=== PATIENT | female | born 1965 | race Caucasian/White ===

== ENCOUNTER 2022-01-17 23:45 | Inpatient (IN) | payer MEDICARE, MEDICAID, SELFPAY ==
[2022-01-18 00:12] VITALS: BP 145/76; PULSE 79; RESP 16; TEMP 36.7; O2SAT 97; BMI 52.4
[2022-01-18 01:31] LABS: Bedside Glucose 196 mg/dL (74-106)
[2022-01-18] MEDS: APIXABAN 5 MG TABLET PO ×3 (02:14→22:45)
--- NOTE | 2022-01-18 02:53 | NURSING ---
2335 pt arrived from [facility] to the unit via cot and ambulance service. pt is alert and oriented x's 3 and is pleasant and cooperative with staff. clinical findings and admission assessment completed. pt declined any hs care when offered, eliquis given at 0215. time spent with pt was one hour and 30 minutes .
--- NOTE | 2022-01-18 04:24 | NURSING ---
REVIEWED AND AGREE WITH TARGET WORKER'S FUNCTIONAL ASSESSMENT AND HANDOFF CHARTING.
[2022-01-18 05:44] LABS: Hematocrit 43.3 % (37-47); Hemoglobin 13.8 g/dL (12.0-15.0); Mean Corp Hgb Conc 31.9 g/dL (32-36); Mean Corpuscular Hgb 24.3 pg (27.0-32.0); Mean Corpuscular Volume 76.1 fL (81-99); Mean Platelet Vol. 10.2 fl (6.2-12.0); POSITIVE MORPHOLOGY YES; Platelet Count 332 K/mm3 (150-450); RBC Distribution Width CV 21.9 % (11.6-14.6); RBC Distribution Width SD 57.8 fl (35.1-43.9); Red Blood Count 5.69 M/mm3 (4.2-5.4); White Blood Count 11.4 K/mm3 (4.4-11.0)
[2022-01-18 05:46] LABS: Scan Indicated on CBC? Y/N YES- FLAGS NOTED
[2022-01-18 06:10] LABS: Differential Comment SCANNED
[2022-01-18 06:28] LABS: ALB/GLOB Ratio 0.8 RATIO (0.9-2.4); AST(SGOT) 24 U/L (15-37); Alanine Aminotransfer ALT/SGPT 28 U/L (13-56); Albumin, Serum 3.3 g/dL (3.2-5.0); Alkaline Phosphatase 97 U/L (45-117); Anion Gap 4 (5-15); BUN 26 mg/dL (7-18); BUN/Creat Ratio 25.2 RATIO (10-20); Calcium,Total 9.6 mg/dL (8.5-10.1); Chloride 102 mmol/L (98-107); Creatinine, Serum 1.03 mg/dL (0.55-1.02); EST Glomerular Filtration Rate 59 mL/min (>60); Est Glom Filt Rate - Afr Amer 72 mL/min (>60); Estimated Creatinine Clearance 56.19 ml/min; Globulin 3.9 g/dL (2.2-4.2); Glucose 184 mg/dL (74-106); Magnesium 1.9 mg/dL (1.6-2.6); Phosphorus 4.6 mg/dL (2.5-4.9); Potassium 3.6 mmol/L (3.5-5.1); Protein, Total 7.2 g/dL (6.4-8.2); Sodium Level 138 mmol/L (136-145)
[2022-01-18 07:01] LABS: Bedside Glucose 211 mg/dL (74-106)
[2022-01-18] MEDS: Aspirin 81 MG TAB.CHEW PO (07:57)
[2022-01-18 10:00] VITALS: BP 125/57; PULSE 78; RESP 18; TEMP 36.4; O2SAT 96
[2022-01-18] MEDS: Amiodarone 200 MG Tablet PO (10:13)
[2022-01-18] MEDS: Senna/Docusate Sodium 1 Tablet 2 TABLET PO ×2 (10:13→22:46)
[2022-01-18] MEDS: Potassium Chloride Oral Tablet 20 MEQ PO (10:13)
[2022-01-18] MEDS: Furosemide 40 MG Tablet PO ×2 (10:13→18:29)
[2022-01-18] MEDS: Spironolactone 25 MG Tablet PO (10:13)
[2022-01-18] MEDS: Carvedilol 6.25 MG Tablet PO ×2 (10:14→22:45)
[2022-01-18] MEDS: Empagliflozin 25 MG Tablet PO (10:14)
[2022-01-18] MEDS: Nystatin Powder 15gm Bottle 1 APPLIC TOPICAL (10:18)
[2022-01-18] MEDS: Menthol/Lanolin/Calamine/Znox 113 GM Tube 1 APPLIC TOPICAL (10:19)
[2022-01-18 11:36] LABS: Bedside Glucose 244 mg/dL (74-106)
--- NOTE | 2022-01-18 12:19 | HP.PCM_ITS ---
HPI - General General Date of Admission: 01/17/22 HPI Narrative KARI DEJESUS, is a 56 YO F with a PMH of HTN, DM II, morbid obesity, PAF, chronic CHF with reduced EF at 35-40% on ECHO in October 2021 (thought to be due to tachycardia induced CM), prolonged QT interval, chronic anticoagulation on Xarelto and a hx of DCCV at [facility] in October of 2021 for AF (uncontrolled with Metoprolol, Diltiazem and Tikosyn and with decompensated acute CHF). She was later transitioned from Tikosyn to Amiodarone due to QT prolongation. Kari presented to an outside ED on 01/10/22 with c/o SARMIENTO and a sense that something was not right. A NC CTB was unremarkable and she was discharged home. The following day she had R arm weakness and slurred speech and presented to the ED at [facility]. A NC CT brain had no acute findings. CTA showed no large vessel occlusion. On PE she had a R facial droop and weakness/numbness in the R arm and the R leg. The NIHSS score was 8. MRI was not readily available and on 01/12/22 she had a repeat CT of the brain which showed increased conspicuity of multiple hypodensities throughout the bilateral cerebral hemispheres, most notable in the left basal ganglia and the frontal lobe. There was no intracranial hemorrhage. A CTP was symmetric. she was outside the window for TPA at presentation. She was seen and evaluated by PT/OT/ST and a recommendation for transfer to an inpt rehab unit was made. She was transferred to the inpt acute rehab unit at [facility] on 01/17/22 for 3 hours of therapy daily to restore function/independence at or near her prior level of function. Prior to the stroke she used a WW and was independent with all ADL's. She lives with her mot her. Prior to transfer she was transitioned from Xarelto to Eliquis due to presumed embolic CVA's while on Xarelto. [facility] Medical History (Updated 01/23/22 @ 15:[address] Marva Kimbrough DO) Atrial fibrillation Chronic systolic CHF (congestive heart failure) Diabetes mellitus, type 2 History of cardioversion Morbid obesity with BMI of 50.0-59.9, adult Home Medications amiodarone 200 mg PO DAILY 01/18/22 [History Last Taken Unknown] apixaban 5 mg PO Q12H 01/18/22 [History Last Taken Unknown] aspirin 81 mg PO DAILY 01/18/22 [History Last Taken Unknown] atorvastatin 80 mg PO QHS 01/18/22 [History Last Taken Unknown] carvedilol 6.25 mg PO BID 01/18/22 [History Last Taken Unknown] empagliflozin 10 mg PO DAILY 01/18/22 [History Last Taken Unknown] furosemide 40 mg PO BID 01/18/22 [History Last Taken Unknown] potassium chloride 20 meq PO DAILY 01/18/22 [History Last Taken Unknown] spironolactone 25 mg PO DAILY 01/18/22 [History Last Taken Unknown] Allergy/AdvReac Type Severity Reaction Status Date / Time loperamide [From Imodium A-D] Allergy Hives Verified 01/18/22 00:34 Family History (Updated 01/20/22 @ 12:[address] Marva Kimbrough DO) Father Diabetes Myocardial infarction Mother Cancer ovarian CA Surgical History (Updated 01/20/22 @ 12:[address] Marva Kimbrough DO) History of section Social History (Updated 01/20/22 @ 13:[address] Marva Kimbrough DO) household members: spouse Smoking Status: Never smoker alcohol intake: never substance use type: does not use ROS Constitutional Constitutional: Reports change in weight, weakness, weight loss and other Deta ils: She tells me that she has lost 100 lbs since October with diuretics and change in her diet. ; Denies anorexia, chills, fatigue, fever(s) or night sweats Eyes Eyes: Denies blurry vision, change in vision, eye pain, itchy eyes or loss of vision ENT HEENT: Denies abnormal hearing, dysphagia, headache(s), hearing loss, nasal congestion or sore throat Cardiovascular Cardiovascular: Reports edema and other Details: lightheadedness when first sitting up and when standing. ; Denies chest pain, dyspnea on exertion, lightheadedness, orthopnea, palpitations, paroxysmal nocturnal dyspnea or sync ope Respiratory/Chest Respiratory/Chest: Reports shortness of breath with exertion and other Details: She snores and sometimes wakes herself up. She also has restless legs. She has never had a sleep study. ; Denies cough, dyspnea, shortness of breath at rest or wheezing Gastrointestinal Gastrointestinal: Denies abdominal pain, constipation, diarrhea, dyspepsia, hematemesis, hematochezia, nausea or vomiting Genitourinary Genitourinary: Denies dysuria, hematuria, nocturia, urinary frequency, urinary hesitancy, urinary incontinence or urinary urgency Musculoskeletal Musculoskeletal: Reports joint pain, joint swelling and other Details: She c/o pain in both knees and she is on disability for this ; Denies back pain or neck pain Integumentary Integumentary: Reports dry skin; Denies jaundice, rash or wounds Neurologic Neurologic: Reports abnormal gait, dizziness and focal weakness; Denies confusion, disequilibrium, headache(s), paresthesias, seizures, sensory deficit or tremor(s) Psychiatric Psychiatric: Reports depression; Denies anxiety, homicidal ideation or suicidal ideation Endocrine Endocrinology: Reports change in body appearance; Denies polydipsia or polyuria Hematologic/Lymphatic Hematologic/Lymphatic: Denies easy bleeding, easy bruising or lymphadenopathy Allergic/Immunologic Allergic/Immunologic: Denies rhinitis, eczemia or asthma Vital Signs Vital Signs Vital Signs: 01/18/22 00:12 01/18/22 10:00 01/18/22 10:30 Temperature 98.0 F 97.6 F L Temperature Source Oral Oral Pulse Rate 79 78 Respiratory Rate 16 18 Respiratory Effort Normal Non-Labored Respiratory Depth Normal Respiratory Pattern Normal Blood Pressure 145/76 H 125/57 H Blood Pressure Mean 99 79 Blood Pressure Source Monitor Monitor Blood Pressure Position Semi-Fowlers Semi-Fowlers Blood Pressure Location Left Arm Left Arm Pulse Ox 97 96 Oxygen Delivery Method Room Air Room Air Room Air Weight Weight: 315 lb Body Mass Index (BMI) 52.4 Indicators for Scoring Admitted with or Primary Diagnosis of CVA/Stroke: Yes Hx of CVA/Stroke: Yes Modified [place] Score MRS Score at time of Evaluation: 5-Severe disability NIHSS NIHSS 1a. Level of Consciousness: Alert; keenly responsive 1b. LOC Questions: Answers BOTH questions correctly. 1c. LOC Commands: Performs both tasks correctly. 2. Best Gaze: Normal 3. Visual: No visual loss 4. Facial Palsy: Minor paralysis (flattened nasolabial fold, asymmetry on smiling) 5a. Left Arm: No drift; arm holds 90 (or 45) degrees for full 10 seconds 5b. Right Arm: No movement 6a. Left Leg: No drift; leg holds 30-degree position for full 5 seconds 6b. Right Leg: Drift; leg falls by the end of 5-seconds, but does not hit bed 7. Limb Ataxia: Absent 8. Sensory: Normal; no sensory loss 9. Best Language: [id number] aphasia; (mild) 10. Dysarthria: [id number] dysarthria; 11. Extinction and Inattention: No abnormality Total: 8 Stroke Questions Stroke Team Activated: No (this is not the acute presentation of stroke/we are rehab for completed CVA) Physical Exam Const alert, oriented x3 and well nourished Constitutional Narrative: Tearful at times and telling me that she is depressed. General Appearance: cooperative and well developed HEENT normocephalic Eyes PERRL and EOMs intact bilaterally Neck supple and no carotid bruits General: trachea midline; Negative for lymphadenopathy Resp normal respiratory effort and clear to auscultation bilaterally Effort and Inspection: Negative for tachypneic or uses accessory muscles Auscultation: diminished lung sounds Cardio regular rate, regular rhythm, S1 normal heart sound, S2 normal heart sound, no murmurs and no gallops Cardio Narrative: Distant heart sounds - more likely than not due to body habitus. GI soft to palpation, non-tender and non-distended GI Narrative: Distant BS's, no guarding with palpation. Extremity no calf tenderness Extremity Narrative: She has ANDRES wraps on and they are falling down. General Extremity: edema; Negative for clubbing or cyanosis Skin General Skin Exam: no breakdown Rashes: No rashes noted Wounds: Negative for wounds noted Neuro Neuro Narrative: see NIHSS No movement at all in the RUE......not even a shoulder shrug. R facial droop and drooling. Dysarthria. Some expressive aphasia......saying the wrong pronouns and words at times........she can self co rrect if I ask her to repeat. Has weakness in the R leg but, she was seated in a chair at the time of my exam and I will need to re-evaluate when she is in bed. Psych cooperative Mood & Affect: depressed; Negative for anxious Thought Content: No delusion(s) and No hallucination(s) Results Lab / Micro Data Result Diagrams: 01/18/22 05:36 01/23/22 05:49 Labs: Laboratory Results - last 24 hr 01/18/22 01:16: POC Glucose 196 H 01/18/22 05:36: WBC 11.4 H, RBC 5.69 H, Hgb 13.8, Hct 43.3, MCV 76.1 L, MCH 24.3 L, MCHC 31.9 L, RDW Std Deviation 57.8 H, RDW Coeff of Gwendolyn 21.9 H, Plt Count 332, MPV 10.2, Differential Comment SCANNED 01/18/22 05:36: Sodium 138, Potassium 3.6, Chloride 102, Carbon Dioxide 32.0, Anion Gap 4 L, BUN 26 H, Creatinine 1.03 H, Estim Creat Clear Calc 56.19, Est GFR (MDRD) Af Amer 72, Est GFR (MDRD) Non-Af 59 L, BUN/Creatinine Ratio 25.2 H, Glucose 184 H, Calcium 9.6, Phosphorus 4.6, Magnesium 1.9, Total Bilirubin 1.70 H, AST 24, ALT 28, Alkaline Phosphatase 97, Total Protein 7.2, Albumin 3.3, Globulin 3.9, Albumin/Globulin Ratio 0.8 L 01/18/22 06:55: POC Glucose 211 H 01/18/22 11:32: POC Glucose 244 H Assessment & Plan Assessment/Plan (1) Physical debility: (2) Embolic cerebral infarction: (3) Atrial fibrillation: QUALIFIERS: Atrial fibrillation type: persistent (not longstanding) Qualified Code(s): I48.19 - Other persistent atrial fibrillation (4) Tachycardia induced cardiomyopathy: (5) Chronic anticoagulation: (6) Dysarthria: (7) Right hemiparesis: (8) Facial droop due to stroke: (9) Sleep disorder breathing: (10) Morbid obesity with BMI of 50.0-59.9, adult: (11) RBC microcytosis: (12) CRF (chronic renal failure): QUALIFIERS: Chronic kidney disease stage: stage 2 (mild) Qualified Code(s): N18.2 - Chronic kidney disease, stage 2 (mild) (13) Elevated bilirubin: (14) Restless leg: (15) Depression: QUALIFIERS: Depression Type: reactive depression Qualified Code(s): F32.9 - Major depressive disorder, single episode, unspecified (16) Diabetes mellitus, type 2: QUALIFIERS: Diabetes mellitus care home insulin use: without care home use Diabetes mellitus complication status: with circulatory complication Diabetes mellitus complication detail: with other circulatory complications Qualified Code(s): E11.59 - Type 2 diabetes mellitus with other circulatory complications (17) Chronic systolic CHF (congestive heart failure): PLAN: PLAN PT for gait stability OT for ADL's ST for evaluation Analgesics as needed Bowel protocol Fall precautions Assess for Anxiety/Depression GI prophylaxis not necessary - she has no hx of GERD or PUD and she is asymptomatic DVT prophylaxis not necessary - she is on full dose Eliquis due to AF Follow up with PCP, cardiology and neurology following DC from IP Rehab AM lab including CMP, CBC, Mag and Phos - personally reviewed Start Effexor XR 75 mg daily for depression, to help suppress appetite and for chronic pain. Overnight trending pulse ox - apparently she has been wearing her sister's CPAP......she has never had a sleep study. Formal sleep study post DC counselling given for weight loss Nutritional consult with the industrial machine operator I suspect she is going to need SNF for additional therapy following DC from acute rehab. Would benefit from psychotherapy. BS's are elevated on Jardiance - may be transient due to recent CVA. Will order SSI coverage and monitor for a few days
--- NOTE | 2022-01-18 13:14 | PCM.RU.PYE ---
Admission Information Primary Diagnosis:: Post stroke debility. Status Changes from Prescreening?: No changes Identified Actual Problem List:: Skin Intergrity, Depression, Alteration in Sleep, Mobility Impaired, Self Care Deficit, Diabetes, Hyperglycemia, Alteration/ Air Exchange, Fluid Change-Dehydration and Alteration-Leisure Activ. Potential Problem List:: DVT, Bleeding, Infection, UTI, Aspiration, Falls, Skin Integrity and Depression Risk of Complications DVT: CORI Hose and - (Eliquis) Bleeding: Monitor Lab Values, Nursing to Teach Precautions for anti-coagulation therapy., Wound, if applicable, to be assessed every shift. and Stroke patients assessed for lethargy or change in status. Infection: Clinical Staff to Monitor for S/S of infection: and S/S of infection include fever, redness, warmth, etc. Urinary Tract Infection: Monitor for frequency, burning, discomfort, or incontinence. and Nursing will obtain urine sample for urinalysis and C&S when ordered. Aspiration: Clinical staff will monitor for coughing, drooling, congestion., Speech will evaluate swallowing and dsyphasia. and Nursing will monitor patient swallowing during meals. Falls: Patient will be evaluated for Fall Precautions and Patient will be placed on Fall Precautions as indicated per protocol. Skin Breakdown: Nursing will assess skin daily using assessment tool. and Nursing will place on Skin Breakdown Precautions as indicated. Pain: Clinical staff will assess patient's pain level per protocol., Medications will be given, if needed, and the pain level reassessed. and Other methods: Massage, distraction, decrease stimulus, etc. used PRN. Plan of Care Patient requires physician specializing in physical medicine and rehab oversight to provide close medical supervision of rehab issues including: Pain Management, Sleep Problems, Bowel and Bladder, Medical and co-morbidity Management, DVT prophylaxis, Rehabilitation Leadership and Coordination of treatment team Patient needs Physical Therapy: For a minimum of 1 hour and At least 5 out of 7 days Patient needs Physical Therapy to improve:: Mobility, Strengthening, Transfers, Stretching, ROM, Endurance, Stairs, Gait and Balance Patient needs Occupational Therapy: For a minimum of 1 hour and At least 5 out of 7 days Patient needs Occupational Therapy to improve ADL's incl.: Eating, Grooming, Bathing, Dressing, Toileting, Toilet transfers, Community Reintegration, Higher functioning activities, Household tasks, Adaptive Equipment, Splinting and Other activities as determined Patient requires speech therapy: For a minimum of 1 hour and At least 5 out of 7 days Patient requires speech therapy for: Swallowing, Cognition, Language Skills and Compensatory Strategies Patient requires 24/7 Rehabilitation Nursing for: Pain Issues, Identifying and preventing risk factors, Monitoring and reporting current medical conditions, Assisting with ambulation, transfer, and all ADL's, Teaching patients about disease process and medications, Family teaching, Providing safe environment, Bowel and Bladder Issues, Skin integrity and Medication Management Patient needs Statistical Typist/ Case Management for: Discharge Planning, Arranging Home Equipment or Services and Family Interventions Patient needs Dietary and Nutrition Services for: Adequate Nutrition, Nutritional Supplements and Nutritional Education Goals Patient will remain: free from falls and or injury at time of discharge. Patient will perform bed mobility at: MOD I level of assist. Patient will complete transfers from bed to chair at: MOD I level of assist. Patient will ambulate: - (15 feet using the rail with min bruno X 2 for gait stability and safety) Patient will propel wheelchair: 100 feet and with MOD I assist Patient will complete upper body dressing at: - (Minimal assistance x1) Patient will complete lower body dressing at: - (Minimal assistance x1) Patient will complete toileting at: - (Minimal assistance x2 for safety) Patient will perform bathing at: MOD I level of assist. Patient will complete grooming at: - (Minimal assistance x1) Patient will complete home management skills at: MOD I level of assist. Patient will achieve: - (1 curb step) Patient will have pain level of: of 3 or less Patient's skin will: remain intact Patient will receive: adequate nutrition. Discharge Planning Pt Prognosis for Sig. Practical Improv. w/in Reasonable Time: Good Estimated Length of stay (days): 28 Anticipated D/C Destination: Longterm Facility Was Preadmission Assessment Accurate?: Yes
[2022-01-18 14:00] LABS: Cholesterol 104 mg/dL (200); High Density Lipoprotein 32 mg/dL; Triglycerides 138 mg/dL; Very Low Density Lipoprotein 28 mg/dL (5-40)
[2022-01-18 14:07] LABS: Hemoglobin A1c 7.6 % (3.8-5.6)
[2022-01-18 14:39] VITALS: BMI 52.4
--- NOTE | 2022-01-18 14:40 | CASEMGMT ---
Social Work SW completed PHQ9 depression assessment with pt due to stroke. Pt with score of 11/17 indicating minimal depression. Pt educated on stroke and depression correlation. ROBERT Crenshaw
[2022-01-18] MEDS: Insulin Lispro 100 UNIT/ML INSULN.PEN SC (16:48)
[2022-01-18 19:00] VITALS: BP 128/65; PULSE 73; RESP 16; TEMP 36.2; O2SAT 94
[2022-01-18 21:54] VITALS: PULSE 77; O2SAT 96
[2022-01-18] MEDS: Arthritis Pain Compound 60 CLICK TUBE TOPICAL (22:45)
[2022-01-18] MEDS: SACUBITRIL/VALSARTAN 24/26 MG TABLET 1 EACH PO (22:46)
[2022-01-18 23:31] LABS: Bedside Glucose 214 mg/dL (74-106)
[2022-01-18 23:47] LABS: Bedside Glucose 182 mg/dL (74-106)
[2022-01-19 01:25] VITALS: BMI 52.4
[2022-01-19 06:36] VITALS: O2SAT 97
[2022-01-19 06:36] LABS: Bedside Glucose 167 mg/dL (74-106)
[2022-01-19] MEDS: Insulin Lispro 100 UNIT/ML INSULN.PEN SC ×3 (07:49→16:46)
[2022-01-19] MEDS: Aspirin 81 MG TAB.CHEW PO (08:11)
[2022-01-19 08:40] VITALS: BP 130/64; PULSE 56; RESP 20; TEMP 36.8; O2SAT 97
[2022-01-19] MEDS: Empagliflozin 25 MG Tablet PO (09:10)
[2022-01-19] MEDS: Venlafaxine XR 75 MG Capsule PO (09:10)
[2022-01-19] MEDS: APIXABAN 5 MG TABLET PO ×2 (09:10→20:59)
[2022-01-19] MEDS: Spironolactone 25 MG Tablet PO (09:11)
[2022-01-19] MEDS: SACUBITRIL/VALSARTAN 24/26 MG TABLET 1 EACH PO ×2 (09:11→20:48)
[2022-01-19] MEDS: Carvedilol 6.25 MG Tablet PO ×2 (09:11→20:48)
[2022-01-19] MEDS: Potassium Chloride Oral Tablet 20 MEQ PO (09:11)
[2022-01-19] MEDS: Amiodarone 200 MG Tablet PO (09:11)
[2022-01-19 11:41] LABS: Bedside Glucose 189 mg/dL (74-106)
[2022-01-19] MEDS: Arthritis Pain Compound 60 CLICK TUBE TOPICAL ×2 (11:57→20:49)
[2022-01-19] MEDS: Menthol/Lanolin/Calamine/Znox 113 GM Tube 1 APPLIC TOPICAL ×2 (11:58→20:49)
[2022-01-19] MEDS: Nystatin Powder 15gm Bottle 1 APPLIC TOPICAL ×2 (11:59→20:50)
[2022-01-19] MEDS: Furosemide 40 MG Tablet PO ×2 (11:59→18:12)
[2022-01-19] MEDS: Senna/Docusate Sodium 1 Tablet 2 TABLET PO (11:59)
[2022-01-19 14:47] VITALS: BMI 52.4
[2022-01-19 16:51] LABS: Bedside Glucose 192 mg/dL (74-106)
[2022-01-19 19:29] VITALS: BP 155/76; PULSE 63; RESP 18; TEMP 36.5; O2SAT 97
[2022-01-19 21:51] LABS: Bedside Glucose 166 mg/dL (74-106)
[2022-01-19 22:04] VITALS: PULSE 63; RESP 18; O2SAT 97
[2022-01-19 22:35] VITALS: BMI 52.4
--- NOTE | 2022-01-20 04:08 | NURSING ---
REVIEWED AND AGREE WITH STAGE SET UP WORKER'S FUNCTIONAL ASSESSMENT AND HANDOFF CHARTING.
[2022-01-20 05:15] VITALS: BP 137/71; BP 141/72; PULSE 56; PULSE 57
--- NOTE | 2022-01-20 05:18 | NURSING ---
When obtaining orthostatics pt was unable to stand.
[2022-01-20 06:30] LABS: Bedside Glucose 157 mg/dL (74-106)
[2022-01-20 06:48] VITALS: O2SAT 95
[2022-01-20] MEDS: Insulin Lispro 100 UNIT/ML INSULN.PEN SC ×2 (07:54→17:01)
[2022-01-20] MEDS: Aspirin 81 MG TAB.CHEW PO (07:55)
[2022-01-20] MEDS: Spironolactone 25 MG Tablet PO (07:55)
[2022-01-20] MEDS: Venlafaxine XR 75 MG Capsule PO (07:56)
[2022-01-20] MEDS: Amiodarone 200 MG Tablet PO (07:56)
[2022-01-20] MEDS: Arthritis Pain Compound 60 CLICK TUBE TOPICAL ×2 (07:56→22:02)
[2022-01-20] MEDS: Carvedilol 6.25 MG Tablet PO ×2 (07:56→22:02)
[2022-01-20] MEDS: Potassium Chloride Oral Tablet 20 MEQ PO (07:57)
[2022-01-20] MEDS: Empagliflozin 25 MG Tablet PO (07:57)
[2022-01-20] MEDS: SACUBITRIL/VALSARTAN 24/26 MG TABLET 1 EACH PO ×2 (07:57→22:02)
[2022-01-20] MEDS: Furosemide 40 MG Tablet PO ×2 (07:57→17:02)
[2022-01-20] MEDS: Senna/Docusate Sodium 1 Tablet 2 TABLET PO (07:58)
[2022-01-20] MEDS: APIXABAN 5 MG TABLET PO ×2 (07:58→22:02)
[2022-01-20] MEDS: Menthol/Lanolin/Calamine/Znox 113 GM Tube 1 APPLIC TOPICAL ×2 (08:03→22:03)
[2022-01-20] MEDS: Nystatin Powder 15gm Bottle 1 APPLIC TOPICAL ×2 (08:05→22:03)
[2022-01-20 08:30] VITALS: BP 117/72; PULSE 62; RESP 16; TEMP 36.7; O2SAT 96
[2022-01-20 11:21] LABS: Bedside Glucose 111 mg/dL (74-106)
--- NOTE | 2022-01-20 15:56 | PN_ITS ---
Subjective Subjective Afebrile VSS Maintaining appropriate oxygen saturation on RA Oral intake is good Discussed with nursing - no problems that need addressed Reviewed the PT/OT/ST notes Medication list reviewed. The blood sugar record was reviewed. There have been no blood sugars greater than 200 as of yet. She is sleeping well. the overnight trending pulse ox was reviewed. the pulse ox drops to 89% or less approximately 3.5% of the time she was monitored. Denies chest pain, shortness of breath at rest, dysuria, cephalgia, nausea/vomiting/abdominal pain, lightheadedness, calf pain. She has no bleeding from the nose, gums, anus or in the urine. Objective Data Objective Data Vital Signs: Vital Signs Temp Pulse Resp BP Pulse Ox 98.1 F 62 16 117/72 96 01/20/22 08:30 01/20/22 08:30 01/20/22 08:30 01/20/22 08:30 01/20/22 08:30 Oxygen Flow Rate (L/min) 0 Oxygen Delivery Method Room Air Weight: 328 lb 14.875 oz Body Mass Index (BMI) 52.4 Intake & Output: Intake and Output for Last 24 Hours 01/18/22 01/19/22 01/20/22 23:59 23:59 23:59 Intake Total 1320 / 1320 Balance 1320 / 1320 Lab / Micro Data Result Diagrams: 01/18/22 05:36 01/23/22 05:49 Labs: Laboratory Results - last 24 hr 01/19/22 16:44: POC Glucose 192 H 01/19/22 21:47: POC Glucose 166 H 01/20/22 06:25: POC Glucose 157 H 01/20/22 11:12: POC Glucose 111 H Physical Exam Const alert, oriented x3 and no apparent distress General Appearance: cooperative Resp normal respiratory effort and clear to auscultation bilaterally Resp Narrative: Diminished air exchange in the bases however this may be due to body habitus. Effort and Inspection: able to speak in complete sentences Cardio regular rate, regular rhythm, no murmurs and no gallops GI normal to inspection, nondistended, normoactive bowel sounds, soft to palpation and non-tender Extremity no calf tenderness Extremity Narrative: She has some pedal edema but it is improving with the ANDRES wraps Skin General Skin Exam: no breakdown Rashes: no rashes Assessment & Plan Assessment/Plan (1) Embolic cerebral infarction: (2) Atrial fibrillation: QUALIFIERS: Atrial fibrillation type: persistent (not longstanding) Qualified Code(s): I48.19 - Other persistent atrial fibrillation (3) Sleep disorder breathing: (4) Diabetes mellitus, type 2: QUALIFIERS: Diabetes mellitus termite control servicer insulin use: without termite control servicer use Diabetes mellitus complication status: with circulatory complication Diabetes mellitus complication detail: with other circulatory complications Qualified Code(s): E11.59 - Type 2 diabetes mellitus with other circulatory complications PLAN: 1. Will need an overnight sleep study at [place]. STOP BANG score is 6 and she has an abnormal overnight trending pulse ox 2. continue the SSI through the weekend and if there are no BS's > 200 will likely DC and continue Jardiance. 3. SSRI's can increase the hypoglycemic efficacy of the Jardiance so will monitor closely while she is being started on Effexor. Charges/Coding Visit Charges Inpatient E&M: 06587 Subs Hosp L2
[2022-01-20 16:16] LABS: Bedside Glucose 186 mg/dL (74-106)
[2022-01-20 16:25] VITALS: BMI 52.4
[2022-01-20 19:27] VITALS: BP 154/77; PULSE 89; RESP 16; TEMP 36.6; O2SAT 95
[2022-01-20 21:17] LABS: Bedside Glucose 195 mg/dL (74-106)
[2022-01-21 01:27] VITALS: BMI 52.4
--- NOTE | 2022-01-21 02:19 | NURSING ---
Reviewed and agree with TRIBAL JUDGE documentation and assessment charting.
[2022-01-21 06:51] LABS: Bedside Glucose 154 mg/dL (74-106)
[2022-01-21 07:05] VITALS: BP 141/69; PULSE 56; RESP 18; TEMP 36; O2SAT 94
[2022-01-21] MEDS: Insulin Lispro 100 UNIT/ML INSULN.PEN SC ×3 (08:18→17:05)
[2022-01-21] MEDS: Spironolactone 25 MG Tablet PO (08:19)
[2022-01-21] MEDS: Arthritis Pain Compound 60 CLICK TUBE TOPICAL ×2 (08:19→20:48)
[2022-01-21] MEDS: Aspirin 81 MG TAB.CHEW PO (08:19)
[2022-01-21] MEDS: Nystatin Powder 15gm Bottle 1 APPLIC TOPICAL ×2 (08:20→20:50)
[2022-01-21] MEDS: Amiodarone 200 MG Tablet PO (08:20)
[2022-01-21] MEDS: Menthol/Lanolin/Calamine/Znox 113 GM Tube 1 APPLIC TOPICAL ×2 (08:20→20:48)
[2022-01-21] MEDS: Carvedilol 6.25 MG Tablet PO ×2 (08:21→20:51)
[2022-01-21] MEDS: Venlafaxine XR 75 MG Capsule PO (08:22)
[2022-01-21] MEDS: Empagliflozin 25 MG Tablet PO (08:23)
[2022-01-21] MEDS: APIXABAN 5 MG TABLET PO ×2 (08:23→20:51)
[2022-01-21] MEDS: SACUBITRIL/VALSARTAN 24/26 MG TABLET 1 EACH PO ×2 (08:23→20:51)
[2022-01-21] MEDS: Potassium Chloride Oral Tablet 20 MEQ PO (08:24)
[2022-01-21] MEDS: Senna/Docusate Sodium 1 Tablet 2 TABLET PO ×2 (08:25→20:50)
[2022-01-21] MEDS: Furosemide 40 MG Tablet PO ×2 (08:25→17:06)
[2022-01-21 09:46] VITALS: PULSE 56; O2SAT 96
[2022-01-21 11:46] LABS: Bedside Glucose 164 mg/dL (74-106)
[2022-01-21 16:27] VITALS: BMI 52.4
[2022-01-21 16:56] LABS: Bedside Glucose 159 mg/dL (74-106)
--- NOTE | 2022-01-21 20:18 | CPS ---
was told by nurse cont pox trend was never taken out of pt room-took out [place] 01/21/22
[2022-01-21 20:30] VITALS: BP 147/86; PULSE 68; PULSE 69; RESP 18; TEMP 36.6; O2SAT 94; BMI 52.4
[2022-01-21 23:01] LABS: Bedside Glucose 167 mg/dL (74-106)
--- NOTE | 2022-01-22 01:52 | NURSING ---
Reviewed and agree with CERTIFIED PESTICIDE APPLICATOR assessment.
[2022-01-22 06:51] LABS: Bedside Glucose 159 mg/dL (74-106)
[2022-01-22 07:43] VITALS: BP 140/62; PULSE 57; RESP 16; TEMP 36.3; O2SAT 97
[2022-01-22] MEDS: Insulin Lispro 100 UNIT/ML INSULN.PEN SC ×2 (08:32→16:56)
[2022-01-22] MEDS: Furosemide 40 MG Tablet PO ×2 (08:35→18:35)
[2022-01-22] MEDS: Arthritis Pain Compound 60 CLICK TUBE TOPICAL ×2 (08:38→21:41)
[2022-01-22] MEDS: APIXABAN 5 MG TABLET PO ×2 (08:39→21:41)
[2022-01-22] MEDS: Spironolactone 25 MG Tablet PO (08:39)
[2022-01-22] MEDS: Carvedilol 6.25 MG Tablet PO ×2 (08:40→21:41)
[2022-01-22] MEDS: Venlafaxine XR 75 MG Capsule PO (08:40)
[2022-01-22] MEDS: Aspirin 81 MG TAB.CHEW PO (08:40)
[2022-01-22] MEDS: Empagliflozin 25 MG Tablet PO (08:40)
[2022-01-22] MEDS: Potassium Chloride Oral Tablet 20 MEQ PO (08:40)
[2022-01-22] MEDS: Amiodarone 200 MG Tablet PO (08:40)
[2022-01-22] MEDS: Senna/Docusate Sodium 1 Tablet 2 TABLET PO (08:40)
[2022-01-22] MEDS: SACUBITRIL/VALSARTAN 24/26 MG TABLET 1 EACH PO ×2 (08:41→21:41)
[2022-01-22] MEDS: Nystatin Powder 15gm Bottle 1 APPLIC TOPICAL ×2 (08:54→21:42)
[2022-01-22] MEDS: Menthol/Lanolin/Calamine/Znox 113 GM Tube 1 APPLIC TOPICAL ×2 (08:54→21:41)
[2022-01-22 12:16] LABS: Bedside Glucose 142 mg/dL (74-106)
[2022-01-22 16:47] VITALS: BMI 52.4
[2022-01-22 17:01] LABS: Bedside Glucose 151 mg/dL (74-106)
[2022-01-22 19:45] VITALS: BP 128/65; PULSE 63; RESP 18; TEMP 36.4; O2SAT 96; BMI 52.4
[2022-01-22 22:01] LABS: Bedside Glucose 158 mg/dL (74-106)
--- NOTE | 2022-01-23 03:35 | NURSING ---
Reviewed and agree with HOUSEKEEPING SUPERVISOR assessment.
[2022-01-23 06:26] LABS: Anion Gap 4 (5-15); BUN 33 mg/dL (7-18); BUN/Creat Ratio 33.7 RATIO (10-20); Calcium,Total 8.9 mg/dL (8.5-10.1); Chloride 105 mmol/L (98-107); Creatinine, Serum 0.98 mg/dL (0.55-1.02); EST Glomerular Filtration Rate 63 mL/min (>60); Est Glom Filt Rate - Afr Amer 76 mL/min (>60); Estimated Creatinine Clearance 59.05 ml/min; Glucose 134 mg/dL (74-106); Magnesium 2.4 mg/dL (1.6-2.6); Potassium 4.1 mmol/L (3.5-5.1); Sodium Level 140 mmol/L (136-145)
[2022-01-23 06:41] LABS: Bedside Glucose 153 mg/dL (74-106)
[2022-01-23 07:03] VITALS: O2SAT 95
[2022-01-23] MEDS: Insulin Lispro 100 UNIT/ML INSULN.PEN SC ×2 (07:29→11:46)
[2022-01-23] MEDS: Aspirin 81 MG TAB.CHEW PO (07:32)
[2022-01-23 07:46] VITALS: BP 151/68; PULSE 58; RESP 16; TEMP 36.3; O2SAT 100
[2022-01-23] MEDS: Furosemide 40 MG Tablet PO ×2 (10:02→18:07)
[2022-01-23] MEDS: Arthritis Pain Compound 60 CLICK TUBE TOPICAL ×4 (10:02→20:33)
[2022-01-23] MEDS: Potassium Chloride Oral Tablet 20 MEQ PO (10:02)
[2022-01-23] MEDS: SACUBITRIL/VALSARTAN 24/26 MG TABLET 1 EACH PO ×2 (10:03→20:30)
[2022-01-23] MEDS: Amiodarone 200 MG Tablet PO (10:03)
[2022-01-23] MEDS: Empagliflozin 25 MG Tablet PO (10:03)
[2022-01-23] MEDS: Spironolactone 25 MG Tablet PO (10:03)
[2022-01-23] MEDS: Venlafaxine XR 75 MG Capsule PO (10:03)
[2022-01-23] MEDS: APIXABAN 5 MG TABLET PO ×2 (10:03→20:30)
[2022-01-23] MEDS: Senna/Docusate Sodium 1 Tablet 2 TABLET PO (10:03)
[2022-01-23] MEDS: Carvedilol 6.25 MG Tablet PO ×2 (10:03→20:30)
[2022-01-23] MEDS: Menthol/Lanolin/Calamine/Znox 113 GM Tube 1 APPLIC TOPICAL ×2 (10:07→20:32)
[2022-01-23] MEDS: Nystatin Powder 15gm Bottle 1 APPLIC TOPICAL ×2 (10:08→20:31)
[2022-01-23 11:16] LABS: Bedside Glucose 153 mg/dL (74-106)
[2022-01-23 12:58] VITALS: BMI 52.4
--- NOTE | 2022-01-23 13:13 | CASEMGMT ---
Addendum entered by Luz Albrecht 01/23/22 16:01: [employer] can accept pt, but is not in-network with [facility], but pt can receive part B therapies and they can accept MDP. Received email correspondence from [facility] with pending#[phone] Addendum entered by Luz Albrecht 01/23/22 14:05: Assisted pt in completing KIERAN shea. Faxed to [facility]. Pt requests referral to [facility]. Referral made. Original Note: Social Work IDT met with patient for Team meeting. Discussed patient's progress in PT/OT/ST and nursing. Pt making progress. Explained [employer] insurance with NRD 01/24 and continued stay is not guaranteed. Discussed IDT recommendation for SNF stay after RU. Pt agreeable. Provided [facility] SNF list with Medicare data, per pt request. Pt to choose SNFs and notify this worker. Explained insurance may not approve SNF stay and will provide pt with KIERAN application to determine eligibility. Otherwise, pt will need to pay privately. Pt expressed understanding. Pt was started on antidepressant for decline in mood since stroke. Provided and explained Stroke Support Group Brochure . Educated SSG meeting 4/5 at 2pm; encouraged to attend. Pt will see how she feels. Agreed to be added to mailing list. SW to continue to follow for support and DC planning. STACY HunterW
--- NOTE | 2022-01-23 14:13 | PN_ITS ---
Progress Note Mylene was seen on team rounds today. No family was present in the room or to participate by phone. Afebrile VSS Maintaining appropriate oxygen saturation on RA while awake......pulse ox drops at night while sleeping. Oral intake is good. She is incontinent of urine. Discussed with nursing - no problems that need addressed Reviewed the PT/OT/ST notes - she is progressing - she a little shoulder shrug on the R now and she took 3 steps on the wall rail today. Medication list reviewed. Blood sugar record was reviewed. All BS's have been less than 200 and she is averaging 1 unit of insulin daily. No hypoglycemia. All lab was personally reviewed. Potassium is 4.1 today and the BUN is 33 with a creatinine of 0.98 which is stable. She tells me that she is sleeping OK. She denies SOB, cough, calf pain, dysuria, CP, palpitations, lightheadedness, Nausea. She tells me that she thinks the arthritic cream is helping with the knee pain. Today she is starting to c/o R shoulder pain. GFR is 63 which is consistent with stage II chronic renal failure. Calcium and magnesium are within normal limits. Physical Exam Const alert, oriented x3 and no apparent distress Constitutional Narrative: Sitting in the recliner at the bedside. Has been cooperative with therapy. ST is using the E STIM with her for facial droop and it is improving. Resp normal respiratory effort and clear to auscultation bilaterally Effort and Inspection: able to speak in complete sentences Cardio regular rate and regular rhythm GI normal to inspection, nondistended, normoactive bowel sounds, soft to palpation and non-tender Extremity no calf tenderness Extremity Narrative: pedal edema has decreased since admission and I think this is related to the compression provided by the ANDRES wraps. 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: (4) Right hemiparesis: (5) Dysarthria: (6) Physical debility: (7) Embolic cerebral infarction: (8) Chronic anticoagulation: (9) RBC microcytosis: (10) Morbid obesity with BMI of 50.0-59.9, adult: (11) Depression: QUALIFIERS: Depression Type: reactive depression Qualified Code(s): F32.9 - Major depressive disorder, single episode, unspecified (12) Sleep disorder breathing: (13) Diabetes mellitus, type 2: QUALIFIERS: Diabetes mellitus truck terminal manager insulin use: without mcfp use Diabetes mellitus complication status: with circulatory complication Diabetes mellitus complication detail: with other circulatory complications Qualified Code(s): E11.59 - Type 2 diabetes mellitus with other circulatory complications (14) Restless leg: PLAN: 1. I am concerned that since she failed Xarelto and had embolic CVA that another Factor Xa drug may not be the best choice. I did a literature search and there is actually not a lot of literature concerning use of Factor Xa inhibitors in patients with super obesity.....BMI exceeds 50. Will order an anti-Factor Xa activity - this will likely not be back for another week and will continue the Eliquis for now. She is currently in SR. 2. DC the SSI and continue the Jardiance and the carbohydrate/calorie contro lled 1800 shelby diet. 3. Continue the Effexor - she is tolerating so far without any adverse side effects. 4. Continue therapy 5. check iron studies because of the microcytosis 6. she will need a formal sleep study post DC from rehab. For now will use Oxygen at night. Visit Charges Inpatient E&M: 72026 Subs Hosp L2
[2022-01-23 16:35] LABS: Bedside Glucose 152 mg/dL (74-106)
[2022-01-23 19:42] VITALS: BP 144/90; PULSE 69; RESP 18; TEMP 36.9; O2SAT 96
[2022-01-23 21:57] VITALS: BMI 52.4
[2022-01-23 22:00] LABS: Bedside Glucose 151 mg/dL (74-106)
[2022-01-24 05:48] LABS: International Normalized Ratio 1.4; Prothrombin Time (Protime)PT. 16.3 SECONDS (11.7-14.9)
[2022-01-24 06:31] LABS: Bedside Glucose 158 mg/dL (74-106)
[2022-01-24] MEDS: Arthritis Pain Compound 60 CLICK TUBE TOPICAL ×7 (06:35→20:53)
[2022-01-24 07:29] VITALS: BP 172/73; PULSE 66; RESP 19; TEMP 36.6; O2SAT 100
[2022-01-24] MEDS: Spironolactone 25 MG Tablet PO (07:53)
[2022-01-24] MEDS: Aspirin 81 MG TAB.CHEW PO (07:53)
[2022-01-24] MEDS: Amiodarone 200 MG Tablet PO (07:55)
[2022-01-24] MEDS: Carvedilol 6.25 MG Tablet PO ×2 (07:56→20:49)
[2022-01-24] MEDS: Empagliflozin 25 MG Tablet PO (07:56)
[2022-01-24] MEDS: SACUBITRIL/VALSARTAN 24/26 MG TABLET 1 EACH PO ×2 (07:56→20:48)
[2022-01-24] MEDS: Venlafaxine XR 75 MG Capsule PO (07:56)
[2022-01-24] MEDS: Potassium Chloride Oral Tablet 20 MEQ PO (07:56)
[2022-01-24] MEDS: APIXABAN 5 MG TABLET PO ×2 (07:56→20:49)
[2022-01-24] MEDS: Menthol/Lanolin/Calamine/Znox 113 GM Tube 1 APPLIC TOPICAL ×2 (07:57→20:56)
[2022-01-24] MEDS: Furosemide 40 MG Tablet PO ×2 (07:57→17:53)
[2022-01-24] MEDS: Nystatin Powder 15gm Bottle 1 APPLIC TOPICAL ×2 (07:57→20:57)
[2022-01-24 09:07] VITALS: O2SAT 100
[2022-01-24 11:06] LABS: Bedside Glucose 155 mg/dL (74-106)
[2022-01-24] MEDS: Acetaminophen 325 MG Tablet 650 MG PO (11:30)
[2022-01-24 16:21] LABS: Bedside Glucose 130 mg/dL (74-106)
[2022-01-24 16:40] VITALS: BMI 52.4
--- NOTE | 2022-01-24 18:05 | PCM.PN.BLA ---
Progress Note Afebrile VSS - BP is labile. the systolic is most often >130 and the diastolic is usually less than 80. HR is well controlled and she is currently regular. Maintaining appropriate oxygen saturation on RA while awake and wearing O2 when sleeping. Oral intake is good The blood sugar record was reviewed and the blood sugars are well controlled. Discussed with nursing - no problems that need addressed Reviewed the PT/OT/ST notes Medication list reviewed. All blood sugars are less than 180 and the SSI was discontinued yesterday. BS's are well controlled with diet and Jardiance. Denies abd pain or cramping, N/V, reflux, SARMIENTO, SOB, CP, calf pain. iron panel and Factor XI activity are pending. She is sleeping well. and giving good effort with therapy. She is making progress. ST is using E stim and the facial droop is much better and so is her articulation. She is more aware of what she is eating. She is tolerate Effexor XR with no adverse side effects. She has more modulation to her voice and is more upbeat. Denies palpitations, lightheadedness, CP, bleeding from the nose, gums rectum. No SOB. Her only complaint today is the Left knee pain.....can not tolerate standing for > 2-3 minutes. Alert and making good eye contact. Lungs - CTA HRRR today abd - soft, NT, ND, normal BS's The left knee has crepitance. There is no erythema, no openings in the skin, no significant swelling and no increased warmth to touch. Impressions 1. OA with severe OA in the knees. Has never had her knees injected. I looked at the XRAY of the R knee done a few years ago and she has severe tricompartmental OA. She has not had the left knee XRAY'd at [facility]. Will order an XRAY today and plan on injecting the Left knee tomorrow with Methylprednisolone and Marcaine 2. awaiting the results of the Factor 10 inhibition activity.......if it is low will need to discuss with cardiology and/or hematology what to do? Continue the Eliquis for now. 3. post stroke debility - continue therapy 4. Depression - I suspect long standing. Increase the dose of the Effexor to a more therapeutic dose of 150 mg tomorrow since she is having no adverse SE's. 5. PAF 6. Chronic anticoagulation for AF Visit Charges Inpatient E&M: 96968 Subs Hosp L2
[2022-01-24 18:42] LABS: Ferritin 32 ng/mL (8-252); Iron 75 ug/dL (50-170); Iron Binding Capacity,Total 365 ug/dL (250-450); PERCENT IRON SATURATION 20.5 % (15.0-55.0)
[2022-01-24 18:55] VITALS: BP 136/80; PULSE 62; RESP 18; TEMP 36.1; O2SAT 100
[2022-01-24 20:30] VITALS: PULSE 62; RESP 16; BMI 52.4
--- NOTE | 2022-01-25 01:55 | NURSING ---
Reviewed and agree with LEASES AND LAND SUPERVISOR documentation and assessment charting.
[2022-01-25 06:41] LABS: Bedside Glucose 159 mg/dL (74-106)
[2022-01-25 06:50] VITALS: O2SAT 95
[2022-01-25] MEDS: Arthritis Pain Compound 60 CLICK TUBE TOPICAL ×7 (06:51→21:31)
[2022-01-25 07:57] VITALS: BP 109/47; PULSE 55; RESP 16; TEMP 36.4; O2SAT 99
[2022-01-25] MEDS: Amiodarone 200 MG Tablet PO (08:40)
[2022-01-25] MEDS: Venlafaxine XR 75 MG Capsule PO (08:40)
[2022-01-25] MEDS: Aspirin 81 MG TAB.CHEW PO (08:40)
[2022-01-25] MEDS: SACUBITRIL/VALSARTAN 24/26 MG TABLET 1 EACH PO ×2 (08:40→21:21)
[2022-01-25] MEDS: Carvedilol 6.25 MG Tablet PO ×2 (08:40→21:21)
[2022-01-25] MEDS: Furosemide 40 MG Tablet PO ×2 (08:40→18:51)
[2022-01-25] MEDS: Empagliflozin 25 MG Tablet PO (08:41)
[2022-01-25] MEDS: APIXABAN 5 MG TABLET PO ×2 (08:41→21:22)
[2022-01-25] MEDS: Menthol/Lanolin/Calamine/Znox 113 GM Tube 1 APPLIC TOPICAL ×2 (08:41→21:22)
[2022-01-25] MEDS: Spironolactone 25 MG Tablet PO (08:41)
[2022-01-25] MEDS: Potassium Chloride Oral Tablet 20 MEQ PO (08:41)
[2022-01-25] MEDS: Nystatin Powder 15gm Bottle 1 APPLIC TOPICAL (08:49)
--- NOTE | 2022-01-25 14:10 | RAD_ITS ---
STUDY: X-RAY - LEFT KNEE REASON FOR EXAM: Female, 56 years old. Pain -- hx of severe OA of the R knee TECHNIQUE: 3 view(s) of the knee. COMPARISON: None. FINDINGS: Normal visualized distal femur. Normal visualized proximal tibia and fibula. Normal proximal tibiofibular articulation. There is severe degenerative arthrosis of the medial femorotibial compartment with severe joint space narrowing. Normal lateral femorotibial compartment. There is mild degenerative arthrosis of the patellofemoral articulation. The soft tissue structures are unremarkable. RAD/Knee 3 Views IMPRESSION: Degenerative arthrosis. Electronically Signed: Jonathan Rouse MD at 15:04 EDT ,
[2022-01-25 15:32] VITALS: BMI 52.4
[2022-01-25 16:16] LABS: Bedside Glucose 168 mg/dL (74-106)
--- NOTE | 2022-01-25 19:16 | NURSING ---
[place] collar removed per order of Dr. Guerin's office and soft collar applied at all times. ok to remove for hygiene purposes. Dressing removed. 29 mirna intact with scabbing. no active drainage noted. cleansed with soap and water and ABD applied for pad and protection with paper tape. shower cap used to get excess adhesive and old, dry blood off of pt's head. pt tolerated procedure well. denies pain or discomfort at thsi time. call light within reach, denies further needs.
[2022-01-25 19:23] VITALS: BP 126/72; PULSE 67; RESP 18; TEMP 36.2; O2SAT 96
[2022-01-25 21:15] VITALS: PULSE 67; RESP 18; O2SAT 96; BMI 52.4
--- NOTE | 2022-01-26 02:51 | NURSING ---
Reviewed and agree with POTATO PICKER documentation and assessment charting.
[2022-01-26] MEDS: Arthritis Pain Compound 60 CLICK TUBE TOPICAL ×7 (06:17→19:48)
[2022-01-26 06:40] LABS: Bedside Glucose 149 mg/dL (74-106)
[2022-01-26 07:08] VITALS: BP 108/64; PULSE 58; RESP 16; TEMP 36.7; O2SAT 96
[2022-01-26 07:26] VITALS: O2SAT 95
[2022-01-26] MEDS: Aspirin 81 MG TAB.CHEW PO (08:51)
[2022-01-26] MEDS: Spironolactone 25 MG Tablet PO (08:51)
[2022-01-26] MEDS: Furosemide 40 MG Tablet PO ×2 (08:52→17:31)
[2022-01-26] MEDS: Venlafaxine XR 75 MG Capsule PO (08:52)
[2022-01-26] MEDS: Amiodarone 200 MG Tablet PO (08:52)
[2022-01-26] MEDS: SACUBITRIL/VALSARTAN 24/26 MG TABLET 1 EACH PO ×2 (08:52→19:46)
[2022-01-26] MEDS: Empagliflozin 25 MG Tablet PO (08:52)
[2022-01-26] MEDS: APIXABAN 5 MG TABLET PO ×2 (08:52→19:46)
[2022-01-26] MEDS: Potassium Chloride Oral Tablet 20 MEQ PO (08:52)
[2022-01-26] MEDS: Carvedilol 6.25 MG Tablet PO ×2 (08:59→19:46)
[2022-01-26] MEDS: Nystatin Powder 15gm Bottle 1 APPLIC TOPICAL ×2 (09:00→19:45)
[2022-01-26] MEDS: Menthol/Lanolin/Calamine/Znox 113 GM Tube 1 APPLIC TOPICAL ×2 (09:00→19:47)
[2022-01-26 16:34] VITALS: BMI 52.4
[2022-01-26 17:01] LABS: Bedside Glucose 160 mg/dL (74-106)
[2022-01-26] MEDS: MethylPREDNISolone Acetate 80 MG/ML Vial IM (17:24)
[2022-01-26] MEDS: Bupivacaine 0.5% PF 10 ML VIAL INFILT (17:27)
--- NOTE | 2022-01-26 17:33 | PCM.PN.BLA ---
Progress Note Afebrile VSS-blood pressure is within goal. Heart rate ranges from 55-67. She denies lightheadedness. Maintaining appropriate oxygen saturation on RA Oral intake is good Discussed with nursing - no problems that need addressed Reviewed the PT/OT/ST notes-she is making good progress Medication list reviewed. Blood sugars are well controlled. Her only complain today is Left knee pain. The XRAY shows severe narrowing of the medial compartment. The lateral compartment if unremarkable. No fractures or dislocations. No open wounds on the knee. No erythema or increased warmth of the L knee. The risks and complications of the steroid injection were Mylene including the risk of accelerating loss of cartilage and she would like to proceed with the injection. It is my hope that with treating her depression she will be more motivated to take care of herself and lose weight. I think having a stroke has been a wake up call. The left knee was cleaned in the usual manner. We used a frontal/midline approach. Hurricaine spray was used to topically anesthetize the skin. The knee was entered with a 20-gauge 1 and 1/2 inch needle. The knee was aspirated with no return. An injection was then performed using 80 mg of Depo-Medrol with Marcaine. There were no complications. Normal postop instructions were given. I re-examined 10 minutes after the injection and she told me the pain in her left knee was better. Will measure the knee circumference tomorrow and see if we are able to order an appropriately sized knee brace. Impression 1. Severe OA of both knees with increased strain on the left knee now due to the R side weakness from the recent CVA. 2. CVA while on Xarelto......she was transitioned to Eliquis at the previous hospital. Factor XI activity is pending. 3. Diabetes mellitus type 4-[id number] on Jardiance and an 1800-calorie carbohydrate consistent diet. 4. Morbid obesity-class III 5. Depression-we will increase the Xarelto to 150 mg every morning. 6. I recommended the [facility] program at [facility] for her post DC. IF she goes to an SNF the diets are generally loaded with carbs.......will continue with teaching while she is in rehab. Procedures Hospitalists Procedures: Other Procedure - See Report (therapeutic L knee injection with 80 mg of methylprednisolone and Marcaine.)
--- NOTE | 2022-01-26 18:08 | CASEMGMT ---
Social Work Updated pt about [facility] able to accept pt but would only be able to receive part B therapies. Recommended choosing facility in-network with insurance. Pt agreed and requested referral to [facility]. NRD 01/31. Spencer CARDONA emailed documents to complete by pt/sister. Provided to pt. Referred to [facility]. They can accept. SW to continue to follow. Luz Albrecht, TRUCKING CONTRACTOR WEATHER FORCASTER
[2022-01-26 19:29] VITALS: BP 148/64; PULSE 68; RESP 16; TEMP 36.4; O2SAT 96
[2022-01-26] MEDS: Senna/Docusate Sodium 1 Tablet 2 TABLET PO (19:45)
[2022-01-27] MEDS: Arthritis Pain Compound 60 CLICK TUBE TOPICAL ×7 (04:58→22:28)
[2022-01-27 06:45] LABS: Bedside Glucose 193 mg/dL (74-106)
[2022-01-27 06:55] VITALS: O2SAT 92
[2022-01-27 07:39] VITALS: BP 106/58; PULSE 63; RESP 16; TEMP 36.6; O2SAT 95
[2022-01-27] MEDS: Empagliflozin 25 MG Tablet PO (09:09)
[2022-01-27] MEDS: Spironolactone 25 MG Tablet PO (09:09)
[2022-01-27] MEDS: APIXABAN 5 MG TABLET PO ×2 (09:09→22:31)
[2022-01-27] MEDS: Aspirin 81 MG TAB.CHEW PO (09:09)
[2022-01-27] MEDS: Furosemide 40 MG Tablet PO ×2 (09:09→17:28)
[2022-01-27] MEDS: Senna/Docusate Sodium 1 Tablet 2 TABLET PO ×2 (09:09→22:31)
[2022-01-27] MEDS: SACUBITRIL/VALSARTAN 24/26 MG TABLET 1 EACH PO ×2 (09:09→22:31)
[2022-01-27] MEDS: Potassium Chloride Oral Tablet 20 MEQ PO (09:09)
[2022-01-27] MEDS: Venlafaxine XR 150 MG Capsule PO (09:10)
[2022-01-27] MEDS: Carvedilol 6.25 MG Tablet PO ×2 (09:10→22:31)
[2022-01-27] MEDS: Amiodarone 200 MG Tablet PO (09:10)
[2022-01-27] MEDS: Nystatin Powder 15gm Bottle 1 APPLIC TOPICAL ×2 (09:17→22:29)
[2022-01-27] MEDS: Menthol/Lanolin/Calamine/Znox 113 GM Tube 1 APPLIC TOPICAL ×2 (09:18→22:29)
--- NOTE | 2022-01-27 11:23 | PN_ITS ---
Progress Note AF BP is lower in the AM but goes up as the day progresses but has been within goal for the past few days Mylene tells me that her Left knee is still painful today but, it is much better than it had been since it was injected yesterday. FBS is higher than it has been today but, it is still less than 200......this may be related to the steroid injection. Mylene denies chest pain, shortness of breath at rest, palpitations, lightheadedness, dysuria, nausea/vomiting, abdominal pain, calf pain. Physical Exam Const alert, oriented x3 and no apparent distress General Appearance: cooperative and comfortable Resp clear to auscultation bilaterally Cardio regular rate, regular rhythm and no gallops GI normal to inspection, nondistended, normoactive bowel sounds and soft to palpation GI Narrative: No guarding with palpation Extremity no calf tenderness Extremity Narrative: Minimal ankle edema, left greater than right Skin General Skin Exam: no breakdown Rashes: no rashes Assessment & Plan Assessment/Plan (1) Chronic anticoagulation: (2) Embolic cerebral infarction: (3) Depression: QUALIFIERS: Depression Type: reactive depression Qualified Code(s): F32.9 - Major depressive disorder, single episode, unspecified (4) Diabetes mellitus, type 2: QUALIFIERS: Diabetes mellitus penitentiary insulin use: without terminal operations supervisor use Diabetes mellitus complication status: with circulatory complication Diabetes mellitus complication detail: with other circulatory complications Qualified Code(s): E11.59 - Type 2 diabetes mellitus with other circulatory complications (5) Osteoarthritis: PLAN: 1. Continue therapy 2. Measure the Left knee and obtain an appropriate brace. 3. May benefit from Synvisc or similar injection going forward. 4. Await the results of the Factor XI activity - if it is low will need to discuss with cardiology......may need to transition to Warfarin. 5. Needs a sleep study post discharge. For now will continue with the supplemental O2 at night. Visit Charges Inpatient E&M: 92016 Subs Hosp L2
[2022-01-27 13:44] LABS: Factor XI Activity 140 % (60-150)
[2022-01-27 15:56] LABS: Bedside Glucose 251 mg/dL (74-106)
[2022-01-27 16:34] VITALS: BMI 52.4
[2022-01-27 21:43] VITALS: BP 147/91; PULSE 84; RESP 18; TEMP 36.8; O2SAT 96
[2022-01-27 22:27] VITALS: BP 151/85; PULSE 68; RESP 16; TEMP 36.6; O2SAT 97
[2022-01-28 04:13] VITALS: BMI 52.4
[2022-01-28] MEDS: Arthritis Pain Compound 60 CLICK TUBE TOPICAL ×7 (06:47→21:01)
[2022-01-28 07:01] LABS: Bedside Glucose 176 mg/dL (74-106)
--- NOTE | 2022-01-28 07:09 | NURSING ---
From 10p to 6a patient wore he oxygen all night
[2022-01-28 07:50] VITALS: BP 159/81; PULSE 57; RESP 18; TEMP 36.6; O2SAT 96
[2022-01-28] MEDS: Venlafaxine XR 150 MG Capsule PO (09:02)
[2022-01-28] MEDS: Amiodarone 200 MG Tablet PO (09:02)
[2022-01-28] MEDS: Spironolactone 25 MG Tablet PO (09:02)
[2022-01-28] MEDS: Aspirin 81 MG TAB.CHEW PO (09:02)
[2022-01-28] MEDS: Carvedilol 6.25 MG Tablet PO ×2 (09:02→21:03)
[2022-01-28] MEDS: Furosemide 40 MG Tablet PO ×2 (09:02→17:17)
[2022-01-28] MEDS: Potassium Chloride Oral Tablet 20 MEQ PO (09:02)
[2022-01-28] MEDS: SACUBITRIL/VALSARTAN 24/26 MG TABLET 1 EACH PO ×2 (09:14→21:03)
[2022-01-28] MEDS: Empagliflozin 25 MG Tablet PO (09:14)
[2022-01-28] MEDS: APIXABAN 5 MG TABLET PO ×2 (09:15→21:03)
[2022-01-28] MEDS: Nystatin Powder 15gm Bottle 1 APPLIC TOPICAL ×2 (09:24→21:04)
[2022-01-28] MEDS: Menthol/Lanolin/Calamine/Znox 113 GM Tube 1 APPLIC TOPICAL ×2 (09:24→21:03)
[2022-01-28 14:19] VITALS: BMI 52.4
[2022-01-28 16:16] LABS: Bedside Glucose 198 mg/dL (74-106)
[2022-01-28] MEDS: metFORMIN HCl 500 MG Tablet PO (17:17)
[2022-01-28 19:26] VITALS: BP 163/80; PULSE 80; RESP 18; TEMP 36.2; O2SAT 96
[2022-01-28 21:21] LABS: Bedside Glucose 163 mg/dL (74-106)
[2022-01-29 01:43] VITALS: BMI 52.4
--- NOTE | 2022-01-29 02:16 | NURSING ---
O2 at 2 LPM via [facility] put on at 2100. Pt has kept O2 on all night so far. Will continue to monitor.
--- NOTE | 2022-01-29 02:28 | NURSING ---
REVIEWED AND AGREE WITH BIOPSYCHOLOGIST'S FUNCTIONAL ASSESSMENT AND HANDOFF CHARTING.
[2022-01-29] MEDS: Nystatin Powder 15gm Bottle 1 APPLIC TOPICAL ×2 (05:23→21:06)
[2022-01-29] MEDS: Menthol/Lanolin/Calamine/Znox 113 GM Tube 1 APPLIC TOPICAL ×2 (05:23→21:06)
[2022-01-29] MEDS: Arthritis Pain Compound 60 CLICK TUBE TOPICAL ×6 (05:24→21:05)
--- NOTE | 2022-01-29 05:53 | NURSING ---
Pt wore O2 all night while sleeping. Pt up at 0545 for AM care. Pt awake and requesting to be done with O2 at this time.
[2022-01-29 07:56] LABS: Bedside Glucose 161 mg/dL (74-106)
[2022-01-29 08:08] VITALS: BP 133/65; PULSE 56; RESP 17; TEMP 36.1; O2SAT 98
[2022-01-29] MEDS: Spironolactone 25 MG Tablet PO (08:18)
[2022-01-29] MEDS: SACUBITRIL/VALSARTAN 24/26 MG TABLET 1 EACH PO ×2 (08:18→21:06)
[2022-01-29] MEDS: Empagliflozin 25 MG Tablet PO (08:18)
[2022-01-29] MEDS: Venlafaxine XR 150 MG Capsule PO (08:18)
[2022-01-29] MEDS: Furosemide 40 MG Tablet PO ×2 (08:18→18:14)
[2022-01-29] MEDS: Potassium Chloride Oral Tablet 20 MEQ PO (08:18)
[2022-01-29] MEDS: Amiodarone 200 MG Tablet PO (08:19)
[2022-01-29] MEDS: Aspirin 81 MG TAB.CHEW PO (08:22)
[2022-01-29] MEDS: APIXABAN 5 MG TABLET PO ×2 (08:23→21:06)
[2022-01-29] MEDS: metFORMIN HCl 500 MG Tablet PO ×2 (08:23→18:14)
[2022-01-29] MEDS: Carvedilol 6.25 MG Tablet PO ×2 (08:23→21:06)
[2022-01-29 11:15] VITALS: BMI 52.4
[2022-01-29 11:15] LABS: Bedside Glucose 165 mg/dL (74-106)
[2022-01-29 16:25] LABS: Bedside Glucose 167 mg/dL (74-106)
[2022-01-29 19:32] VITALS: BP 143/91; PULSE 67; RESP 17; TEMP 36.7; O2SAT 98
[2022-01-29 22:26] LABS: Bedside Glucose 152 mg/dL (74-106)
[2022-01-30 01:20] VITALS: BMI 52.4
[2022-01-30] MEDS: Menthol/Lanolin/Calamine/Znox 113 GM Tube 1 APPLIC TOPICAL ×2 (05:26→21:52)
[2022-01-30] MEDS: Nystatin Powder 15gm Bottle 1 APPLIC TOPICAL ×2 (05:27→21:51)
[2022-01-30 06:29] LABS: Anion Gap 5 (5-15); BUN 33 mg/dL (7-18); BUN/Creat Ratio 34.8 RATIO (10-20); Calcium,Total 8.9 mg/dL (8.5-10.1); Chloride 103 mmol/L (98-107); Creatinine, Serum 0.95 mg/dL (0.55-1.02); EST Glomerular Filtration Rate 65 mL/min (>60); Est Glom Filt Rate - Afr Amer 79 mL/min (>60); Estimated Creatinine Clearance 60.92 ml/min; Glucose 162 mg/dL (74-106); Potassium 3.6 mmol/L (3.5-5.1); Sodium Level 139 mmol/L (136-145)
[2022-01-30 07:11] LABS: Bedside Glucose 167 mg/dL (74-106)
--- NOTE | 2022-01-30 07:22 | NURSING ---
Pt wore O2 via [facility] at 2 LPM all night while sleeping from 2200- 0530.
[2022-01-30 08:27] VITALS: BP 112/62; PULSE 55; RESP 20; TEMP 36; O2SAT 100
[2022-01-30] MEDS: Arthritis Pain Compound 60 CLICK TUBE TOPICAL ×6 (09:08→21:52)
[2022-01-30] MEDS: Potassium Chloride Oral Tablet 20 MEQ PO (09:10)
[2022-01-30] MEDS: Furosemide 40 MG Tablet PO ×2 (09:10→17:14)
[2022-01-30] MEDS: Venlafaxine XR 150 MG Capsule PO (09:10)
[2022-01-30] MEDS: Spironolactone 25 MG Tablet PO (09:11)
[2022-01-30] MEDS: Carvedilol 6.25 MG Tablet PO ×2 (09:11→21:52)
[2022-01-30] MEDS: Empagliflozin 25 MG Tablet PO (09:11)
[2022-01-30] MEDS: Aspirin 81 MG TAB.CHEW PO (09:11)
[2022-01-30] MEDS: metFORMIN HCl 500 MG Tablet PO ×2 (09:11→17:14)
[2022-01-30] MEDS: Amiodarone 200 MG Tablet PO (09:11)
[2022-01-30] MEDS: APIXABAN 5 MG TABLET PO ×2 (09:11→21:51)
[2022-01-30] MEDS: SACUBITRIL/VALSARTAN 24/26 MG TABLET 1 EACH PO ×2 (09:11→21:52)
[2022-01-30 11:21] LABS: Bedside Glucose 162 mg/dL (74-106)
--- NOTE | 2022-01-30 11:26 | PN_ITS ---
Subjective Subjective Mylene was seen on team rounds today. No family was available to participate. Afebrile VSS Maintaining appropriate oxygen saturation on RA Oral intake is good for food and not so good for fluid intake. She is still incontinent of urine. Good bowel function Discussed with nursing - no problems that need addressed Reviewed the PT/OT/ST notes Medication list reviewed. Weight is down about 7 lbs since admission......she need to be weighed in the WC for the best consistency. Weight at admission was reported by the pt as 315 but, when she was weighed the following day by nursing the weight was 328. she is 3 21 today. Blood sugar record was reviewed. Blood sugars are all less than 200 with the addition of Metformin to her drug regimen. All lab was personally reviewed. Sodium is 139 today and the potassium is 3.6. Serum bicarb is normal at 31. The BUN is 33 with a creatinine of 0.95 and a BUN/creatinine ratio of 34.8. She is tolerating the increase in the dose of the Effexor XR. She thinks her mood is improving. She is no longer tearful and she is looking forward and is more encouraged about her ability to recover from this stroke and to get back home. She tells me that the left knee pain is better. The left knee was measured by PT and she got a left knee brace to support the knee and she is happy with the fit and tells me that her knee feels more stable now. She tells me that she is sleeping well. She denies chest pain, shortness of breath, cough, sore throat, lightheadedness, dysuria. She tells me that she has worn her sister's CPAP in the past and admits she felt much better on the mornings after she wore the CPAP. She has never had a formal sleep study. We are curren tly applying oxygen at night. Objective Data Objective Data Vital Signs: Vital Signs Temp Pulse Resp BP Pulse Ox 96.8 F L 55 L 20 H 112/62 100 01/30/22 08:27 01/30/22 08:27 01/30/22 08:27 01/30/22 08:27 01/30/22 08:27 Oxygen Flow Rate (L/min) 2 Oxygen Delivery Method Nasal Cannula Weight: 321 lb 10.471 oz Body Mass Index (BMI) 52.4 Intake & Output: Intake and Output for Last 24 Hours 01/28/22 01/29/22 01/30/22 23:59 23:59 23:59 Intake Total 840 / 840 840 / 840 300 / 300 Balance 840 / 840 840 / 840 300 / 300 Lab / Micro Data Result Diagrams: 01/18/22 05:36 01/30/22 05:39 Labs: Laboratory Results - last 24 hr 01/29/22 16:23: POC Glucose 167 H 01/29/22 21:53: POC Glucose 152 H 01/30/22 05:39: Sodium 139, Potassium 3.6, Chloride 103, Carbon Dioxide 31.0, Anion Gap 5, BUN 33 H, Creatinine 0.95, Estim Creat Clear Calc 60.92, Est GFR (MDRD) Af Amer 79, Est GFR (MDRD) Non-Af 65, BUN/Creatinine Ratio 34.8 H, Glucose 162 H, Calcium 8.9 01/30/22 06:49: POC Glucose 167 H 01/30/22 11:18: POC Glucose 162 H Physical Exam Const alert, oriented x3 and no apparent distress Constitutional Narrative: Sitting in the recliner at the bedside. She has good color in her face today and she is smiling and making good eye contact with the team members. Everyone had a good report for her and she is making good progress. She is also doing exercises in her room when she is not doing therapy. Her sister and family visited last night and she has pictures of family in the room now. General Appearance: cooperative and other very motivated to get better. Eyes PERRL, EOMs intact bilaterally, conjunctivae normal and no scleral icterus Eyes Narrative: less facial droop Resp clear to auscultation bilaterally Cardio regular rate, regular rhythm and no gallops Cardio Narrative: no ectopy GI normal to inspection, nondistended, normoactive bowel sounds, soft to palpation and non-tender GI Narrative: no guarding with palpation. She has lost 7 lbs. Extremity no calf tenderness Extremity Narrative: The edema in the distal legs is nearly gone. CORI hose are in place. Skin General Skin Exam: no breakdown Rashes: no rashes Neuro Neuro Narrative: no movement in the RUE yet. The strength in the RLE is improving and she may be able to try a HW soon. Nursing is getting her to stand and pivot in to the chair at min assist of 2 using a HW now. she ambulated 20 ft on the Wall rail today with WC follow and the PT advancing her R foot........they hope to start using a HW soon. She is able to roll onto her L side at SBA now but, still requiring some help to roll to the left yet. She was able to do 5 stands in 30 seconds with minimal assistance of 1 by pulling up from the left wall rail today. Minimal dysarthria now. Assessment & Plan Assessment/Plan (1) Chronic systolic CHF (congestive heart failure): (2) Tachycardia induced cardiomyopathy: (3) Facial droop due to stroke: (4) Right hemiparesis: (5) Dysarthria: (6) Physical debility: (7) Chronic anticoagulation: (8) Embolic cerebral infarction: (9) Diabetes mellitus, type 2: QUALIFIERS: Diabetes mellitus senior living insulin use: without senior living use Diabetes mellitus complication status: with circulatory complication Diabetes mellitus complication detail: with other circulatory complications Qualified Code(s): E11.59 - Type 2 diabetes mellitus with other circulatory complications (10) Sleep disorder breathing: (11) Depression: QUALIFIERS: Depression Type: reactive depression Qualified Code(s): F32.9 - Major depressive disorder, single episode, unspecified PLAN: 1. DM II is well controlled with the addition of the Glucophage to the Jardiance. 2. Mood us improving with the Effexor. 3. the Factor XI activity is within the therapeutic window at 140%. 4. Progressing well in therapy and she is very motivated to get better. 5. Severe OA in the BL knees. The left knee is much less painful after the injection. Goal is to continue to lose wt so that she can get TKA in the future. 6. Continue therapy. No changes needed to the drug regimen at this time. Charges/Coding Visit Charges Inpatient E&M: 75761 Subs Hosp L2
--- NOTE | 2022-01-30 15:54 | CASEMGMT ---
Social Work IDT met with patient for Team meeting. Discussed patient's progress in PT/OT/ST and nursing. Pt making progress. Explained [employer] insurance NRD 01/31 and continued stay is not guaranteed. The goal is for pt to continue working with this intensive therapy for best outcome of regaining prior level of independence. If pt is unable to return home alone, pt will be transferring to [facility]. SW to continue to follow. Luz Albrecht, NITROGLYCERIN NEUTRALIZER ASSESSMENT TECHNICIAN
[2022-01-30 16:10] LABS: Bedside Glucose 166 mg/dL (74-106)
[2022-01-30 16:21] VITALS: BMI 52.4
[2022-01-30 19:40] VITALS: PULSE 64; RESP 16; O2SAT 98
[2022-01-30 19:48] VITALS: BP 149/92; PULSE 76; RESP 18; TEMP 36.8; O2SAT 97
[2022-01-30] MEDS: Senna/Docusate Sodium 1 Tablet 2 TABLET PO (21:52)
[2022-01-30 22:16] LABS: Bedside Glucose 156 mg/dL (74-106)
[2022-01-31 00:10] VITALS: PULSE 60; RESP 14; O2SAT 97
[2022-01-31 04:02] VITALS: BMI 52.4
[2022-01-31 04:28] VITALS: PULSE 61; RESP 14; O2SAT 97
[2022-01-31] MEDS: Arthritis Pain Compound 60 CLICK TUBE TOPICAL ×7 (05:39→21:51)
[2022-01-31] MEDS: Nystatin Powder 15gm Bottle 1 APPLIC TOPICAL ×2 (05:40→21:49)
[2022-01-31] MEDS: Menthol/Lanolin/Calamine/Znox 113 GM Tube 1 APPLIC TOPICAL ×2 (05:40→21:49)
--- NOTE | 2022-01-31 05:51 | NURSING ---
Patient wore Cpap thru the night, wore from [id number] without issue.
[2022-01-31 07:31] LABS: Bedside Glucose 156 mg/dL (74-106)
[2022-01-31 07:51] VITALS: BP 142/79; PULSE 58; RESP 16; TEMP 35.8; O2SAT 98
[2022-01-31] MEDS: Aspirin 81 MG TAB.CHEW PO (08:16)
[2022-01-31] MEDS: APIXABAN 5 MG TABLET PO ×2 (08:17→21:49)
[2022-01-31] MEDS: Empagliflozin 25 MG Tablet PO (08:17)
[2022-01-31] MEDS: SACUBITRIL/VALSARTAN 24/26 MG TABLET 1 EACH PO ×2 (08:17→21:49)
[2022-01-31] MEDS: Furosemide 40 MG Tablet PO ×2 (08:17→17:26)
[2022-01-31] MEDS: metFORMIN HCl 500 MG Tablet PO ×2 (08:17→17:26)
[2022-01-31] MEDS: Spironolactone 25 MG Tablet PO (08:17)
[2022-01-31] MEDS: Venlafaxine XR 150 MG Capsule PO (08:17)
[2022-01-31] MEDS: Potassium Chloride Oral Tablet 20 MEQ PO (08:17)
[2022-01-31] MEDS: Amiodarone 200 MG Tablet PO (08:17)
[2022-01-31] MEDS: Carvedilol 6.25 MG Tablet PO ×2 (08:35→21:48)
[2022-01-31 11:50] LABS: Bedside Glucose 150 mg/dL (74-106)
--- NOTE | 2022-01-31 13:35 | PCM.PROGNOTE ---
Subjective Subjective Afebrile VSS-blood pressures are consistently above goal except for 7 AM in the morning when it is well controlled. Heart rate is also lower in the morning. Today the heart rate was 58. She is on carvedilol 6.25 mg twice daily and is also on Entresto which contains valsartan. Maintaining appropriate oxygen saturation on RA Oral intake is good Discussed with nursing - no problems that need addressed Reviewed the PT/OT/ST notes Medication list reviewed. The blood sugar record was reviewed and the blood sugar is well controlled. No hypoglycemia. Potassium yesterday was 3.6 and she is on an ARB, potassium 20 mEq daily and Spironolactone. Would prefer the Potassium was 4 or better. She wore the CPAP at 12cm all night last night and she had no complaints.....did not really feel any different this AM. Will continue for a few nights. Plan a formal sleep study at [facility]. Denies palpitations, chest pain, SOB, cough, dysuria, lightheadedness. Alert, oriented x3, no apparent distress, pleasant and smiling. Lungs - CTA, diminished in the bases. Not tachypneic and she has no conversational dyspnea. HRRR trace ankle edema, ANDRES wraps in place SBD - soft NT ND with normal BS's Impression 1. HTN - not at goal. Add Norvasc 2.5 mg daily 2. Potassium is borderline low - would like to see it at least 4 with her hx of CM and AF. Will increase the Potassium to 20 in the AM and 10 in the PM and recheck a potassium in a few days 3. Continue the CPAP at and order a overnight sleep study at [facility]. 4. Continue the Effexor 5. Continue therapy - she is making good progress and works hard. Objective Data Objective Data Vital Signs: Vital Signs Temp Pulse Resp BP Pulse Ox 96.5 F L 58 L 16 142/79 H 98 01/31/22 07:51 01/31/22 07:51 01/31/22 07:51 01/31/22 07:51 01/31/22 07:51 Oxygen Flow Rate (L/min) 2 Oxygen Delivery Method Room Air Weight: 321 lb 10.471 oz Body Mass Index (BMI) 52.4 Intake & Output: Intake and Output for Last 24 Hours 01/29/22 01/30/22 01/31/22 23:59 23:59 23:59 Intake Total 840 / 840 1280 / 1280 Balance 840 / 840 1280 / 1280 Lab / Micro Data Result Diagrams: 01/18/22 05:36 01/30/22 05:39 Labs: Laboratory Results - last 24 hr 01/30/22 16:06: POC Glucose 166 H 01/30/22 22:06: POC Glucose 156 H 01/31/22 07:26: POC Glucose 156 H 01/31/22 11:40: POC Glucose 150 H Charges/Coding Visit Charges Inpatient E&M: 52485 Subs Hosp L2
[2022-01-31] MEDS: amLODIPine 2.5 MG Tablet PO (15:29)
[2022-01-31 16:54] VITALS: BMI 52.4
[2022-01-31 16:55] LABS: Bedside Glucose 168 mg/dL (74-106)
[2022-01-31 19:39] VITALS: BP 137/69; PULSE 77; RESP 16; TEMP 36.3; O2SAT 96
[2022-01-31 21:15] VITALS: PULSE 77; RESP 16; O2SAT 96
[2022-01-31 21:25] VITALS: BMI 52.4
[2022-01-31] MEDS: Senna/Docusate Sodium 1 Tablet 2 TABLET PO (21:48)
[2022-01-31] MEDS: Potassium Chloride Oral Tablet 10 MEQ PO (21:50)
[2022-01-31 22:10] LABS: Bedside Glucose 145 mg/dL (74-106)
[2022-02-01 00:05] VITALS: PULSE 62; RESP 16; O2SAT 97
--- NOTE | 2022-02-01 02:26 | NURSING ---
REVIEWED AND AGREE WITH LIBRARIAN DOCUMENTATION AND ASSESSMENT CHARTING.
[2022-02-01] MEDS: Nystatin Powder 15gm Bottle 1 APPLIC TOPICAL ×2 (05:31→19:52)
[2022-02-01] MEDS: Menthol/Lanolin/Calamine/Znox 113 GM Tube 1 APPLIC TOPICAL ×2 (05:31→20:07)
[2022-02-01] MEDS: Arthritis Pain Compound 60 CLICK TUBE TOPICAL ×7 (05:32→19:55)
[2022-02-01 06:25] LABS: Bedside Glucose 141 mg/dL (74-106)
[2022-02-01 07:11] VITALS: O2SAT 91
[2022-02-01 07:47] VITALS: BP 139/65; PULSE 60; RESP 16; TEMP 36.1; O2SAT 98
[2022-02-01] MEDS: Spironolactone 25 MG Tablet PO (08:20)
[2022-02-01] MEDS: Aspirin 81 MG TAB.CHEW PO (08:20)
[2022-02-01] MEDS: metFORMIN HCl 500 MG Tablet PO ×2 (08:20→17:41)
[2022-02-01] MEDS: Amiodarone 200 MG Tablet PO (08:21)
[2022-02-01] MEDS: Empagliflozin 25 MG Tablet PO (08:22)
[2022-02-01] MEDS: amLODIPine 2.5 MG Tablet PO (08:22)
[2022-02-01] MEDS: Senna/Docusate Sodium 1 Tablet 2 TABLET PO ×2 (08:22→19:54)
[2022-02-01] MEDS: APIXABAN 5 MG TABLET PO ×2 (08:22→19:54)
[2022-02-01] MEDS: SACUBITRIL/VALSARTAN 24/26 MG TABLET 1 EACH PO ×2 (08:22→19:54)
[2022-02-01] MEDS: Carvedilol 6.25 MG Tablet PO ×2 (08:22→19:56)
[2022-02-01] MEDS: Venlafaxine XR 150 MG Capsule PO (08:22)
[2022-02-01] MEDS: Furosemide 40 MG Tablet PO ×2 (08:22→17:41)
[2022-02-01] MEDS: Potassium Chloride Oral Tablet 20 MEQ PO (08:23)
[2022-02-01 12:01] LABS: Bedside Glucose 145 mg/dL (74-106)
[2022-02-01 16:41] LABS: Bedside Glucose 152 mg/dL (74-106)
[2022-02-01 17:00] VITALS: BMI 52.4
[2022-02-01 19:35] VITALS: BP 148/90; PULSE 77; RESP 16; TEMP 36.6; O2SAT 99; BMI 52.4
[2022-02-01] MEDS: Potassium Chloride Oral Tablet 10 MEQ PO (19:54)
[2022-02-01] MEDS: Calcium Carbonate 500 MG Tablet PO (20:57)
[2022-02-01 21:01] LABS: Bedside Glucose 153 mg/dL (74-106)
[2022-02-01 22:05] VITALS: PULSE 63; RESP 13; O2SAT 98
[2022-02-02] MEDS: Menthol/Lanolin/Calamine/Znox 113 GM Tube 1 APPLIC TOPICAL ×2 (07:12→20:16)
[2022-02-02] MEDS: Nystatin Powder 15gm Bottle 1 APPLIC TOPICAL ×2 (07:13→20:16)
[2022-02-02] MEDS: Arthritis Pain Compound 60 CLICK TUBE TOPICAL ×7 (07:13→20:17)
[2022-02-02 07:20] LABS: Bedside Glucose 168 mg/dL (74-106)
--- NOTE | 2022-02-02 07:24 | NURSING ---
REVIEWED AND AGREE WITH ELECTRICAL ENGINEERING TECHNICIAN'S FUNCTIONAL ASSESSMENT AND HANDOFF CHARTING.
[2022-02-02 08:04] VITALS: BP 134/77; PULSE 57; RESP 16; TEMP 36.6; O2SAT 99
[2022-02-02] MEDS: metFORMIN HCl 500 MG Tablet PO ×2 (08:11→18:01)
[2022-02-02] MEDS: Aspirin 81 MG TAB.CHEW PO (08:11)
[2022-02-02] MEDS: Carvedilol 6.25 MG Tablet PO ×2 (08:12→20:16)
[2022-02-02] MEDS: APIXABAN 5 MG TABLET PO ×2 (08:12→20:15)
[2022-02-02] MEDS: Senna/Docusate Sodium 1 Tablet 2 TABLET PO ×2 (08:12→20:15)
[2022-02-02] MEDS: SACUBITRIL/VALSARTAN 24/26 MG TABLET 1 EACH PO ×2 (08:12→20:15)
[2022-02-02] MEDS: Venlafaxine XR 150 MG Capsule PO (08:12)
[2022-02-02] MEDS: Furosemide 40 MG Tablet PO ×2 (08:12→18:01)
[2022-02-02] MEDS: amLODIPine 2.5 MG Tablet PO (08:12)
[2022-02-02] MEDS: Potassium Chloride Oral Tablet 20 MEQ PO (08:12)
[2022-02-02] MEDS: Spironolactone 25 MG Tablet PO (08:12)
[2022-02-02] MEDS: Amiodarone 200 MG Tablet PO (08:12)
[2022-02-02] MEDS: Empagliflozin 25 MG Tablet PO (08:13)
[2022-02-02 11:45] LABS: Bedside Glucose 168 mg/dL (74-106)
--- NOTE | 2022-02-02 12:10 | PCM.PROGNOTE ---
Subjective Subjective Afebrile VSS-blood pressure is adequately controlled Maintaining appropriate oxygen saturation on RA Oral intake is good Will get weighed on Mondays Discussed with nursing - no problems that need addressed Reviewed the PT/OT/ST notes Medication list reviewed. The blood sugar record was reviewed and all blood sugars are well controlled and under 180 now. Will change the accuchecks to BID, before breakfast and before supper she denies shortness of breath, chest pain, dysuria, nausea/vomiting/abdominal pain, lightheadedness, calf pain. She tells me that her legs and ankles swell significantly when she is at home. She has minimal edema now due to the fact that her legs are compressed with the Toni wraps. We discussed the possible complications of chronic edema of the LE's including stasis dermatitis and diabetic ulcers. We also discussed the importance of good foot wear and not walking in bare feet, even in her house. She is sleeping well and she is watching what she is ordering for meals and is committed to losing weight. Left knee pain is tolerable after knee injection and use of the brace. Alert and oriented X3, NAD, talkative and making good eye contact. Lungs are CTA HRRR trace ankles edema and the TONI wraps are in place skin - no rashes and no breakdown. Impressions 1. Post stroke debility - Continue therapy. she is making progress and she is working very hard. She is even doing additional exercise in her room and she has completed therapy for the day. 2. R side hemiparesis 3. facial droop and dysarthria are much improved Not ready for DC yet. Objective Data Objective Data Vital Signs: Vital Signs Temp Pulse Resp BP Pulse Ox 97.8 F 57 L 16 134/77 H 99 02/02/22 08:04 02/02/22 08:04 02/02/22 08:04 02/02/22 08:04 02/02/22 08:04 Oxygen Flow Rate (L/min) 2 Oxygen Delivery Method Room Air Weight: 321 lb 10.471 oz Body Mass Index (BMI) 52.4 Lab / Micro Data Result Diagrams: 01/18/22 05:36 01/30/22 05:39 Labs: Laboratory Results - last 24 hr 02/01/22 16:30: POC Glucose 152 H 02/01/22 20:05: POC Glucose 153 H 02/02/22 06:47: POC Glucose 168 H 02/02/22 11:37: POC Glucose 168 H Charges/Coding Visit Charges Inpatient E&M: 19773 Subs Hosp L2
[2022-02-02 17:00] VITALS: BMI 52.4
[2022-02-02 19:30] VITALS: PULSE 73; RESP 16; O2SAT 98; BMI 52.4
[2022-02-02] MEDS: Potassium Chloride Oral Tablet 10 MEQ PO (20:16)
[2022-02-02 20:59] VITALS: BP 134/81; PULSE 73; RESP 16; TEMP 36.4; O2SAT 98
[2022-02-02 22:12] VITALS: PULSE 64; RESP 17; O2SAT 96
--- NOTE | 2022-02-03 01:04 | NURSING ---
Reviewed and agree with WATER PURIFIER assessment.
[2022-02-03] MEDS: Arthritis Pain Compound 60 CLICK TUBE TOPICAL ×7 (05:38→20:53)
[2022-02-03] MEDS: Menthol/Lanolin/Calamine/Znox 113 GM Tube 1 APPLIC TOPICAL ×2 (05:39→20:48)
[2022-02-03] MEDS: Nystatin Powder 15gm Bottle 1 APPLIC TOPICAL ×2 (05:39→20:54)
[2022-02-03 06:00] VITALS: BP 151/66; PULSE 56; RESP 16; TEMP 35.8; O2SAT 97
[2022-02-03 06:36] LABS: Bedside Glucose 142 mg/dL (74-106)
[2022-02-03 07:00] VITALS: O2SAT 93
[2022-02-03 08:35] VITALS: BP 132/72; PULSE 62
[2022-02-03] MEDS: Amiodarone 200 MG Tablet PO (08:37)
[2022-02-03] MEDS: Venlafaxine XR 150 MG Capsule PO (08:37)
[2022-02-03] MEDS: Spironolactone 25 MG Tablet PO (08:38)
[2022-02-03] MEDS: amLODIPine 2.5 MG Tablet PO (08:38)
[2022-02-03] MEDS: Aspirin 81 MG TAB.CHEW PO (08:38)
[2022-02-03] MEDS: Senna/Docusate Sodium 1 Tablet 2 TABLET PO ×2 (08:38→20:52)
[2022-02-03] MEDS: Furosemide 40 MG Tablet PO ×2 (08:39→17:28)
[2022-02-03] MEDS: metFORMIN HCl 500 MG Tablet PO ×2 (08:39→17:28)
[2022-02-03] MEDS: Potassium Chloride Oral Tablet 20 MEQ PO (08:39)
[2022-02-03] MEDS: SACUBITRIL/VALSARTAN 24/26 MG TABLET 1 EACH PO ×2 (08:39→20:52)
[2022-02-03] MEDS: Carvedilol 6.25 MG Tablet PO ×2 (08:39→20:52)
[2022-02-03] MEDS: Empagliflozin 25 MG Tablet PO (08:40)
[2022-02-03] MEDS: APIXABAN 5 MG TABLET PO ×2 (08:44→20:52)
[2022-02-03 15:43] VITALS: BMI 52.4
[2022-02-03 16:16] LABS: Bedside Glucose 150 mg/dL (74-106)
[2022-02-03 19:18] VITALS: BP 118/70; PULSE 77; RESP 16; TEMP 36.7; O2SAT 97
[2022-02-03] MEDS: Potassium Chloride Oral Tablet 10 MEQ PO (20:52)
[2022-02-03 23:21] VITALS: BMI 52.4
--- NOTE | 2022-02-04 01:50 | NURSING ---
Reviewed and agree with STRUCTURAL ENGINEERING PROJECT MANAGER assessment.
[2022-02-04 06:46] LABS: Bedside Glucose 144 mg/dL (74-106)
[2022-02-04] MEDS: Nystatin Powder 15gm Bottle 1 APPLIC TOPICAL ×2 (06:48→20:08)
[2022-02-04] MEDS: Arthritis Pain Compound 60 CLICK TUBE TOPICAL ×6 (06:48→20:10)
[2022-02-04] MEDS: Menthol/Lanolin/Calamine/Znox 113 GM Tube 1 APPLIC TOPICAL ×2 (06:49→20:17)
[2022-02-04] MEDS: Aspirin 81 MG TAB.CHEW PO (07:30)
[2022-02-04] MEDS: metFORMIN HCl 500 MG Tablet PO ×2 (07:30→16:52)
[2022-02-04 07:50] VITALS: BP 138/66; PULSE 57; RESP 16; TEMP 36; O2SAT 100
[2022-02-04] MEDS: Spironolactone 25 MG Tablet PO (09:55)
[2022-02-04] MEDS: Carvedilol 6.25 MG Tablet PO ×2 (09:56→20:07)
[2022-02-04] MEDS: Amiodarone 200 MG Tablet PO (09:56)
[2022-02-04] MEDS: Venlafaxine XR 150 MG Capsule PO (09:56)
[2022-02-04] MEDS: Empagliflozin 25 MG Tablet PO (09:57)
[2022-02-04] MEDS: SACUBITRIL/VALSARTAN 24/26 MG TABLET 1 EACH PO ×2 (09:57→20:07)
[2022-02-04] MEDS: APIXABAN 5 MG TABLET PO ×2 (09:57→20:08)
[2022-02-04] MEDS: Furosemide 40 MG Tablet PO ×2 (09:58→17:00)
[2022-02-04] MEDS: Potassium Chloride Oral Tablet 20 MEQ PO (09:58)
[2022-02-04] MEDS: Senna/Docusate Sodium 1 Tablet 2 TABLET PO ×2 (09:59→20:07)
[2022-02-04] MEDS: amLODIPine 2.5 MG Tablet PO (09:59)
[2022-02-04 13:00] VITALS: BMI 52.4
[2022-02-04 16:30] LABS: Bedside Glucose 150 mg/dL (74-106)
[2022-02-04] MEDS: Potassium Chloride Oral Tablet 10 MEQ PO (20:07)
--- NOTE | 2022-02-04 21:16 | CPS ---
added water to cpap
[2022-02-04 22:00] VITALS: BP 142/74; PULSE 73; RESP 16; TEMP 36.6; O2SAT 98
[2022-02-05 00:34] VITALS: BMI 52.4
[2022-02-05 02:35] VITALS: PULSE 62; RESP 14; O2SAT 97
[2022-02-05] MEDS: Nystatin Powder 15gm Bottle 1 APPLIC TOPICAL ×2 (05:30→20:21)
[2022-02-05] MEDS: Menthol/Lanolin/Calamine/Znox 113 GM Tube 1 APPLIC TOPICAL ×2 (05:30→20:18)
[2022-02-05] MEDS: Arthritis Pain Compound 60 CLICK TUBE TOPICAL ×6 (05:31→20:17)
[2022-02-05 06:51] LABS: Bedside Glucose 122 mg/dL (74-106)
[2022-02-05] MEDS: metFORMIN HCl 500 MG Tablet PO ×2 (07:47→17:06)
[2022-02-05] MEDS: Aspirin 81 MG TAB.CHEW PO (07:47)
[2022-02-05 07:54] VITALS: BP 107/41; PULSE 61; RESP 16; TEMP 36.2; O2SAT 98
[2022-02-05] MEDS: amLODIPine 2.5 MG Tablet PO (09:34)
[2022-02-05] MEDS: Senna/Docusate Sodium 1 Tablet 2 TABLET PO ×2 (09:34→20:20)
[2022-02-05] MEDS: Furosemide 40 MG Tablet PO ×2 (09:34→17:08)
[2022-02-05] MEDS: Potassium Chloride Oral Tablet 20 MEQ PO (09:34)
[2022-02-05] MEDS: APIXABAN 5 MG TABLET PO ×2 (09:35→20:19)
[2022-02-05] MEDS: Spironolactone 25 MG Tablet PO (09:35)
[2022-02-05] MEDS: Amiodarone 200 MG Tablet PO (09:35)
[2022-02-05] MEDS: SACUBITRIL/VALSARTAN 24/26 MG TABLET 1 EACH PO ×2 (09:35→20:21)
[2022-02-05] MEDS: Carvedilol 6.25 MG Tablet PO ×2 (09:35→20:18)
[2022-02-05] MEDS: Venlafaxine XR 150 MG Capsule PO (09:36)
[2022-02-05] MEDS: Empagliflozin 25 MG Tablet PO (09:37)
[2022-02-05 15:57] VITALS: BMI 52.4
[2022-02-05 16:16] LABS: Bedside Glucose 130 mg/dL (74-106)
[2022-02-05 19:08] VITALS: BP 129/72; PULSE 70; RESP 18; TEMP 36.7; O2SAT 97
[2022-02-05] MEDS: Potassium Chloride Oral Tablet 10 MEQ PO (20:15)
[2022-02-05 20:30] VITALS: BMI 52.4
[2022-02-05 22:00] VITALS: RESP 16
[2022-02-05 23:34] VITALS: PULSE 70; RESP 16; O2SAT 97
[2022-02-06 04:35] VITALS: PULSE 65; RESP 15; O2SAT 97
[2022-02-06] MEDS: Arthritis Pain Compound 60 CLICK TUBE TOPICAL ×7 (05:37→20:38)
[2022-02-06] MEDS: Nystatin Powder 15gm Bottle 1 APPLIC TOPICAL ×2 (05:39→20:40)
[2022-02-06] MEDS: Menthol/Lanolin/Calamine/Znox 113 GM Tube 1 APPLIC TOPICAL ×2 (05:40→20:39)
[2022-02-06 06:46] LABS: Bedside Glucose 133 mg/dL (74-106)
[2022-02-06 07:26] VITALS: BP 140/65; PULSE 61; RESP 16; TEMP 35.9; O2SAT 99
[2022-02-06] MEDS: Aspirin 81 MG TAB.CHEW PO (08:13)
[2022-02-06] MEDS: metFORMIN HCl 500 MG Tablet PO ×2 (08:14→17:40)
[2022-02-06] MEDS: Senna/Docusate Sodium 1 Tablet 2 TABLET PO (10:20)
[2022-02-06] MEDS: Spironolactone 25 MG Tablet PO (10:21)
[2022-02-06] MEDS: Amiodarone 200 MG Tablet PO (10:21)
[2022-02-06] MEDS: Carvedilol 6.25 MG Tablet PO ×2 (10:21→20:39)
[2022-02-06] MEDS: amLODIPine 2.5 MG Tablet PO (10:22)
[2022-02-06] MEDS: Empagliflozin 25 MG Tablet PO (10:22)
[2022-02-06] MEDS: Potassium Chloride Oral Tablet 20 MEQ PO (10:22)
[2022-02-06] MEDS: APIXABAN 5 MG TABLET PO ×2 (10:22→20:39)
[2022-02-06] MEDS: SACUBITRIL/VALSARTAN 24/26 MG TABLET 1 EACH PO ×2 (10:22→20:40)
[2022-02-06] MEDS: Furosemide 40 MG Tablet PO ×2 (10:22→17:40)
[2022-02-06] MEDS: Venlafaxine XR 150 MG Capsule PO (10:22)
--- NOTE | 2022-02-06 13:32 | CASEMGMT ---
Social Work IDT met with patient for Team meeting. Discussed patient's progress in PT/OT/ST and nursing. Pt making progress. Explained [employer] insurance with NRD 02/07 an continued stay is not guaranteed. The goal remains to DC to [facility] if unable to return home. SW received email correspondence from [facility] requesting documents verification and stated siter's mailing address is incomplete. Pt forgot to provide documents to sister during visit. Contacted sister to explain about needing verification of documents and correct mailing address. Sister not visiting for several days but agreed to get documents via email. SW sent to sister. SW to continue to follow. Luz Albrecht, STACY ESCOBEDOW
[2022-02-06 15:35] VITALS: BMI 52.4
--- NOTE | 2022-02-06 16:38 | PN_ITS ---
Subjective Subjective Afebrile VSS Maintaining appropriate oxygen saturation on RA Oral intake is good Her weight is down approximately 12-1/2 pounds since admission and she is paying very close attention to what she eats. Discussed with nursing - no problems that need addressed Reviewed the PT/OT/ST notes Medication list reviewed. The blood sugar record was reviewed and the blood sugars are under good control with no hypoglycemia. She is sleeping well and denies pain. She denies shortness of breath, cough, dysuria, lightheadedness, abdominal pain, nausea/vomiting, palpitations. She is having a period and she tells me she has not had a period for 4 months and this is the longest she has gone without a period. She is on full dose Eliquis for AF recent embolic CVA. HGB was normal on 01/18. She has not seen an PHLEBOTOMY SPECIALIST for a long time. She is microcytic and the ferritin is only 32. This is normal but on the low side. She denies pelvic pain or cramping. She denies CP, SOB, palpitations, lightheadedness, dysuria. She is sleeping well. she is doing very well in therapy and I viewed a video of her ambulating with a hemiwalker and the PT advancing her R foot forward and she ambulated 20 ft without a LOB. There is still no movement in the RUE. Her smile is more symmetrical. Still having some problems with closing the R eye but, ST is going to work with this now. She is in a good mood and is calm and engaging. Objective Data Objective Data Vital Signs: Vital Signs Temp Pulse Resp BP Pulse Ox 96.7 F L 61 16 140/65 H 99 02/06/22 07:26 02/06/22 07:26 02/06/22 07:26 02/06/22 07:26 02/06/22 07:26 Oxygen Flow Rate (L/min) 2 Oxygen Delivery Method Room Air Weight: 316 lb 5.813 oz Body Mass Index (BMI) 52.4 Intake & Output: Intake and Output for Last 24 Hours 02/04/22 02/05/22 02/06/22 23:59 23:59 23:59 Intake Total 840 / 840 1260 / 1260 240 / 240 Output Total 300 / 300 600 / 600 Balance 540 / 540 660 / 660 240 / 240 Lab / Micro Data Result Diagrams: 01/18/22 05:36 01/30/22 05:39 Labs: Laboratory Results - last 24 hr 02/06/22 06:43: POC Glucose 133 H Physical Exam Const alert, oriented x3 and no apparent distress General Appearance: cooperative and comfortable HEENT moist oral mucous membranes HEENT Narrative: The R eye is more open when compared to the left and almost gives her the appearance of having unilateral exophthalmos. There is no discharge from the eyes, no scleral icterus and no conjunctival injection. Eyes PERRL and EOMs intact bilaterally Resp clear to auscultation bilaterally Resp Narrative: Mildly diminished in the bases. No wheezes, crackles or rhonchi. She is able to speak in complete sentences. Not tachypneic at rest or with exertion. Cardio regular rate, regular rhythm and no gallops Extremity no calf tenderness Extremity Narrative: Trace ankle edema. Skin General Skin Exam: no breakdown Wound Narrative: She has some irritation beneath the breasts where it is frequently moist. Psych cooperative, affect normal, denies hallucinations, denies homicidal ideation and denies suicidal ideation Attitude: calm Activity / Motor Behavior: appropriate eye contact Mood & Affect: euthymic mood; Negative for anxious or tearful Thought Content: normal thought content Attention / Concentration: attention grossly intact Insight: insight good Judgement: judgement good Assessment & Plan Assessment/Plan (1) Facial droop due to stroke: (2) Right hemiparesis: (3) Dysarthria: (4) Physical debility: (5) Embolic cerebral infarction: (6) Diabetes mellitus, type 2: QUALIFIERS: Diabetes mellitus jail insulin use: without jail use Diabetes mellitus complication status: with circulatory complication Diabetes mellitus complication detail: with other circulatory complications Qualified Code(s): E11.59 - Type 2 diabetes mellitus with other circulatory complications (7) Sleep disorder breathing: PLAN: 1. check a hemoccult stool. 2. CBC without diff, BMP and Mag in the AM 3. No changes to the drug regimen today. 4. Continue therapy......she is making excellent strides in therapy and continues to improve. 5. Formal sleep study at [place] 6. I recommended she follow up with an PHLEBOTOMY SPECIALIST - with the anticoagulants and her being alirio-menopausal she is at risk for excessive vaginal bleeding. Charges/Coding Visit Charges Inpatient E&M: 46496 Subs Hosp L2
[2022-02-06 19:30] VITALS: BP 134/58; PULSE 70; RESP 16; TEMP 36.4; O2SAT 97
[2022-02-06] MEDS: Potassium Chloride Oral Tablet 10 MEQ PO (20:32)
[2022-02-06 20:40] VITALS: BMI 52.4
[2022-02-06 21:07] VITALS: PULSE 65; RESP 18; O2SAT 94
[2022-02-06 21:20] VITALS: PULSE 70; RESP 16; BMI 52.4
--- NOTE | 2022-02-07 02:42 | NURSING ---
REVIEWED AND AGREE WITH WINDOW DRESSER DOCUMENTATION AND ASSESSMENT CHARTING
[2022-02-07] MEDS: Nystatin Powder 15gm Bottle 1 APPLIC TOPICAL ×2 (06:27→21:51)
[2022-02-07] MEDS: Arthritis Pain Compound 60 CLICK TUBE TOPICAL ×8 (06:28→21:49)
[2022-02-07] MEDS: Menthol/Lanolin/Calamine/Znox 113 GM Tube 1 APPLIC TOPICAL ×2 (06:28→21:51)
[2022-02-07 06:45] LABS: Bedside Glucose 140 mg/dL (74-106)
[2022-02-07 07:35] VITALS: BP 107/43; PULSE 61; RESP 16; TEMP 36.7; O2SAT 96
[2022-02-07] MEDS: Amiodarone 200 MG Tablet PO (08:03)
[2022-02-07] MEDS: Venlafaxine XR 150 MG Capsule PO (08:03)
[2022-02-07] MEDS: Furosemide 40 MG Tablet PO ×2 (08:04→17:11)
[2022-02-07] MEDS: SACUBITRIL/VALSARTAN 24/26 MG TABLET 1 EACH PO ×2 (08:04→21:50)
[2022-02-07] MEDS: Aspirin 81 MG TAB.CHEW PO (08:04)
[2022-02-07] MEDS: Carvedilol 6.25 MG Tablet PO ×2 (08:04→21:50)
[2022-02-07] MEDS: metFORMIN HCl 500 MG Tablet PO ×2 (08:04→17:11)
[2022-02-07] MEDS: Spironolactone 25 MG Tablet PO (08:04)
[2022-02-07] MEDS: Empagliflozin 25 MG Tablet PO (08:05)
[2022-02-07] MEDS: APIXABAN 5 MG TABLET PO ×2 (08:05→21:50)
[2022-02-07] MEDS: amLODIPine 2.5 MG Tablet PO (08:05)
[2022-02-07] MEDS: Senna/Docusate Sodium 1 Tablet 2 TABLET PO ×2 (08:05→21:51)
[2022-02-07] MEDS: Potassium Chloride Oral Tablet 20 MEQ PO (08:05)
[2022-02-07 15:54] VITALS: BMI 52.4
[2022-02-07 18:15] LABS: Bedside Glucose 192 mg/dL (74-106)
[2022-02-07 19:00] VITALS: BP 142/76; PULSE 72; RESP 16; TEMP 36.6; O2SAT 99
[2022-02-07 21:00] VITALS: PULSE 63; RESP 19; O2SAT 96
[2022-02-07] MEDS: Potassium Chloride Oral Tablet 10 MEQ PO (21:46)
[2022-02-08 00:08] VITALS: BMI 52.4
[2022-02-08] MEDS: Menthol/Lanolin/Calamine/Znox 113 GM Tube 1 APPLIC TOPICAL ×2 (04:57→20:27)
[2022-02-08] MEDS: Nystatin Powder 15gm Bottle 1 APPLIC TOPICAL ×2 (04:58→20:29)
[2022-02-08 05:31] LABS: Hemoglobin 13.3 g/dL (12.0-15.0); Mean Corp Hgb Conc 32.4 g/dL (32-36); Mean Corpuscular Hgb 25.5 pg (27.0-32.0); Mean Corpuscular Volume 78.7 fL (81-99); POSITIVE MORPHOLOGY YES; Platelet Count 304 K/mm3 (150-450); RBC Distribution Width CV 22.4 % (11.6-14.6); Red Blood Count 5.21 M/mm3 (4.2-5.4); White Blood Count 8.1 K/mm3 (4.4-11.0)
[2022-02-08 05:34] LABS: Scan Indicated on CBC? Y/N YES- FLAGS NOTED
[2022-02-08 05:51] LABS: Anion Gap 7 (5-15); BUN 30 mg/dL (7-18); BUN/Creat Ratio 29.7 RATIO (10-20); Calcium,Total 8.9 mg/dL (8.5-10.1); Chloride 103 mmol/L (98-107); Creatinine, Serum 1.01 mg/dL (0.55-1.02); EST Glomerular Filtration Rate 61 mL/min (>60); Est Glom Filt Rate - Afr Amer 73 mL/min (>60); Glucose 115 mg/dL (74-106); Magnesium 1.9 mg/dL (1.6-2.6); Potassium 3.6 mmol/L (3.5-5.1); Sodium Level 138 mmol/L (136-145)
[2022-02-08 06:16] LABS: Differential Comment SCANNED
[2022-02-08 06:55] LABS: Bedside Glucose 129 mg/dL (74-106)
[2022-02-08] MEDS: Aspirin 81 MG TAB.CHEW PO (09:02)
[2022-02-08] MEDS: Arthritis Pain Compound 60 CLICK TUBE TOPICAL ×5 (09:03→20:26)
[2022-02-08] MEDS: Spironolactone 25 MG Tablet PO (09:03)
[2022-02-08] MEDS: metFORMIN HCl 500 MG Tablet PO ×2 (09:03→17:59)
[2022-02-08] MEDS: APIXABAN 5 MG TABLET PO ×2 (09:04→20:28)
[2022-02-08] MEDS: Carvedilol 6.25 MG Tablet PO ×2 (09:04→20:28)
[2022-02-08] MEDS: Venlafaxine XR 150 MG Capsule PO (09:04)
[2022-02-08] MEDS: Amiodarone 200 MG Tablet PO (09:04)
[2022-02-08] MEDS: Potassium Chloride Oral Tablet 20 MEQ PO (09:05)
[2022-02-08] MEDS: SACUBITRIL/VALSARTAN 24/26 MG TABLET 1 EACH PO ×2 (09:05→20:28)
[2022-02-08] MEDS: Empagliflozin 25 MG Tablet PO (09:05)
[2022-02-08] MEDS: Furosemide 40 MG Tablet PO ×2 (09:05→17:59)
[2022-02-08] MEDS: amLODIPine 2.5 MG Tablet PO (09:05)
[2022-02-08] MEDS: Senna/Docusate Sodium 1 Tablet 2 TABLET PO ×2 (09:05→20:30)
[2022-02-08 10:00] VITALS: BP 119/63; PULSE 61; RESP 18; TEMP 36.6; O2SAT 98
[2022-02-08 16:14] VITALS: BMI 52.4
[2022-02-08 18:30] LABS: Bedside Glucose 168 mg/dL (74-106)
[2022-02-08] MEDS: Potassium Chloride Oral Tablet 10 MEQ PO (20:24)
[2022-02-08 20:42] VITALS: BP 136/68; PULSE 67; RESP 16; TEMP 36.5; O2SAT 97
[2022-02-08 20:50] VITALS: PULSE 64; RESP 20; O2SAT 97
[2022-02-09 01:49] VITALS: BMI 52.4
--- NOTE | 2022-02-09 04:28 | NURSING ---
Reviewed and agree with HOUSE WIRER assessment.
[2022-02-09] MEDS: Menthol/Lanolin/Calamine/Znox 113 GM Tube 1 APPLIC TOPICAL ×2 (05:54→20:07)
[2022-02-09] MEDS: Nystatin Powder 15gm Bottle 1 APPLIC TOPICAL ×2 (05:54→20:07)
[2022-02-09 07:01] LABS: Bedside Glucose 120 mg/dL (74-106)
[2022-02-09] MEDS: Arthritis Pain Compound 60 CLICK TUBE TOPICAL ×6 (07:40→20:09)
[2022-02-09] MEDS: metFORMIN HCl 500 MG Tablet PO ×2 (07:42→17:05)
[2022-02-09] MEDS: Aspirin 81 MG TAB.CHEW PO (07:42)
[2022-02-09] MEDS: Spironolactone 25 MG Tablet PO (07:43)
[2022-02-09] MEDS: amLODIPine 2.5 MG Tablet PO (07:44)
[2022-02-09] MEDS: Furosemide 40 MG Tablet PO ×2 (07:44→17:05)
[2022-02-09] MEDS: Potassium Chloride Oral Tablet 20 MEQ PO (07:44)
[2022-02-09] MEDS: Senna/Docusate Sodium 1 Tablet 2 TABLET PO ×2 (07:44→20:06)
[2022-02-09] MEDS: SACUBITRIL/VALSARTAN 24/26 MG TABLET 1 EACH PO ×2 (07:47→20:07)
[2022-02-09] MEDS: Amiodarone 200 MG Tablet PO (07:47)
[2022-02-09] MEDS: APIXABAN 5 MG TABLET PO ×2 (07:47→20:07)
[2022-02-09] MEDS: Empagliflozin 25 MG Tablet PO (07:47)
[2022-02-09] MEDS: Venlafaxine XR 150 MG Capsule PO (07:47)
[2022-02-09] MEDS: Carvedilol 6.25 MG Tablet PO ×2 (07:47→20:07)
[2022-02-09 07:51] VITALS: BP 124/68; PULSE 57; RESP 20; TEMP 36.7; O2SAT 96
[2022-02-09 14:14] VITALS: BMI 52.4
[2022-02-09 16:46] LABS: Bedside Glucose 143 mg/dL (74-106)
[2022-02-09 19:17] VITALS: BP 118/61; PULSE 76; RESP 18; TEMP 36.7; O2SAT 97
[2022-02-09] MEDS: Potassium Chloride Oral Tablet 10 MEQ PO (20:08)
[2022-02-09 21:45] VITALS: PULSE 60; RESP 20; O2SAT 95
[2022-02-10 06:46] LABS: Bedside Glucose 129 mg/dL (74-106)
[2022-02-10] MEDS: Arthritis Pain Compound 60 CLICK TUBE TOPICAL ×7 (06:51→20:14)
[2022-02-10] MEDS: Magnesium Hydroxide 30 ML UDC PO (06:51)
[2022-02-10] MEDS: Menthol/Lanolin/Calamine/Znox 113 GM Tube 1 APPLIC TOPICAL ×2 (06:52→20:13)
[2022-02-10] MEDS: Nystatin Powder 15gm Bottle 1 APPLIC TOPICAL ×2 (06:53→20:12)
[2022-02-10 07:27] VITALS: BP 135/48; PULSE 61; RESP 18; TEMP 36.2; O2SAT 97
[2022-02-10] MEDS: Aspirin 81 MG TAB.CHEW PO (07:53)
[2022-02-10] MEDS: metFORMIN HCl 500 MG Tablet PO ×2 (07:53→17:34)
[2022-02-10] MEDS: Spironolactone 25 MG Tablet PO (07:53)
[2022-02-10] MEDS: SACUBITRIL/VALSARTAN 24/26 MG TABLET 1 EACH PO ×2 (07:54→20:13)
[2022-02-10] MEDS: Carvedilol 6.25 MG Tablet PO ×2 (07:54→20:13)
[2022-02-10] MEDS: Amiodarone 200 MG Tablet PO (07:54)
[2022-02-10] MEDS: Venlafaxine XR 150 MG Capsule PO (07:54)
[2022-02-10] MEDS: APIXABAN 5 MG TABLET PO ×2 (07:54→20:13)
[2022-02-10] MEDS: Senna/Docusate Sodium 1 Tablet 2 TABLET PO ×2 (07:55→20:12)
[2022-02-10] MEDS: amLODIPine 2.5 MG Tablet PO (07:55)
[2022-02-10] MEDS: Empagliflozin 25 MG Tablet PO (07:55)
[2022-02-10] MEDS: Furosemide 40 MG Tablet PO ×2 (07:55→17:34)
[2022-02-10] MEDS: Potassium Chloride Oral Tablet 20 MEQ PO (07:55)
--- NOTE | 2022-02-10 15:46 | CASEMGMT ---
Social Work Spoke with Makenna at [facility] to confirm pt still is able to DC there once cut from insurance on RU. Makenna confirmed. Will continue to follow. NRD 02/14. Luz Albrecht, STACY ESCOBEDOW
[2022-02-10 16:11] LABS: Bedside Glucose 129 mg/dL (74-106)
[2022-02-10 16:54] VITALS: BMI 52.4
[2022-02-10 19:29] VITALS: BP 138/84; PULSE 72; RESP 16; TEMP 36.9; O2SAT 100
[2022-02-10] MEDS: Potassium Chloride Oral Tablet 10 MEQ PO (20:15)
[2022-02-10 21:32] VITALS: PULSE 72; RESP 16; O2SAT 98
[2022-02-11] MEDS: Arthritis Pain Compound 60 CLICK TUBE TOPICAL ×4 (06:28→20:25)
[2022-02-11] MEDS: Nystatin Powder 15gm Bottle 1 APPLIC TOPICAL ×2 (06:35→20:24)
[2022-02-11] MEDS: Menthol/Lanolin/Calamine/Znox 113 GM Tube 1 APPLIC TOPICAL ×2 (06:36→20:24)
[2022-02-11 06:40] LABS: Bedside Glucose 117 mg/dL (74-106)
[2022-02-11 07:32] VITALS: BP 123/72; PULSE 64; RESP 18; TEMP 36.2; O2SAT 96
[2022-02-11] MEDS: Spironolactone 25 MG Tablet PO (09:09)
[2022-02-11] MEDS: amLODIPine 2.5 MG Tablet PO (09:11)
[2022-02-11] MEDS: Carvedilol 6.25 MG Tablet PO ×2 (09:12→20:26)
[2022-02-11] MEDS: Amiodarone 200 MG Tablet PO (09:12)
[2022-02-11] MEDS: APIXABAN 5 MG TABLET PO ×2 (09:13→20:26)
[2022-02-11] MEDS: Venlafaxine XR 150 MG Capsule PO (09:13)
[2022-02-11] MEDS: SACUBITRIL/VALSARTAN 24/26 MG TABLET 1 EACH PO ×2 (09:14→20:26)
[2022-02-11] MEDS: Empagliflozin 25 MG Tablet PO (09:15)
[2022-02-11] MEDS: Potassium Chloride Oral Tablet 20 MEQ PO (09:16)
[2022-02-11] MEDS: Senna/Docusate Sodium 1 Tablet 2 TABLET PO ×2 (09:17→20:25)
[2022-02-11] MEDS: Furosemide 40 MG Tablet PO ×2 (09:17→17:13)
[2022-02-11] MEDS: Aspirin 81 MG TAB.CHEW PO (09:21)
[2022-02-11] MEDS: metFORMIN HCl 500 MG Tablet PO ×2 (09:22→17:12)
[2022-02-11 11:20] LABS: Bedside Glucose 138 mg/dL (74-106)
[2022-02-11 14:53] VITALS: BP 127/80; PULSE 71; RESP 14; TEMP 36.6; O2SAT 97
[2022-02-11 15:46] VITALS: BMI 52.4
[2022-02-11 16:55] LABS: Bedside Glucose 117 mg/dL (74-106)
[2022-02-11 19:43] VITALS: BP 128/80; PULSE 76; RESP 17; TEMP 36.6; O2SAT 98
[2022-02-11 20:00] VITALS: BMI 52.4
[2022-02-11] MEDS: Potassium Chloride Oral Tablet 10 MEQ PO (20:27)
[2022-02-11 21:12] VITALS: BMI 52.4
[2022-02-12] MEDS: Arthritis Pain Compound 60 CLICK TUBE TOPICAL ×6 (05:05→20:33)
[2022-02-12] MEDS: Nystatin Powder 15gm Bottle 1 APPLIC TOPICAL ×2 (05:06→20:30)
[2022-02-12] MEDS: Menthol/Lanolin/Calamine/Znox 113 GM Tube 1 APPLIC TOPICAL ×2 (05:06→20:29)
[2022-02-12 06:20] LABS: Bedside Glucose 117 mg/dL (74-106)
[2022-02-12] MEDS: Carvedilol 6.25 MG Tablet PO ×2 (08:29→20:29)
[2022-02-12] MEDS: metFORMIN HCl 500 MG Tablet PO ×2 (08:30→16:50)
[2022-02-12] MEDS: Spironolactone 25 MG Tablet PO (08:30)
[2022-02-12] MEDS: SACUBITRIL/VALSARTAN 24/26 MG TABLET 1 EACH PO ×2 (08:30→20:28)
[2022-02-12] MEDS: APIXABAN 5 MG TABLET PO ×2 (08:30→20:29)
[2022-02-12] MEDS: Venlafaxine XR 150 MG Capsule PO (08:31)
[2022-02-12] MEDS: Furosemide 40 MG Tablet PO ×2 (08:31→17:01)
[2022-02-12] MEDS: Aspirin 81 MG TAB.CHEW PO (08:31)
[2022-02-12] MEDS: Amiodarone 200 MG Tablet PO (08:34)
[2022-02-12] MEDS: Potassium Chloride Oral Tablet 20 MEQ PO (08:34)
[2022-02-12] MEDS: Empagliflozin 25 MG Tablet PO (08:39)
[2022-02-12] MEDS: amLODIPine 2.5 MG Tablet PO (08:40)
[2022-02-12 10:00] VITALS: BP 117/60; PULSE 61; RESP 16; TEMP 36.6; O2SAT 95
[2022-02-12 15:15] VITALS: BMI 52.4
[2022-02-12 17:11] LABS: Bedside Glucose 126 mg/dL (74-106)
[2022-02-12 20:00] VITALS: BP 132/78; PULSE 75; RESP 17; TEMP 36.1; O2SAT 97; BMI 52.4
[2022-02-12] MEDS: Senna/Docusate Sodium 1 Tablet 2 TABLET PO (20:28)
[2022-02-12] MEDS: Potassium Chloride Oral Tablet 10 MEQ PO (20:29)
[2022-02-12 21:46] VITALS: PULSE 66; RESP 18; O2SAT 96
--- NOTE | 2022-02-13 04:22 | NURSING ---
Reviewed and agree with ARCHITECTURAL WOOD MODEL MAKER assessment.
[2022-02-13] MEDS: Arthritis Pain Compound 60 CLICK TUBE TOPICAL ×6 (05:43→20:48)
[2022-02-13] MEDS: Nystatin Powder 15gm Bottle 1 APPLIC TOPICAL ×2 (05:44→20:46)
[2022-02-13] MEDS: Menthol/Lanolin/Calamine/Znox 113 GM Tube 1 APPLIC TOPICAL ×2 (05:44→20:47)
[2022-02-13 06:40] LABS: Bedside Glucose 123 mg/dL (74-106)
[2022-02-13 07:16] VITALS: BP 118/64; PULSE 59; RESP 18; TEMP 36.1; O2SAT 95
[2022-02-13] MEDS: Empagliflozin 25 MG Tablet PO (07:33)
[2022-02-13] MEDS: SACUBITRIL/VALSARTAN 24/26 MG TABLET 1 EACH PO ×2 (07:33→20:47)
[2022-02-13] MEDS: Spironolactone 25 MG Tablet PO (07:33)
[2022-02-13] MEDS: Furosemide 40 MG Tablet PO ×2 (07:33→17:22)
[2022-02-13] MEDS: Aspirin 81 MG TAB.CHEW PO (07:33)
[2022-02-13] MEDS: Potassium Chloride Oral Tablet 20 MEQ PO (07:33)
[2022-02-13] MEDS: Carvedilol 6.25 MG Tablet PO ×2 (07:34→20:48)
[2022-02-13] MEDS: Amiodarone 200 MG Tablet PO (07:34)
[2022-02-13] MEDS: Venlafaxine XR 150 MG Capsule PO (07:34)
[2022-02-13] MEDS: metFORMIN HCl 500 MG Tablet PO ×2 (07:34→17:22)
[2022-02-13] MEDS: amLODIPine 2.5 MG Tablet PO (07:34)
[2022-02-13] MEDS: APIXABAN 5 MG TABLET PO ×2 (07:35→20:48)
[2022-02-13] MEDS: Senna/Docusate Sodium 1 Tablet 2 TABLET PO ×2 (07:36→20:47)
--- NOTE | 2022-02-13 13:48 | CASEMGMT ---
Social Work IDT met with patient for Team meeting. Discussed patient's progress in PT/OT and nursing. ST discharged. Pt making progress. Explained insurance NRD 02/14 and continued stay is not guaranteed. Pt will DC to [facility]. SW to continue to follow. Luz Albrecht, RN CLINICAL GEAR SHAVER SET UP OPERATOR
[2022-02-13 14:09] VITALS: BMI 52.4
--- NOTE | 2022-02-13 15:20 | PCM.PROGNOTE ---
Subjective Subjective Mylene was seen on team rounds today. There was no family present in the room and no one participated by phone. Afebrile VSS-blood pressure is well controlled Maintaining appropriate oxygen saturation on RA Oral intake is good She has lost 13 lbs since admission. Although she tells me there has been no change in her appetite she is now able to control her intake and has been good about the choices she makes and not having family bring in treats. Discussed with nursing - no problems that need addressed Reviewed the PT/OT/ST notes - She continues to make excellent progress and she is very motivated to get better. She does exercises in her room given to her by the therapists in the evening. She did so well in ST that they are dropping her and she will get 30 minutes more a day of PT and OT. She was able to do the TUG test today for the first time using the Joey-walker. Medication list reviewed. The blood sugar record was reviewed. Blood sugars are under excellent control with no hypoglycemia. Mylene has no complaints today. She tells me that the R knee is much better since it was injected and since she is now getting regular exercise. She denies cough, SOB, CP, palpitations, lightheadedness, dysuria, N/V/abd pain. She is sleeping well. She is still tearful at times when she thinks about home. She tells me that her legs feel less fatigued and less tight since she has been wearing the ANDRES Wraps for compression. Objective Data Objective Data Vital Signs: Vital Signs Temp Pulse Resp BP Pulse Ox 97.0 F L 59 L 18 118/64 95 02/13/22 07:16 02/13/22 07:16 02/13/22 07:16 02/13/22 07:16 02/13/22 07:16 Oxygen Flow Rate (L/min) 2 Oxygen Delivery Method Room Air Weight: 314 lb 12.48 oz Body Mass Index (BMI) 52.4 Intake & Output: Intake and Output for Last 24 Hours 02/11/22 02/12/22 02/13/22 23:59 23:59 23:59 Intake Total 960 / 960 960 / 960 700 / 700 Balance 960 / 960 960 / 960 700 / 700 Lab / Micro Data Result Diagrams: 02/08/22 05:25 02/08/22 05:25 Labs: Laboratory Results - last 24 hr 02/12/22 16:50: POC Glucose 126 H 02/13/22 06:12: POC Glucose 123 H Micro: Microbiology 02/10/22 09:15 Stool Stool Occult Blood (AMY) - Final Occult Blood Positive Physical Exam Const alert, oriented x3 and no apparent distress Constitutional Narrative: Sitting in the recliner and smiling. General Appearance: cooperative, comfortable, well kempt and well developed Eyes conjunctivae normal and no scleral icterus Eyes Narrative: Able to close the R eye but not as tightly as the left and the R eye appears larger than the left due to this. Resp normal respiratory effort and clear to auscultation bilaterally Effort and Inspection: able to speak in complete sentences Cardio regular rate, regular rhythm and no murmurs Cardio Narrative: Distant heart sounds GI normal to inspection, nondistended, normoactive bowel sounds, soft to palpation and non-tender Extremity no calf tenderness and no pedal edema Extremity Narrative: She admits to having less nocturia since she has been wearing the compression stockings. Skin General Skin Exam: no breakdown Rashes: no rashes Neuro Neuro Narrative: She is getting more strength in the R quad and was able to extend the R leg today from a seated position. Still no movement in the R arm but, she is learning to compensate for this. Facial droop on the R is minimal now and you can barely notice when she smiles. Using the HW consistently now for ambulation. Psych mental status grossly normal, thought process normal and cooperative Psych Narrative: She is tearful today but, this only happens when she is thinking about going home. She is fearful that she will not be able to return home. She is eating well, sleeping well (much better with the CPAP), very motivated and working hard, making good eye contact and talkative with staff, smiles easily. Appearance: grossly normal and appropriate Activity / Motor Behavior: appropriate eye contact Assessment & Plan Assessment/Plan (1) Embolic cerebral infarction: PLAN: Continue therapy. She is making excellent progress since admission. The LDL is at goal. BP is , 130/80 but, the HGBA1C at admission was 7.6. We discussed the goals with her and recommended she always know her BP, LDL and HGBA1C. Need the HGBA1C to be less than 7. Weight loss is recommended.......not only for heart issues and strokes but for OA and severe knee pain so that she can one day have knee replacements. (2) Atrial fibrillation: QUALIFIERS: Atrial fibrillation type: persistent (not longstanding) Qualified Code(s): I48.19 - Other persistent atrial fibrillation PLAN: HR is controlled and she is at times in SR..........we talked about how the CM/EF can improve if the HR is controlled well. (3) Chronic anticoagulation: PLAN: She is in the therapeutic window for Factor X I activity. she failed Xarelto. Plan on continuing the Eliquis at [facility]. (4) Tachycardia induced cardiomyopathy: (5) Chronic systolic CHF (congestive heart failure): (6) Depression: QUALIFIERS: Depression Type: reactive depression Qualified Code(s): F32.9 - Major depressive disorder, single episode, unspecified PLAN: We discussed increasing the dose of Effexor XR. She thinks that she is doing a lot better and it is really only when she thinks of home that she is tearful so we are going to stick with the 150 mg daily and she agrees to let me know if she thinks she is becoming increasingly depressed. I also encouraged her to consider some psychotherapy to learn how to deal with her disabilities and cope. Also may help with the food addiction. (7) Sleep disorder breathing: PLAN: Much more energy and clarity of thinking now that she is on CPAP. Will need a formal sleep study following DC from rehab. She will need to be on oxygen when she leaves rehab since she will not be prescribed a CPAP unit until she has a sleep stdy. (8) Diabetes mellitus, type 2: QUALIFIERS: Diabetes mellitus nursing home insulin use: without terminal worker use Diabetes mellitus complication status: with circulatory complication Diabetes mellitus complication detail: with other circulatory complications Qualified Code(s): E11.59 - Type 2 diabetes mellitus with other circulatory complications PLAN: Excellent control now. Continue the Jardiance and Glucophage. No hypoglycemia. (9) Heme + stool: PLAN: Has ever had a colonoscopy. She is still having periods although they are irregular. The + result could be due to the recent period she had. Bleeding is not heavy, even with the Eliquis. I advised her to follow up with a SWISS TYPE SCREW MACHINE OPERATOR doc at [facility]. Charges/Coding Visit Charges Inpatient E&M: 65398 Subs Hosp L2
[2022-02-13 16:11] LABS: Bedside Glucose 129 mg/dL (74-106)
[2022-02-13 19:09] VITALS: BP 133/72; PULSE 71; RESP 18; TEMP 36.9; O2SAT 97
[2022-02-13 20:30] VITALS: PULSE 71; RESP 18; BMI 52.4
[2022-02-13] MEDS: Potassium Chloride Oral Tablet 10 MEQ PO (20:48)
--- NOTE | 2022-02-14 01:35 | NURSING ---
Reviewed and agree with SAFETY LEADER documentation and assessment charting.
[2022-02-14] MEDS: Arthritis Pain Compound 60 CLICK TUBE TOPICAL ×6 (05:10→21:24)
[2022-02-14] MEDS: Menthol/Lanolin/Calamine/Znox 113 GM Tube 1 APPLIC TOPICAL ×2 (05:12→21:26)
[2022-02-14] MEDS: Nystatin Powder 15gm Bottle 1 APPLIC TOPICAL ×2 (05:12→21:21)
[2022-02-14 06:56] LABS: Bedside Glucose 115 mg/dL (74-106)
[2022-02-14 07:17] VITALS: BP 125/75; PULSE 57; RESP 16; TEMP 36.2; O2SAT 98
[2022-02-14] MEDS: Carvedilol 6.25 MG Tablet PO ×2 (07:30→21:23)
[2022-02-14] MEDS: Empagliflozin 25 MG Tablet PO (07:30)
[2022-02-14] MEDS: Potassium Chloride Oral Tablet 20 MEQ PO (07:30)
[2022-02-14] MEDS: Aspirin 81 MG TAB.CHEW PO (07:30)
[2022-02-14] MEDS: Senna/Docusate Sodium 1 Tablet 2 TABLET PO ×2 (07:30→21:21)
[2022-02-14] MEDS: amLODIPine 2.5 MG Tablet PO (07:31)
[2022-02-14] MEDS: Furosemide 40 MG Tablet PO ×2 (07:31→16:54)
[2022-02-14] MEDS: Amiodarone 200 MG Tablet PO (07:31)
[2022-02-14] MEDS: metFORMIN HCl 500 MG Tablet PO ×2 (07:31→16:54)
[2022-02-14] MEDS: Spironolactone 25 MG Tablet PO (07:31)
[2022-02-14] MEDS: APIXABAN 5 MG TABLET PO ×2 (07:31→21:23)
[2022-02-14] MEDS: Venlafaxine XR 150 MG Capsule PO (07:31)
[2022-02-14] MEDS: SACUBITRIL/VALSARTAN 24/26 MG TABLET 1 EACH PO ×2 (07:31→21:23)
--- NOTE | 2022-02-14 10:18 | PCM.PROGNOTE ---
Subjective Subjective Afebrile VSS-blood pressure is within goal. Heart rate is consistently normal. Maintaining appropriate oxygen saturation on RA - Wearing the hospital's CPAP at night and sleeping well. Oral intake is good Her weight is down another pound and a half since 02/11/2022. Discussed with nursing - no problems that need addressed Reviewed the PT/OT/ST notes Medication list reviewed. Blood sugar record was reviewed. The blood sugars are under excellent control with no hypoglycemia. No complaints. She is smiling and happy with her progress. Not tearful today. Denies chest pain, shortness of breath, lightheadedness, cephalgia, dysuria, nausea/vomiting/diarrhea/constipation/abdominal pain. Objective Data Objective Data Vital Signs: Vital Signs Temp Pulse Resp BP Pulse Ox 97.1 F L 57 L 16 125/75 H 98 02/14/22 07:17 02/14/22 07:17 02/14/22 07:17 02/14/22 07:17 02/14/22 07:17 Oxygen Flow Rate (L/min) 2 Oxygen Delivery Method Room Air Weight: 312 lb 6.32 oz Body Mass Index (BMI) 52.4 Intake & Output: Intake and Output for Last 24 Hours 02/12/22 02/13/22 02/14/22 23:59 23:59 23:59 Intake Total 960 / 960 700 / 700 240 / 240 Balance 960 / 960 700 / 700 240 / 240 Lab / Micro Data Result Diagrams: 02/15/22 05:41 02/15/22 05:41 Labs: Laboratory Results - last 24 hr 02/13/22 15:56: POC Glucose 129 H 02/14/22 06:21: POC Glucose 115 H Micro: Microbiology 02/10/22 09:15 Stool Stool Occult Blood (AMY) - Final Occult Blood Positive Physical Exam Const alert, oriented x3 and no apparent distress Constitutional Narrative: Making good eye contact, appropriate General Appearance: cooperative and comfortable HEENT moist oral mucous membranes Neck no lymphadenopathy, supple, no JVD and no carotid bruits Resp normal respiratory effort, no use of accessory muscles and clear to auscultation bilaterally Resp Narrative: Not tachypneic and no conversational dyspnea. Cardio regular rate, regular rhythm, S1 normal heart sound, S2 normal heart sound, no murmurs, no rub and no gallops GI normal to inspection, nondistended, normoactive bowel sounds, soft to palpation and non-tender GI Narrative: No guarding with palpation. Extremity no clubbing, cyanosis or edema Extremity Narrative: Legs are feeling less fatigued and are much less swollen since we have been wrapping her legs. We discussed Circaids as an OP for ease of application at home and she is agreeable. Skin Skin Narrative: No rashes, no skin breakdown. Wounds: Negative for wounds noted Neuro oriented x3 Neuro Narrative: mild facial droop now. Still no movement in the RUE but better with the RLE. She is ambulating much better with the HW. Psych affect normal Psych Narrative: Appropriate, making good eye contact. Able to stay on topic and focus. No flight of ideas. Does not appear anxious or depressed. Conversant and relating well to staff. Overall much improved on the Effexor which was started at admission. No adverse SE's. Assessment & Plan Assessment/Plan (1) Embolic cerebral infarction: PLAN: Doing very well in therapy and continues to progress well. She is highly motivated and wants to be able to go home so that she can be with her family daniel the grandchildren. (2) Chronic anticoagulation: PLAN: Factor XI activity is therapeutic and she has not had any bleeding from the gums, nosebleeds, rectal bleeding, hematuria. She does have Hemoccult positive stool but I suspect the sample was contaminated because she was on her menstrual cycle. (3) Tachycardia induced cardiomyopathy: PLAN: Heart rate is well controlled on the current regimen. (4) Atrial fibrillation: QUALIFIERS: Atrial fibrillation type: persistent (not longstanding) Qualified Code(s): I48.19 - Other persistent atrial fibrillation (5) Depression: QUALIFIERS: Depression Type: reactive depression Qualified Code(s): F32.9 - Major depressive disorder, single episode, unspecified PLAN: Plan is to continue Effexor 150 mg p.o. daily at discharge with no consideration for discontinuing or tapering this medication for at least 3 to 6 months post discharge. I suspect that she has been depressed for quite some time and I recommended to her that she consider psychotherapy to learn to cope with her disabilities and depression post DC. (6) Diabetes mellitus, type 2: QUALIFIERS: Diabetes mellitus residential insulin use: without termite exterminator helper use Diabetes mellitus complication status: with circulatory complication Diabetes mellitus complication detail: with other circulatory complications Qualified Code(s): E11.59 - Type 2 diabetes mellitus with other circulatory complications PLAN: Excellent control on Jardiance and Glucophage BID with no hypoglycemia. (7) Sleep disorder breathing: PLAN: She is doing well on the CPAP she is getting her at the hospital. Good energy, no more RLS, not feeling fatigued in the AM. Needs a formal sleep study JODEE after DC and follow up with pulmonary medicine. She will need oxygen at DC prior to getting her own CPAP machine because she is hypoxic at night while sleeping when she does not have oxygen on. Charges/Coding Visit Charges Inpatient E&M: 01426 Subs Hosp L2
[2022-02-14 14:08] VITALS: BMI 52.4
[2022-02-14 16:10] LABS: Bedside Glucose 125 mg/dL (74-106)
[2022-02-14 19:16] VITALS: BP 144/79; PULSE 85; RESP 16; TEMP 36.8; O2SAT 99
[2022-02-14] MEDS: Potassium Chloride Oral Tablet 10 MEQ PO (21:25)
[2022-02-14 21:34] VITALS: BMI 52.4
[2022-02-14 22:00] VITALS: PULSE 74; RESP 16; O2SAT 98
[2022-02-15 00:37] VITALS: PULSE 60; RESP 17; O2SAT 95
[2022-02-15 05:49] LABS: Hematocrit 39.8 % (37-47); Hemoglobin 12.9 g/dL (12.0-15.0)
[2022-02-15 06:31] LABS: Albumin, Serum 3.2 g/dL (3.2-5.0); BUN 26 mg/dL (7-18); Calcium,Total 8.7 mg/dL (8.5-10.1); Chloride 100 mmol/L (98-107); Creatinine, Serum 1.18 mg/dL (0.55-1.02); EST Glomerular Filtration Rate 51 mL/min (>60); Est Glom Filt Rate - Afr Amer 61 mL/min (>60); Estimated Creatinine Clearance 49.04 ml/min; Glucose 102 mg/dL (74-106); Phosphorus 4.6 mg/dL (2.5-4.9); Potassium 3.7 mmol/L (3.5-5.1); Sodium Level 136 mmol/L (136-145)
[2022-02-15 06:45] LABS: Bedside Glucose 101 mg/dL (74-106)
[2022-02-15] MEDS: Arthritis Pain Compound 60 CLICK TUBE TOPICAL ×7 (07:18→21:11)
[2022-02-15] MEDS: Nystatin Powder 15gm Bottle 1 APPLIC TOPICAL ×2 (07:20→21:17)
[2022-02-15] MEDS: Menthol/Lanolin/Calamine/Znox 113 GM Tube 1 APPLIC TOPICAL ×2 (07:20→21:17)
[2022-02-15 07:23] VITALS: BP 129/76; PULSE 60; RESP 18; TEMP 36.6; O2SAT 97
[2022-02-15] MEDS: SACUBITRIL/VALSARTAN 24/26 MG TABLET 1 EACH PO ×2 (09:01→21:13)
[2022-02-15] MEDS: Aspirin 81 MG TAB.CHEW PO (09:02)
[2022-02-15] MEDS: amLODIPine 2.5 MG Tablet PO (09:02)
[2022-02-15] MEDS: Furosemide 40 MG Tablet PO ×2 (09:02→17:21)
[2022-02-15] MEDS: Spironolactone 25 MG Tablet PO (09:02)
[2022-02-15] MEDS: Potassium Chloride Oral Tablet 20 MEQ PO (09:02)
[2022-02-15] MEDS: Amiodarone 200 MG Tablet PO (09:02)
[2022-02-15] MEDS: APIXABAN 5 MG TABLET PO ×2 (09:02→21:12)
[2022-02-15] MEDS: Carvedilol 6.25 MG Tablet PO ×2 (09:02→21:12)
[2022-02-15] MEDS: Empagliflozin 25 MG Tablet PO (09:02)
[2022-02-15] MEDS: Senna/Docusate Sodium 1 Tablet 2 TABLET PO ×2 (09:02→21:13)
[2022-02-15] MEDS: metFORMIN HCl 500 MG Tablet PO ×2 (09:02→17:21)
[2022-02-15] MEDS: Venlafaxine XR 150 MG Capsule PO (09:02)
--- NOTE | 2022-02-15 13:31 | PN_ITS ---
Progress Note Afebrile Blood pressure is not at goal yet. The diastolics are consistently at goal but the systolics are more often than not greater than 130. Heart rate is within normal limits Maintaining appropriate oxygen saturation while awake on room air Compliant with CPAP at night and feels that she is rested in the morning when she gets up Medication list was reviewed All lab was personally reviewed. Hemoglobin is stable. Potassium is 3.7 today. The BUN is 26 and the creatinine is 1.18 which is up from 1.01 on 02/08/2022. Phosphorus is normal. Calcium corrected for hypoalbuminemia is within normal limits. No complaints today and she is doing well with therapy and continues to improve. Not tearful today. Denies calf pain, chest pain, shortness of breath, lightheadedness, palpitations, dysuria. When I see her now she is always smiling and has a positive attitude. She denies feeling anxious. Has had no adverse reactions with Effexor. Physical Exam Const alert, oriented x3 and no apparent distress Eyes PERRL, EOMs intact bilaterally, conjunctivae normal and no scleral icterus Resp normal respiratory effort, normal air movement, no use of accessory muscles and clear to auscultation bilaterally Resp Narrative: Somewhat diminished and I suspect this is due to body habitus rather than COPD. I never here her coughing or choking when eating. Effort and Inspection: able to speak in complete sentences Cardio Cardio Narrative: irreg irreg today but the HR is well controlled GI normal to inspection, nondistended, normoactive bowel sounds, soft to palpation and non-tender Extremity no calf tenderness and no pedal edema Extremity Narrative: ANDRES wraps are in place. Circaids have been ordered to control the venous insufficiency post DC and they are much easier for the family to put on. Skin no wounds Rashes: no rashes Psych cooperative and affect normal Appearance: appropriate and well kempt Attitude: calm Activity / Motor Behavior: appropriate eye contact Speech: normal speech Mood & Affect: euthymic mood Insight: insight good Judgement: judgement good Assessment & Plan Assessment/Plan (1) Embolic cerebral infarction: (2) Depression: QUALIFIERS: Depression Type: reactive depression Qualified Code(s): F32.9 - Major depressive disorder, single episode, unspecified (3) Diabetes mellitus, type 2: QUALIFIERS: Diabetes mellitus assisted insulin use: without local intermodal truck driver use Diabetes mellitus complication status: with circulatory complication Diabetes mellitus complication detail: with other circulatory complications Qualified Code(s): E11.59 - Type 2 diabetes mellitus with other circulatory complications PLAN: 1. Continue PT/OT/ST. 2. Continue the current diabetic regimen as her blood sugars are under excellent control with no hypoglycemia. She is doing very well with her diet and her selection of food items for meals. 3. The creatinine is a little high today and I reminded her to maintain good fluid intake. She is currently on Lasix 40 mg twice daily and may be able to get by on 40 mg once daily at this time. Will recheck a BMP on Sunday and if the creatinine continues to climb will decrease furosemide to once daily. 4. Systolic blood pressure is not yet at goal and is fairly consistently greater than 130. I am going to increase the Amlodipine to 5 mg daily and continue to monitor the BP's and check orthostatics in a few days. 5. We discussed once again today the goals for BP control, DM II control and LDL and the importance of knowing these numbers at all times to prevent strokes going forward. She is very motivated to continue wt loss and she has been making better choices with her meals. She has not had outside food since entering the hospital. Visit Charges Inpatient E&M: 70870 Subs Hosp L2
[2022-02-15 15:00] VITALS: BMI 52.4
[2022-02-15 16:11] LABS: Bedside Glucose 126 mg/dL (74-106)
[2022-02-15 19:06] VITALS: BP 143/77; PULSE 89; RESP 16; TEMP 36.9; O2SAT 100
[2022-02-15 19:09] VITALS: BMI 52.4
[2022-02-15 19:12] VITALS: PULSE 89; RESP 18
[2022-02-15] MEDS: Potassium Chloride Oral Tablet 10 MEQ PO (21:05)
--- NOTE | 2022-02-15 21:40 | NURSING ---
Distilled water added to CPAP. Mask applied and operating for hs.
[2022-02-16] MEDS: Nystatin Powder 15gm Bottle 1 APPLIC TOPICAL ×2 (06:07→22:21)
[2022-02-16] MEDS: Arthritis Pain Compound 60 CLICK TUBE TOPICAL ×7 (06:08→22:20)
[2022-02-16] MEDS: Menthol/Lanolin/Calamine/Znox 113 GM Tube 1 APPLIC TOPICAL ×2 (06:09→22:21)
[2022-02-16 07:00] LABS: Bedside Glucose 102 mg/dL (74-106)
[2022-02-16] MEDS: Furosemide 40 MG Tablet PO ×2 (08:10→16:50)
[2022-02-16] MEDS: SACUBITRIL/VALSARTAN 24/26 MG TABLET 1 EACH PO ×2 (08:10→22:20)
[2022-02-16] MEDS: amLODIPine 2.5 MG Tablet PO ×3 (08:10→14:44)
[2022-02-16] MEDS: Carvedilol 6.25 MG Tablet PO ×2 (08:10→22:21)
[2022-02-16] MEDS: Empagliflozin 25 MG Tablet PO (08:11)
[2022-02-16] MEDS: APIXABAN 5 MG TABLET PO ×2 (08:11→22:20)
[2022-02-16] MEDS: Senna/Docusate Sodium 1 Tablet 2 TABLET PO ×2 (08:11→22:20)
[2022-02-16] MEDS: Venlafaxine XR 150 MG Capsule PO (08:11)
[2022-02-16] MEDS: Aspirin 81 MG TAB.CHEW PO (08:11)
[2022-02-16] MEDS: Potassium Chloride Oral Tablet 20 MEQ PO (08:11)
[2022-02-16] MEDS: Spironolactone 25 MG Tablet PO (08:11)
[2022-02-16] MEDS: Amiodarone 200 MG Tablet PO (08:11)
[2022-02-16] MEDS: metFORMIN HCl 500 MG Tablet PO ×2 (08:12→16:50)
[2022-02-16 08:25] VITALS: BP 148/71; PULSE 64; RESP 16; TEMP 36.4; O2SAT 100
[2022-02-16 09:32] VITALS: PULSE 64; RESP 18; O2SAT 100
[2022-02-16 09:37] VITALS: BMI 52.4
[2022-02-16 14:43] VITALS: BP 124/70; PULSE 76
[2022-02-16 16:45] LABS: Bedside Glucose 115 mg/dL (74-106)
[2022-02-16 21:06] VITALS: BP 124/70; PULSE 76; RESP 14; TEMP 36.2; O2SAT 98
[2022-02-16] MEDS: Potassium Chloride Oral Tablet 10 MEQ PO (22:19)
[2022-02-16 22:38] VITALS: PULSE 68; RESP 21; O2SAT 99
[2022-02-17 03:07] VITALS: BMI 52.4
[2022-02-17 06:00] LABS: Hematocrit 42.3 % (37-47); Hemoglobin 13.9 g/dL (12.0-15.0)
[2022-02-17] MEDS: Arthritis Pain Compound 60 CLICK TUBE TOPICAL ×4 (06:27→14:51)
[2022-02-17] MEDS: Menthol/Lanolin/Calamine/Znox 113 GM Tube 1 APPLIC TOPICAL ×2 (06:29→21:14)
[2022-02-17 06:30] LABS: Bedside Glucose 113 mg/dL (74-106)
[2022-02-17] MEDS: Nystatin Powder 15gm Bottle 1 APPLIC TOPICAL ×2 (06:30→21:16)
[2022-02-17 07:03] LABS: Anion Gap 7 (5-15); BUN 28 mg/dL (7-18); BUN/Creat Ratio 23.5 RATIO (10-20); Calcium,Total 9.1 mg/dL (8.5-10.1); Chloride 103 mmol/L (98-107); Creatinine, Serum 1.19 mg/dL (0.55-1.02); EST Glomerular Filtration Rate 50 mL/min (>60); Est Glom Filt Rate - Afr Amer 61 mL/min (>60); Estimated Creatinine Clearance 48.63 ml/min; Glucose 102 mg/dL (74-106); Magnesium 2.1 mg/dL (1.6-2.6); Potassium 3.5 mmol/L (3.5-5.1); Sodium Level 137 mmol/L (136-145)
[2022-02-17 07:27] VITALS: BP 107/46; PULSE 59; RESP 18; TEMP 35.9; O2SAT 100
[2022-02-17] MEDS: APIXABAN 5 MG TABLET PO ×2 (07:41→21:15)
[2022-02-17] MEDS: Potassium Chloride Oral Tablet 20 MEQ PO (07:41)
[2022-02-17] MEDS: Furosemide 40 MG Tablet PO ×2 (07:41→18:22)
[2022-02-17] MEDS: Venlafaxine XR 150 MG Capsule PO (07:42)
[2022-02-17] MEDS: Empagliflozin 25 MG Tablet PO (07:42)
[2022-02-17] MEDS: SACUBITRIL/VALSARTAN 24/26 MG TABLET 1 EACH PO ×2 (07:42→21:15)
[2022-02-17] MEDS: Aspirin 81 MG TAB.CHEW PO (07:42)
[2022-02-17] MEDS: metFORMIN HCl 500 MG Tablet PO ×2 (07:42→18:22)
[2022-02-17] MEDS: Carvedilol 6.25 MG Tablet PO ×2 (07:42→21:15)
[2022-02-17] MEDS: Amiodarone 200 MG Tablet PO (07:43)
[2022-02-17] MEDS: Spironolactone 25 MG Tablet PO (07:43)
[2022-02-17] MEDS: amLODIPine 5 MG Tablet PO (07:43)
[2022-02-17 16:14] VITALS: BMI 52.4
[2022-02-17 17:16] LABS: Bedside Glucose 128 mg/dL (74-106)
[2022-02-17 20:18] VITALS: BP 114/63; PULSE 69; RESP 16; TEMP 36.4; O2SAT 99
[2022-02-17 21:01] VITALS: PULSE 65; RESP 18; O2SAT 96
[2022-02-17] MEDS: Potassium Chloride Oral Tablet 10 MEQ PO (21:13)
[2022-02-18 02:31] VITALS: BMI 52.4
[2022-02-18 03:05] VITALS: PULSE 69; RESP 17; O2SAT 94
[2022-02-18] MEDS: Nystatin Powder 15gm Bottle 1 APPLIC TOPICAL ×2 (06:34→21:05)
[2022-02-18] MEDS: Menthol/Lanolin/Calamine/Znox 113 GM Tube 1 APPLIC TOPICAL ×2 (06:35→21:04)
[2022-02-18 06:46] LABS: Bedside Glucose 101 mg/dL (74-106)
[2022-02-18] MEDS: Potassium Chloride Oral Tablet 20 MEQ PO (07:51)
[2022-02-18] MEDS: Amiodarone 200 MG Tablet PO (07:51)
[2022-02-18] MEDS: APIXABAN 5 MG TABLET PO ×2 (07:51→21:05)
[2022-02-18] MEDS: Senna/Docusate Sodium 1 Tablet 2 TABLET PO (07:52)
[2022-02-18] MEDS: SACUBITRIL/VALSARTAN 24/26 MG TABLET 1 EACH PO ×2 (07:52→21:05)
[2022-02-18] MEDS: Venlafaxine XR 150 MG Capsule PO (07:52)
[2022-02-18] MEDS: Empagliflozin 25 MG Tablet PO (07:52)
[2022-02-18] MEDS: Spironolactone 25 MG Tablet PO (07:52)
[2022-02-18] MEDS: Furosemide 40 MG Tablet PO ×2 (07:52→16:38)
[2022-02-18] MEDS: metFORMIN HCl 500 MG Tablet PO ×2 (07:52→16:38)
[2022-02-18] MEDS: Aspirin 81 MG TAB.CHEW PO (07:53)
[2022-02-18] MEDS: Carvedilol 6.25 MG Tablet PO ×2 (07:55→21:04)
[2022-02-18] MEDS: Arthritis Pain Compound 60 CLICK TUBE TOPICAL ×6 (07:56→21:09)
[2022-02-18] MEDS: amLODIPine 5 MG Tablet PO (07:56)
[2022-02-18 08:00] VITALS: BP 122/65; PULSE 61; RESP 20; TEMP 36.3; O2SAT 97
[2022-02-18 15:41] VITALS: BMI 52.4
[2022-02-18 16:46] LABS: Bedside Glucose 110 mg/dL (74-106)
[2022-02-18 20:17] VITALS: BP 114/85; PULSE 68; RESP 16; TEMP 36.7; O2SAT 98
[2022-02-18] MEDS: Potassium Chloride Oral Tablet 10 MEQ PO (21:03)
[2022-02-18 22:40] VITALS: PULSE 67; RESP 17; O2SAT 95
[2022-02-19 03:07] VITALS: BMI 52.4
--- NOTE | 2022-02-19 04:11 | NURSING ---
REVIEWED AND AGREE WITH INSTRUMENT MAKER'S FUNCTIONAL ASSESSMENT AND HANDOFF CHARTING.
[2022-02-19 04:41] VITALS: PULSE 68; RESP 18; O2SAT 95
[2022-02-19] MEDS: Arthritis Pain Compound 60 CLICK TUBE TOPICAL ×7 (05:50→20:32)
[2022-02-19] MEDS: Nystatin Powder 15gm Bottle 1 APPLIC TOPICAL ×2 (05:51→20:29)
[2022-02-19] MEDS: Menthol/Lanolin/Calamine/Znox 113 GM Tube 1 APPLIC TOPICAL ×2 (05:52→20:27)
[2022-02-19 05:56] LABS: Bedside Glucose 105 mg/dL (74-106)
[2022-02-19 08:30] VITALS: BP 121/55; PULSE 60; RESP 19; TEMP 36; O2SAT 98
[2022-02-19] MEDS: Venlafaxine XR 150 MG Capsule PO (08:44)
[2022-02-19] MEDS: Furosemide 40 MG Tablet PO ×2 (08:45→17:11)
[2022-02-19] MEDS: Potassium Chloride Oral Tablet 20 MEQ PO (08:45)
[2022-02-19] MEDS: Carvedilol 6.25 MG Tablet PO ×2 (08:45→20:28)
[2022-02-19] MEDS: Empagliflozin 25 MG Tablet PO (08:45)
[2022-02-19] MEDS: Amiodarone 200 MG Tablet PO (08:45)
[2022-02-19] MEDS: Aspirin 81 MG TAB.CHEW PO (08:45)
[2022-02-19] MEDS: amLODIPine 5 MG Tablet PO (08:45)
[2022-02-19] MEDS: APIXABAN 5 MG TABLET PO ×2 (08:49→20:28)
[2022-02-19] MEDS: metFORMIN HCl 500 MG Tablet PO ×2 (08:51→17:11)
[2022-02-19] MEDS: Spironolactone 25 MG Tablet PO (08:51)
[2022-02-19] MEDS: SACUBITRIL/VALSARTAN 24/26 MG TABLET 1 EACH PO ×2 (14:54→20:28)
[2022-02-19 16:16] VITALS: BMI 52.4
[2022-02-19 16:16] LABS: Bedside Glucose 112 mg/dL (74-106)
[2022-02-19] MEDS: Potassium Chloride Oral Tablet 10 MEQ PO (20:26)
[2022-02-19] MEDS: Senna/Docusate Sodium 1 Tablet 2 TABLET PO (20:33)
[2022-02-19 20:40] VITALS: BP 106/70; PULSE 69; RESP 16; TEMP 36.6; O2SAT 98
[2022-02-20 00:57] VITALS: PULSE 64; RESP 18; O2SAT 94
[2022-02-20 01:44] VITALS: BMI 52.4
[2022-02-20] MEDS: Menthol/Lanolin/Calamine/Znox 113 GM Tube 1 APPLIC TOPICAL ×2 (06:00→20:22)
[2022-02-20] MEDS: Nystatin Powder 15gm Bottle 1 APPLIC TOPICAL ×2 (06:01→20:22)
[2022-02-20 06:10] LABS: Bedside Glucose 122 mg/dL (74-106)
[2022-02-20 07:30] VITALS: BP 115/60; PULSE 60; RESP 18; TEMP 36.2; O2SAT 98
[2022-02-20] MEDS: Furosemide 40 MG Tablet PO (08:16)
[2022-02-20] MEDS: Amiodarone 200 MG Tablet PO (08:16)
[2022-02-20] MEDS: metFORMIN HCl 500 MG Tablet PO ×2 (08:16→17:26)
[2022-02-20] MEDS: Aspirin 81 MG TAB.CHEW PO (08:16)
[2022-02-20] MEDS: Potassium Chloride Oral Tablet 20 MEQ PO (08:16)
[2022-02-20] MEDS: Empagliflozin 25 MG Tablet PO (08:16)
[2022-02-20] MEDS: Spironolactone 25 MG Tablet PO (08:17)
[2022-02-20] MEDS: APIXABAN 5 MG TABLET PO ×2 (08:19→20:30)
[2022-02-20] MEDS: Carvedilol 6.25 MG Tablet PO ×2 (08:20→20:20)
[2022-02-20] MEDS: amLODIPine 5 MG Tablet PO (08:20)
[2022-02-20] MEDS: SACUBITRIL/VALSARTAN 24/26 MG TABLET 1 EACH PO ×2 (08:20→20:21)
[2022-02-20] MEDS: Venlafaxine XR 150 MG Capsule PO (08:21)
[2022-02-20] MEDS: Arthritis Pain Compound 60 CLICK TUBE TOPICAL ×5 (08:24→20:21)
--- NOTE | 2022-02-20 10:50 | PCM.PROGNOTE ---
Subjective Subjective Mylene was seen on TEAM rounds today. No family was available to participate. Afebrile VSS-blood pressure is within goal consistently. HR is WNL and well controlled. Maintaining appropriate oxygen saturation on RA Oral intake is good Wt is up 1 and 1/2 pounds since last Sunday. Discussed with nursing - no problems that need addressed Reviewed the PT/OT/ST notes Medication list reviewed. The blood sugar record was reviewed. Blood sugars under excellent control with no hypoglycemia. Mylene denies chest pain, shortness of breath, palpitations, lightheadedness, nausea/vomiting/abdominal pain/abdominal cramping, dysuria. She tells me that she is still sleeping well at night. She is discouraged about her wt going up 2 pounds but, I told her the weights are often not reliable and she told me that the same WC she has been getting weighed in weighed more today. Objective Data Objective Data Vital Signs: Vital Signs Temp Pulse Resp BP Pulse Ox 97.2 F L 60 18 115/60 98 02/20/22 07:30 02/20/22 07:30 02/20/22 07:30 02/20/22 07:30 02/20/22 07:30 Oxygen Flow Rate (L/min) 2 Oxygen Delivery Method Room Air Weight: 313 lb 7.957 oz Body Mass Index (BMI) 52.4 Intake & Output: Intake and Output for Last 24 Hours 02/18/22 02/19/22 02/20/22 23:59 23:59 23:59 Intake Total 960 / 960 600 / 600 Balance 960 / 960 600 / 600 Lab / Micro Data Result Diagrams: 02/17/22 05:50 02/17/22 05:50 Labs: Laboratory Results - last 24 hr 02/19/22 16:11: POC Glucose 112 H 02/20/22 05:55: POC Glucose 122 H Micro: Microbiology 02/10/22 09:15 Stool Stool Occult Blood (AMY) - Final Occult Blood Positive Physical Exam Const alert, oriented x3 and no apparent distress Constitutional Narrative: Smiling a lot and laughing. Appears happy. Continues to work very hard in therapy and she is making excellent progress. therapy is ready to start trying sairs with her. General Appearance: cooperative and comfortable HEENT moist oral mucous membranes Eyes PERRL, EOMs intact bilaterally, conjunctivae normal and no scleral icterus Resp normal respiratory effort, normal air movement and clear to auscultation bilaterally Resp Narrative: Mildly diminished in the bases but no rales and no wheezes. Effort and Inspection: able to speak in complete sentences Cardio regular rate, regular rhythm, no murmurs and no gallops GI normal to inspection, nondistended, normoactive bowel sounds, soft to palpation and non-tender Extremity Extremity Narrative: no pretibial edema and the ANDRES wraps are in place. Skin no wounds General Skin Exam: no breakdown Rashes: no rashes Psych activity/motor behavior normal, denies hallucinations, denies homicidal ideation and denies suicidal ideation Appearance: grossly normal Attitude: calm Activity / Motor Behavior: appropriate eye contact Speech: normal speech Mood & Affect: euthymic mood Thought Process: normal thought process Attention / Concentration: attention grossly intact and concentration grossly intact Assessment & Plan Assessment/Plan (1) Embolic cerebral infarction: PLAN: Continue PT/OT/ST. Mylene is progressing very well and working hard. I initially thought she would need to go to an SNF post rehab but, she has done so well that I think within another 2 weeks she could go home to her sister's home. Her sister works at home and can provide 24/7 supervision. There are 3 platform steps to enter the house and she everything she needs (bedroom/bathroom) is on the first floor. Her sister and her will come in for family to learn how to assist Mylene prior to DC. I am hopeful that this plan will work because I think she would have an exacerbation of depression and a setback if she had to go to a SNF. (2) Atrial fibrillation: QUALIFIERS: Atrial fibrillation type: persistent (not longstanding) Qualified Code(s): I48.19 - Other persistent atrial fibrillation PLAN: rate is controlled well (3) Tachycardia induced cardiomyopathy: PLAN: Continue Entresto. Decrease the Lasix to once a day. She is now compliant with a low salt diet and she has clear lungs with no crackles and essentially no edema in the legs. Recheck BMP in 1 week and keep track of the weight. Change the weight to every 72 hours. (4) Chronic anticoagulation: PLAN: Continue Eliquis. The factor XI activity is within the therapeutic window. 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 (7) Right hemiparesis: (8) Dysarthria: PLAN: Speech is clear and understandable. She projects well and there is modulation to her voice. (9) Depression: QUALIFIERS: Depression Type: reactive depression Qualified Code(s): F32.9 - Major depressive disorder, single episode, unspecified PLAN: Much improved on Effexor XR. She is happy and smiling and sticking to the diet. she is smiling and conversant and outgoing now. Attention and concentration are better. she is happy about her progress and hopeful that she can go home from rehab. She was babysitting her granddaughter Lizabeth on a regular basis prior to the stroke and is very much looking forward to seeing Lizabeth again. They are very close. Will continue the Effexor at DC for AT least 6 months. I encouraged her to get psychotherapy to learn how to control her food addiction and the change in her abilities to be independent due to the stroke. Her family is very supportive. (10) Sleep disorder breathing: PLAN: Needs a formal sleep study post DC and follow up with pulmonary. (11) Diabetes mellitus, type 2: QUALIFIERS: Diabetes mellitus terminal makeup operator insulin use: without alf use Diabetes mellitus complication status: with circulatory complication Diabetes mellitus complication detail: with other circulatory complications Qualified Code(s): E11.59 - Type 2 diabetes mellitus with other circulatory complications PLAN: Excellent control.......Continue Jardiance and Glucophage. Charges/Coding Visit Charges Inpatient E&M: 82052 Subs Hosp L2
[2022-02-20 12:49] VITALS: BMI 52.4
--- NOTE | 2022-02-20 14:24 | CASEMGMT ---
Social Work IDT met with patient for Team meeting. Discussed patient's progress in PT/OT/ST and nursing. Pt progressing well. Explained insurance NRD 02/21 and continued stay is not guaranteed. Pt is progressing well enough that her sister would like to be able to take her home to her house. Offered therapy training for sister and her to ensure they can care for pt. Sister runs an in-home daycare, and can come on Saturdays. drives truck and gets off work about 1 pm daily. Pt to ask them for training. Sister's home has 3 steps to enter but is on one floor and accessible for pt. SW to await outcome of therapy training before canceling referral to [facility]. SW to continue to follow. STACY HunterW
[2022-02-20 17:45] LABS: Bedside Glucose 110 mg/dL (74-106)
[2022-02-20] MEDS: Potassium Chloride Oral Tablet 10 MEQ PO (20:20)
[2022-02-20] MEDS: Senna/Docusate Sodium 1 Tablet 2 TABLET PO (20:23)
[2022-02-20 21:19] VITALS: BMI 52.4
[2022-02-20 22:00] VITALS: BP 123/82; PULSE 74; RESP 16; TEMP 36.6
[2022-02-20 22:11] LABS: Bedside Glucose 122 mg/dL (74-106)
[2022-02-21 00:34] VITALS: PULSE 53; RESP 16; O2SAT 96
--- NOTE | 2022-02-21 03:00 | NURSING ---
Reviewed and agree with REFLOW OPERATOR documentation and assessment charting.
[2022-02-21] MEDS: Nystatin Powder 15gm Bottle 1 APPLIC TOPICAL ×2 (05:29→22:31)
[2022-02-21] MEDS: Menthol/Lanolin/Calamine/Znox 113 GM Tube 1 APPLIC TOPICAL ×2 (05:40→22:31)
[2022-02-21 05:55] LABS: Anion Gap 7 (5-15); BUN 26 mg/dL (7-18); BUN/Creat Ratio 24.5 RATIO (10-20); Calcium,Total 9.1 mg/dL (8.5-10.1); Chloride 100 mmol/L (98-107); Creatinine, Serum 1.06 mg/dL (0.55-1.02); EST Glomerular Filtration Rate 57 mL/min (>60); Est Glom Filt Rate - Afr Amer 69 mL/min (>60); Glucose 95 mg/dL (74-106); Potassium 3.6 mmol/L (3.5-5.1); Sodium Level 136 mmol/L (136-145)
[2022-02-21 06:50] LABS: Bedside Glucose 111 mg/dL (74-106)
[2022-02-21 07:34] VITALS: BP 132/73; PULSE 76; RESP 16; TEMP 36; O2SAT 95
[2022-02-21] MEDS: Aspirin 81 MG TAB.CHEW PO (07:48)
[2022-02-21] MEDS: metFORMIN HCl 500 MG Tablet PO ×2 (07:48→17:12)
[2022-02-21] MEDS: Venlafaxine XR 150 MG Capsule PO (09:14)
[2022-02-21] MEDS: Amiodarone 200 MG Tablet PO (09:14)
[2022-02-21] MEDS: Potassium Chloride Oral Tablet 20 MEQ PO ×2 (09:14→22:29)
[2022-02-21] MEDS: Carvedilol 6.25 MG Tablet PO ×2 (09:14→22:28)
[2022-02-21] MEDS: APIXABAN 5 MG TABLET PO ×2 (09:14→22:28)
[2022-02-21] MEDS: SACUBITRIL/VALSARTAN 24/26 MG TABLET 1 EACH PO ×2 (09:14→22:28)
[2022-02-21] MEDS: Spironolactone 25 MG Tablet PO (09:14)
[2022-02-21] MEDS: amLODIPine 5 MG Tablet PO (09:15)
[2022-02-21] MEDS: Furosemide 40 MG Tablet PO (09:15)
[2022-02-21] MEDS: Empagliflozin 25 MG Tablet PO (09:15)
[2022-02-21] MEDS: Arthritis Pain Compound 60 CLICK TUBE TOPICAL ×6 (09:16→22:30)
[2022-02-21 09:37] VITALS: BMI 52.4
[2022-02-21 17:30] LABS: Bedside Glucose 127 mg/dL (74-106)
--- NOTE | 2022-02-21 18:01 | PN_ITS ---
Subjective Subjective Afebrile VSS-blood pressure is well controlled. Maintaining appropriate oxygen saturation on RA Oral intake is good Discussed with nursing - no problems that need addressed Reviewed the PT/OT/ST notes - she continues to make progress. she has been approved until 02/28/22 by her insurance company and I am hopeful we can get her home with her sister and [id number] at that time. They are coming in for family training this coming weekend. Medication list reviewed. Blood sugars remain in excellent control. All lab was personally reviewed. Potassium is 3.6. BUN is high at 26 with a creatinine of 1.06 and this is stable. She is taking Lasix 40 mg daily for hx of CM with decreased EF due to tachycardia induced CM from uncontrolled AF. Mylene has no complaints today. She is sleeping very well and feels her mood is much better than it was even prior to the stroke. Blood sugars are well controlled on Jardiance and metformin. She denies chest pain, orthopnea, dyspnea on exertion, palpitations, lightheadedness, abdominal pain, dysuria, calf pain. She denies any bleeding from her gums, nose or anus. Objective Data Objective Data Vital Signs: Vital Signs Temp Pulse Resp BP Pulse Ox 96.8 F L 76 16 132/73 H 95 02/21/22 07:34 02/21/22 07:34 02/21/22 07:34 02/21/22 07:34 02/21/22 07:34 Oxygen Flow Rate (L/min) 2 Oxygen Delivery Method Room Air Weight: 313 lb 7.957 oz Body Mass Index (BMI) 52.4 Intake & Output: Intake and Output for Last 24 Hours 02/19/22 02/20/22 02/21/22 23:59 23:59 23:59 Intake Total 600 / 600 1040 / 1040 Balance 600 / 600 1040 / 1040 Lab / Micro Data Result Diagrams: 02/17/22 05:50 02/21/22 05:28 Labs: Laboratory Results - last 24 hr 02/20/22 21:57: POC Glucose 122 H 02/21/22 05:28: Sodium 136, Potassium 3.6, Chloride 100, Carbon Dioxide 29.0, Anion Gap 7, BUN 26 H, Creatinine 1.06 H, Estim Creat Clear Calc 54.60, Est GFR (MDRD) Af Amer 69, Est GFR (MDRD) Non-Af 57 L, BUN/Creatinine Ratio 24.5 H, Gl ucose 95, Calcium 9.1 02/21/22 05:59: POC Glucose 111 H 02/21/22 17:06: POC Glucose 127 H Micro: Microbiology 02/10/22 09:15 Stool Stool Occult Blood (AMY) - Final Occult Blood Positive Physical Exam Const alert, oriented x3 and no apparent distress General Appearance: cooperative Eyes PERRL and EOMs intact bilaterally Neck no carotid bruits Lymph Lymphatic: no lymphedema noted Resp normal respiratory effort and clear to auscultation bilaterally Resp Narrative: able to speak in complete sentences Cardio regular rate, regular rhythm and no gallops GI normal to inspection, nondistended, normoactive bowel sounds, soft to palpation and non-tender Palpation: Negative for guarding Extremity Extremity Narrative: ANDRES wraps are providing enough compression to control the edema in the legs related to venous insufficiency. There is barely a trace of ankle edema now. General Extremity: Negative for clubbing or cyanosis Skin General Skin Exam: no breakdown Rashes: No rashes noted Wounds: Negative for wounds noted Neuro Neuro Narrative: still with a R facial droop but much better than at admission. Ambulating with a HW now. She has a brace on the left knee. She is able to maneuver the WC by herself now.....occasional min assist at corner when turning R around the corner. Psych thought process normal, cooperative, affect normal and denies suicidal ideation Appearance: appropriate Attitude: No agitated Mood & Affect: Negative for depressed or anxious Thought Content: No suicidality Assessment & Plan Assessment/Plan (1) Embolic cerebral infarction: PLAN: Continue PT/OT/ST Continue Eliquis 5 mg p.o. twice daily. Factor X inhibitory activity is therapeutic. Not on a lipid lowering agent when she came to us. LDL was less than 50 and she has not been on a statin. She had multiple BL cerebral embolic infarctions on the CT at [facility]. No LVO on CTA (2) Physical debility: PLAN: Continue therapy. She is making excellent progress. Family coming in on Sunday for family training. (3) Right hemiparesis: PLAN: ambulating with a HW now and is proficient at maneuvering the WC. 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 twice daily (7) Diabetes mellitus, type 2: QUALIFIERS: Diabetes mellitus oysterman insulin use: without [facility] use Diabetes mellitus complication status: with circulatory complication Diabetes mellitus complication detail: with other circulatory complications Qualified Code(s): E11.59 - Type 2 diabetes mellitus with other circulatory complications PLAN: Under excellent control currently. She understands the carb controlled diet and is motivated to lose weight. We will continue Jardiance 25 mg and Glucophage 500 mg twice daily. (8) Sleep disorder breathing: PLAN: currently good on the hospital's CPAP unit. will send home with oxygen and get her scheduled for a formal sleep study and then follow up with pulmonary (9) Depression: QUALIFIERS: Depression Type: reactive depression Qualified Code(s): F32.9 - Major depressive disorder, single episode, unspecified PLAN: Much improved with Effexor XR 150 mg daily. I think this is also helping with the chronic knee and back pain as well as she has not c/o pain for quite some time. Plan on continuing this at [place]. Charges/Coding Visit Charges Inpatient E&M: 58529 Subs Hosp L2
[2022-02-21 22:25] VITALS: BP 110/42; PULSE 62; RESP 18; TEMP 36.1; O2SAT 98
[2022-02-21] MEDS: Senna/Docusate Sodium 1 Tablet 2 TABLET PO (22:29)
[2022-02-22 00:45] VITALS: PULSE 58; RESP 16; O2SAT 98
[2022-02-22] MEDS: Arthritis Pain Compound 60 CLICK TUBE TOPICAL ×7 (05:28→21:09)
[2022-02-22] MEDS: Nystatin Powder 15gm Bottle 1 APPLIC TOPICAL ×2 (05:30→21:11)
[2022-02-22 07:21] LABS: Bedside Glucose 110 mg/dL (74-106)
[2022-02-22 08:03] VITALS: BP 110/51; PULSE 69; RESP 18; TEMP 36; O2SAT 94
[2022-02-22] MEDS: APIXABAN 5 MG TABLET PO ×2 (09:16→21:09)
[2022-02-22] MEDS: Aspirin 81 MG TAB.CHEW PO (09:16)
[2022-02-22] MEDS: SACUBITRIL/VALSARTAN 24/26 MG TABLET 1 EACH PO ×2 (09:16→21:09)
[2022-02-22] MEDS: Spironolactone 25 MG Tablet PO (09:16)
[2022-02-22] MEDS: Carvedilol 6.25 MG Tablet PO ×2 (09:16→21:09)
[2022-02-22] MEDS: Furosemide 40 MG Tablet PO (09:16)
[2022-02-22] MEDS: Amiodarone 200 MG Tablet PO (09:16)
[2022-02-22] MEDS: metFORMIN HCl 500 MG Tablet PO ×2 (09:16→17:04)
[2022-02-22] MEDS: Potassium Chloride Oral Tablet 20 MEQ PO ×2 (09:16→21:08)
[2022-02-22] MEDS: amLODIPine 5 MG Tablet PO (09:16)
[2022-02-22] MEDS: Empagliflozin 25 MG Tablet PO (09:17)
[2022-02-22] MEDS: Senna/Docusate Sodium 1 Tablet 2 TABLET PO (09:17)
[2022-02-22] MEDS: Venlafaxine XR 150 MG Capsule PO (09:17)
--- NOTE | 2022-02-22 10:38 | PN_ITS ---
Subjective Subjective Afebrile VSS-blood pressure is under excellent control. She has been primarily in sinus rhythm and the heart rate is within normal limits. Maintaining appropriate oxygen saturation on RA Oral intake is good Discussed with nursing - no problems that need addressed Reviewed the PT/OT/ST notes Medication list reviewed. Blood sugar record was reviewed and the blood sugars are under excellent control with no hypoglycemia. Mylene denies pain. She really has no complaints today. She specifically denies palpitations, lightheadedness, chest pain, shortness of breath. She was allowed to walk with a hemiwalker at [facility] with the R foot ANDRES wrapped into dorsiflexion. She felt anxious and felt this was much harder without someone advancing her R leg for her. She was able to walk 5 ft. She is consistently able to maneuver the WC without assist today and she tells me that her sister's is set up to accommodate WC access. She also was taken downstairs today and for the first time tried a curb step so that she can get in her sister's house. she has to be able to get up 3 platform steps to enter her sisters house.....the physical therapists tell me that she did pretty good and they think she will be able to accomplish 3 platform steps by [place]. She required assist of 2 today with the step. She is sleeping well and she is smiling and happy. She is excited about being able to live with her sister rather than having to go to an ECF and she can now see that this is indeed possible. She is sitting in the recliner and appears comfortable and in no distress. She is alert and oriented X 3, appropriate and smiling. PERRL, EOMI, no DC from the eyes and no scleral icterus Lungs - CTA, not tachypneic at rest HRRR, no ectopy, no gallop no calf pain and she has no edema today Affect is normal and she has had no adverse reactions to the Effexor. Impressions 1. Multiple embolic infarctions in both cerebral hemispheres while on Xarelto. She states she was compliant with the Xarelto. she was transitioned to Eliquis 5 mg BID and her Factor X I activity is therapeutic. She is progressing well in therapy and I monitor her progress daily while she is doing therapy. The plan is for home with her sister at [place] and [facility] for PT/OT//SN. Continue to work on getting up 3 platform stairs to gain entry into the house. She was discharged from [facility] on 02/10/22 since she was doing so well and has been spending 90 minutes with Pt and 90 minutes with OT a day since then. 2. AF - has been in SR with a normal HR consistently. She will follow up with cardiology. Continue amiodarone and carvedilol. 3. CHF - she is stable on the current medications and the lungs are CTA and she has no edema. Ne need to change the medications at this time. If she stays rate controlled may consider repeating a ECHO in 6 months to see if the EF has improved with control of HR. 4. DM II - excellent control and she is adhering to the diet with no snacking. Will continue the Jardiance and Glucophage. Decrease the accuchecks to daily in the AM 5. Depression - much improved. will continue the Effexor at [place] and she will plan on taking it for at least 6 months post DC. I also encouraged her to consider psychotherapy to learn how to accept her disabilities and move forward.......she was depressed even prior to the stroke and she has never had counselling in the past. 6. HTN - good control. Continue the current Drug regimen and continue to monitor the BP BID. 7. Check B12, folate, CBC and a BMP on Sunday AM. Objective Data Objective Data Vital Signs: Vital Signs Temp Pulse Resp BP Pulse Ox 96.8 F L 69 18 110/51 L 94 02/22/22 08:03 02/22/22 08:03 02/22/22 08:03 02/22/22 08:03 02/22/22 08:03 Oxygen Flow Rate (L/min) 2 Oxygen Delivery Method Room Air Weight: 313 lb 7.957 oz Body Mass Index (BMI) 52.4 Intake & Output: Intake and Output for Last 24 Hours 02/20/22 02/21/22 02/22/22 23:59 23:59 23:59 Intake Total 1999 Balance 1999 Lab / Micro Data Result Diagrams: 02/17/22 05:50 02/21/22 05:28 Labs: Laboratory Results - last 24 hr 02/21/22 17:06: POC Glucose 127 H 02/22/22 06:21: POC Glucose 110 H Micro: Microbiology 02/10/22 09:15 Stool Stool Occult Blood (AMY) - Final Occult Blood Positive Charges/Coding Visit Charges Inpatient E&M: 31054 Subs Hosp L2
[2022-02-22 14:42] VITALS: BMI 52.4
[2022-02-22 16:56] LABS: Bedside Glucose 118 mg/dL (74-106)
[2022-02-22 19:50] VITALS: BP 114/60; PULSE 68; RESP 16; TEMP 36.1; O2SAT 99
[2022-02-22] MEDS: Menthol/Lanolin/Calamine/Znox 113 GM Tube 1 APPLIC TOPICAL (21:11)
[2022-02-23] VITALS: PULSE 58; RESP 16; O2SAT 95
[2022-02-23 00:58] VITALS: BMI 52.4
[2022-02-23] MEDS: Arthritis Pain Compound 60 CLICK TUBE TOPICAL ×7 (05:21→20:12)
[2022-02-23] MEDS: Nystatin Powder 15gm Bottle 1 APPLIC TOPICAL ×2 (05:38→20:12)
[2022-02-23] MEDS: Menthol/Lanolin/Calamine/Znox 113 GM Tube 1 APPLIC TOPICAL ×2 (05:39→20:12)
[2022-02-23 06:55] LABS: Bedside Glucose 106 mg/dL (74-106)
[2022-02-23 07:33] VITALS: BP 134/65; PULSE 58; RESP 18; TEMP 36.6; O2SAT 96
[2022-02-23] MEDS: metFORMIN HCl 500 MG Tablet PO ×2 (07:46→17:52)
[2022-02-23] MEDS: Carvedilol 6.25 MG Tablet PO ×2 (07:47→20:12)
[2022-02-23] MEDS: Aspirin 81 MG TAB.CHEW PO (07:47)
[2022-02-23] MEDS: Spironolactone 25 MG Tablet PO (07:47)
[2022-02-23] MEDS: Venlafaxine XR 150 MG Capsule PO (07:47)
[2022-02-23] MEDS: Amiodarone 200 MG Tablet PO (07:47)
[2022-02-23] MEDS: Empagliflozin 25 MG Tablet PO (07:48)
[2022-02-23] MEDS: APIXABAN 5 MG TABLET PO ×2 (07:48→20:12)
[2022-02-23] MEDS: SACUBITRIL/VALSARTAN 24/26 MG TABLET 1 EACH PO ×2 (07:48→20:12)
[2022-02-23] MEDS: amLODIPine 5 MG Tablet PO (07:49)
[2022-02-23] MEDS: Furosemide 40 MG Tablet PO (07:49)
[2022-02-23] MEDS: Potassium Chloride Oral Tablet 20 MEQ PO ×2 (07:49→20:10)
[2022-02-23 16:51] LABS: Bedside Glucose 106 mg/dL (74-106)
[2022-02-23 17:00] VITALS: BMI 52.4
[2022-02-23 19:30] VITALS: BP 125/65; PULSE 86; RESP 18; TEMP 36.2; O2SAT 96
[2022-02-23 22:37] VITALS: PULSE 54; RESP 16; O2SAT 95
[2022-02-23 22:43] VITALS: BMI 52.4
--- NOTE | 2022-02-24 01:49 | NURSING ---
Reviewed and agree with R D ENGINEER assessment.
[2022-02-24 03:10] VITALS: PULSE 55; RESP 16; O2SAT 95
[2022-02-24 06:30] LABS: Bedside Glucose 89 mg/dL (74-106)
[2022-02-24] MEDS: Nystatin Powder 15gm Bottle 1 APPLIC TOPICAL ×2 (06:35→21:14)
[2022-02-24] MEDS: Menthol/Lanolin/Calamine/Znox 113 GM Tube 1 APPLIC TOPICAL ×2 (06:35→21:14)
[2022-02-24 07:16] VITALS: BP 129/62; PULSE 60; RESP 19; TEMP 36; O2SAT 97
[2022-02-24] MEDS: Arthritis Pain Compound 60 CLICK TUBE TOPICAL ×7 (07:44→21:15)
[2022-02-24] MEDS: metFORMIN HCl 500 MG Tablet PO ×2 (07:45→17:00)
[2022-02-24] MEDS: Aspirin 81 MG TAB.CHEW PO (07:45)
[2022-02-24] MEDS: Spironolactone 25 MG Tablet PO (07:46)
[2022-02-24] MEDS: APIXABAN 5 MG TABLET PO ×2 (07:47→21:14)
[2022-02-24] MEDS: SACUBITRIL/VALSARTAN 24/26 MG TABLET 1 EACH PO ×2 (07:47→21:14)
[2022-02-24] MEDS: Carvedilol 6.25 MG Tablet PO ×2 (07:47→21:14)
[2022-02-24] MEDS: Amiodarone 200 MG Tablet PO (07:47)
[2022-02-24] MEDS: Venlafaxine XR 150 MG Capsule PO (07:47)
[2022-02-24] MEDS: Empagliflozin 25 MG Tablet PO (07:48)
[2022-02-24] MEDS: amLODIPine 5 MG Tablet PO (07:48)
[2022-02-24] MEDS: Potassium Chloride Oral Tablet 20 MEQ PO ×2 (07:48→21:15)
[2022-02-24] MEDS: Furosemide 40 MG Tablet PO (07:48)
[2022-02-24 09:40] VITALS: BMI 52.4
[2022-02-24 20:32] VITALS: BP 130/65; PULSE 71; RESP 18; TEMP 36.4; O2SAT 99
[2022-02-24] MEDS: Senna/Docusate Sodium 1 Tablet 2 TABLET PO (21:13)
[2022-02-24 22:20] VITALS: PULSE 60; RESP 17; O2SAT 97
[2022-02-25] MEDS: Arthritis Pain Compound 60 CLICK TUBE TOPICAL ×7 (06:51→21:29)
[2022-02-25] MEDS: Nystatin Powder 15gm Bottle 1 APPLIC TOPICAL ×2 (06:52→21:32)
[2022-02-25 07:25] LABS: Bedside Glucose 97 mg/dL (74-106)
[2022-02-25 07:30] VITALS: BP 109/54; PULSE 57; RESP 16; TEMP 36.3; O2SAT 98
[2022-02-25] MEDS: metFORMIN HCl 500 MG Tablet PO ×2 (08:07→17:19)
[2022-02-25] MEDS: Aspirin 81 MG TAB.CHEW PO (08:07)
[2022-02-25] MEDS: Spironolactone 25 MG Tablet PO (08:08)
[2022-02-25] MEDS: Amiodarone 200 MG Tablet PO (08:12)
[2022-02-25] MEDS: Carvedilol 6.25 MG Tablet PO ×2 (08:12→21:30)
[2022-02-25] MEDS: APIXABAN 5 MG TABLET PO ×2 (08:13→21:30)
[2022-02-25] MEDS: Venlafaxine XR 150 MG Capsule PO (08:13)
[2022-02-25] MEDS: Empagliflozin 25 MG Tablet PO (08:14)
[2022-02-25] MEDS: SACUBITRIL/VALSARTAN 24/26 MG TABLET 1 EACH PO ×2 (08:14→21:30)
[2022-02-25] MEDS: Potassium Chloride Oral Tablet 20 MEQ PO ×2 (08:15→21:28)
[2022-02-25] MEDS: Furosemide 40 MG Tablet PO (08:16)
[2022-02-25] MEDS: amLODIPine 5 MG Tablet PO (08:16)
[2022-02-25] MEDS: Senna/Docusate Sodium 1 Tablet 2 TABLET PO ×2 (08:16→21:30)
[2022-02-25 15:34] VITALS: BMI 52.4
[2022-02-25 19:38] VITALS: BMI 52.4
[2022-02-25 20:07] VITALS: BP 166/58; PULSE 55; RESP 16; TEMP 36.1; O2SAT 98
[2022-02-25] MEDS: Menthol/Lanolin/Calamine/Znox 113 GM Tube 1 APPLIC TOPICAL (21:32)
[2022-02-25 21:42] VITALS: PULSE 64; RESP 16; O2SAT 98
[2022-02-25 22:00] VITALS: RESP 17; O2SAT 97
[2022-02-26] MEDS: Nystatin Powder 15gm Bottle 1 APPLIC TOPICAL ×2 (05:54→19:33)
[2022-02-26] MEDS: Arthritis Pain Compound 60 CLICK TUBE TOPICAL ×7 (06:06→19:30)
[2022-02-26 07:00] LABS: Bedside Glucose 106 mg/dL (74-106)
[2022-02-26 07:30] VITALS: BP 122/74; PULSE 60; RESP 17; TEMP 36.2; O2SAT 97
[2022-02-26] MEDS: Furosemide 40 MG Tablet PO (08:31)
[2022-02-26] MEDS: amLODIPine 5 MG Tablet PO (08:31)
[2022-02-26] MEDS: metFORMIN HCl 500 MG Tablet PO ×2 (08:32→18:23)
[2022-02-26] MEDS: SACUBITRIL/VALSARTAN 24/26 MG TABLET 1 EACH PO ×2 (08:32→19:35)
[2022-02-26] MEDS: Carvedilol 6.25 MG Tablet PO ×2 (08:32→19:33)
[2022-02-26] MEDS: APIXABAN 5 MG TABLET PO ×2 (08:32→19:34)
[2022-02-26] MEDS: Aspirin 81 MG TAB.CHEW PO (08:32)
[2022-02-26] MEDS: Spironolactone 25 MG Tablet PO (08:37)
[2022-02-26] MEDS: Amiodarone 200 MG Tablet PO (08:37)
[2022-02-26] MEDS: Venlafaxine XR 150 MG Capsule PO (08:38)
[2022-02-26] MEDS: Potassium Chloride Oral Tablet 20 MEQ PO ×2 (08:38→19:32)
[2022-02-26] MEDS: Empagliflozin 25 MG Tablet PO (08:39)
[2022-02-26 13:06] VITALS: BMI 52.4
[2022-02-26 19:11] VITALS: BP 121/85; PULSE 67; RESP 17; TEMP 36.7; O2SAT 97
[2022-02-26] MEDS: Menthol/Lanolin/Calamine/Znox 113 GM Tube 1 APPLIC TOPICAL (19:32)
[2022-02-26 20:22] VITALS: RESP 17; BMI 52.4
[2022-02-26 21:56] VITALS: PULSE 60; RESP 18; O2SAT 97
--- NOTE | 2022-02-27 04:33 | NURSING ---
REVIEWED AND AGREE WITH ENGINEER TECHNICAL STAFF DOCUMENTATION AND ASSESSMENT CHECKING.
[2022-02-27] MEDS: Nystatin Powder 15gm Bottle 1 APPLIC TOPICAL ×2 (05:34→20:26)
[2022-02-27 05:56] LABS: Hematocrit 41.7 % (37-47); Hemoglobin 13.8 g/dL (12.0-15.0); Mean Corp Hgb Conc 33.1 g/dL (32-36); Mean Corpuscular Hgb 27.3 pg (27.0-32.0); Mean Corpuscular Volume 82.4 fL (81-99); Mean Platelet Vol. 9.9 fl (6.2-12.0); POSITIVE MORPHOLOGY YES; Platelet Count 326 K/mm3 (150-450); RBC Distribution Width CV 20.1 % (11.6-14.6); RBC Distribution Width SD 60.1 fl (35.1-43.9); Red Blood Count 5.06 M/mm3 (4.2-5.4); White Blood Count 6.3 K/mm3 (4.4-11.0)
[2022-02-27 06:01] LABS: Bedside Glucose 110 mg/dL (74-106)
[2022-02-27 06:03] LABS: Scan Indicated on CBC? Y/N YES- FLAGS NOTED
[2022-02-27 06:44] LABS: Anion Gap 7 (5-15); BUN 18 mg/dL (7-18); BUN/Creat Ratio 18.1 RATIO (10-20); Calcium,Total 9.3 mg/dL (8.5-10.1); Chloride 105 mmol/L (98-107); Creatinine, Serum 0.99 mg/dL (0.55-1.02); EST Glomerular Filtration Rate 62 mL/min (>60); Est Glom Filt Rate - Afr Amer 75 mL/min (>60); Estimated Creatinine Clearance 58.46 ml/min; Glucose 101 mg/dL (74-106); Potassium 4.3 mmol/L (3.5-5.1); Sodium Level 138 mmol/L (136-145)
[2022-02-27 07:45] VITALS: BP 125/64; PULSE 60; RESP 18; TEMP 36.1; O2SAT 100
[2022-02-27 07:57] LABS: Vitamin B12 282 pg/mL (211-911)
[2022-02-27] MEDS: metFORMIN HCl 500 MG Tablet PO ×2 (08:32→16:55)
[2022-02-27] MEDS: Aspirin 81 MG TAB.CHEW PO (08:32)
[2022-02-27] MEDS: Arthritis Pain Compound 60 CLICK TUBE TOPICAL ×5 (08:33→20:25)
[2022-02-27] MEDS: Spironolactone 25 MG Tablet PO (08:33)
[2022-02-27] MEDS: SACUBITRIL/VALSARTAN 24/26 MG TABLET 1 EACH PO ×2 (08:34→20:24)
[2022-02-27] MEDS: APIXABAN 5 MG TABLET PO ×2 (08:34→20:24)
[2022-02-27] MEDS: Carvedilol 6.25 MG Tablet PO ×2 (08:34→20:24)
[2022-02-27] MEDS: Amiodarone 200 MG Tablet PO (08:34)
[2022-02-27] MEDS: Venlafaxine XR 150 MG Capsule PO (08:34)
[2022-02-27] MEDS: Senna/Docusate Sodium 1 Tablet 2 TABLET PO (08:35)
[2022-02-27] MEDS: Furosemide 40 MG Tablet PO (08:35)
[2022-02-27] MEDS: Potassium Chloride Oral Tablet 20 MEQ PO ×2 (08:35→20:24)
[2022-02-27] MEDS: Empagliflozin 25 MG Tablet PO (08:35)
[2022-02-27] MEDS: amLODIPine 5 MG Tablet PO (08:35)
--- NOTE | 2022-02-27 14:45 | CASEMGMT ---
Social Work IDT met with patient and sister via conference call for Team meeting. Discussed patient's progress in PT/OT and nursing. Pt progressing well. Sister completed therapy training over the weekend, which went well. Sister asked many questions about home going and time remaining with insurance. Explained [employer] insurance with NRD 02/28 and continued stay is not guaranteed. Sister would still like to keep [facility] as alternative plan, but is planning on taking pt home with her. Discussed respite at SNF/[place] and [place] adult day service options. Provided resources for [place], [facility] and private duty PRESCHOOL ASSOCIATE TEACHER. Encouraged to continue pursuing Medicaid as it can cover those options. Sister expressed understanding. SW to continue to follow for DC planning. Luz Albrecht ,ANAESTHETIC TECHNICIAN DIRECTOR OF MEDICAL STAFF SERVICES
[2022-02-27 16:29] VITALS: BMI 52.4
--- NOTE | 2022-02-27 19:13 | PN_ITS ---
Subjective Subjective Mylene was seen on team rounds today. Her Sister Nathalia came in for family training on Sunday and participated by phone today. She had many questions for the outreach and education social worker and they were answered to her satisfaction. She would like Mylene to stay in rehab as long as possible so that they would need to provide less support at home. Her sister is not always there on the weekends and Mylene would be alone. Afebrile VSS-blood pressure is well controlled. Maintaining appropriate oxygen saturation on RA Oral intake is good The blood sugar record was reviewed and the blood sugars are under excellent control with no hypoglycemia. Discussed with nursing - no problems that need addressed Reviewed the PT/OT/ST notes Medication list reviewed. All lab was personally reviewed. CBC is stable. The MCV has been increasing since the Iron and Vitamin C supplementation were started. BMP is unremarkable. Mylene denies pain, dysuria, SOB, N/V/Abd pain. She is sleeping well. She has no complaints today. Objective Data Objective Data Vital Signs: Vital Signs Temp Pulse Resp BP Pulse Ox 97.0 F L 60 18 125/64 H 100 02/27/22 07:45 02/27/22 07:45 02/27/22 07:45 02/27/22 07:45 02/27/22 07:45 Oxygen Flow Rate (L/min) 2 Oxygen Delivery Method Room Air Weight: 315 lb 8 oz Body Mass Index (BMI) 52.4 Intake & Output: Intake and Output for Last 24 Hours 02/25/22 02/26/22 02/27/22 23:59 23:59 23:59 Intake Total 1040 / 1040 720 / 720 Balance 1040 / 1040 720 / 720 Lab / Micro Data Result Diagrams: 02/27/22 05:47 02/27/22 05:47 Labs: Laboratory Results - last 24 hr 02/27/22 05:47: WBC 6.3, RBC 5.06, Hgb 13.8, Hct 41.7, MCV 82.4, MCH 27.3, MCHC 33.1, RDW Std Deviation 60.1 H, RDW Coeff of Gwendolyn 20.1 H, Plt Count 326, MPV 9.9, Differential Comment 02/27/22 05:47: Sodium 138, Potassium 4.3, Chloride 105, Carbon Dioxide 26.0, Anion Gap 7, BUN 18, Creatinine 0.99, Estim Creat Clear Calc 58.46, Est GFR (MDRD) Af Amer 75, Est GFR (MDRD) Non-Af 62, BUN/Creatinine Ratio 18.1, Glucose 101, Calcium 9.3, Folate 8.70 02/27/22 05:47: Vitamin B12 282 02/27/22 05:54: POC Glucose 110 H Micro: Microbiology 02/10/22 09:15 Stool Stool Occult Blood (AMY) - Final Occult Blood Positive Physical Exam Const alert, oriented x3 and no apparent distress Constitutional Narrative: smiling General Appearance: cooperative Eyes PERRL, EOMs intact bilaterally, conjunctivae normal and no scleral icterus Neck supple Resp normal respiratory effort, normal air movement, no use of accessory muscles and clear to auscultation bilaterally Cardio regular rate, regular rhythm, no murmurs and no gallops Cardio Narrative: distant heart sounds....most likely related to body habitus. GI normal to inspection, nondistended, normoactive bowel sounds, soft to palpation and non-tender GI Narrative: having regular BM's Extremity no calf tenderness and no pedal edema Extremity Narrative: ANDRES wraps are in place Skin General Skin Exam: no breakdown Rashes: no rashes Neuro Neuro Narrative: Facial droop is much improved and speech is projecting well with good vocal quality. No slurring. She has some movement in the upper arm when the arm is supported now. She is able to ambulate approximately 20 ft advancing her foot without assist but then fatigues and needs min assist. Psych mental status grossly normal, thought process normal, cooperative and affect normal Appearance: grossly normal Activity / Motor Behavior: appropriate eye contact Speech: normal speech Assessment & Plan Assessment/Plan (1) Physical debility: PLAN: Making excellent progress in therapy. Plan is to discharge home to her sister's home when she is ready and then to have [facility] for continued therapy. (2) Embolic cerebral infarction: PLAN: She is on Eliquis 5 mg p.o. twice daily and the factor X inhibitory activity is therapeutic. We will continue. 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 No difficulty swallowing. (5) Chronic anticoagulation: PLAN: Continue Eliquis 5 mg p.o. twice daily. (6) Sleep disorder breathing: PLAN: Will need home O2 at [place] since she is using the hospital's CPAP now. Will try and schedule a sleep study on a Sunday night when her sister can accompany her and assist her to the BR if necessary. Will follow up with pulmonary following the sleep study. SW is aware. (7) Diabetes mellitus, type 2: QUALIFIERS: Diabetes mellitus usp insulin use: without ferry terminal supervisor use Diabetes mellitus complication status: with circulatory complication Diabetes mellitus complication detail: with other circulatory complications Qualified Code(s): E11.59 - Type 2 diabetes mellitus with other circulatory complications PLAN: excellent control with no hypoglycemia. Continue Glucophage and Jardiance. Charges/Coding Visit Charges Inpatient E&M: 94345 Subs Hosp L2
[2022-02-27 20:00] VITALS: BP 116/60; PULSE 74; RESP 18; TEMP 36.4; O2SAT 98; BMI 52.4
[2022-02-27] MEDS: Menthol/Lanolin/Calamine/Znox 113 GM Tube 1 APPLIC TOPICAL (20:25)
[2022-02-27 21:49] VITALS: PULSE 64; RESP 16; O2SAT 95
--- NOTE | 2022-02-28 03:35 | NURSING ---
Reviewed and agree with SHAREPOINT SOLUTIONS DEVELOPER documentation and assessment charting.
--- NOTE | 2022-02-28 03:37 | NURSING ---
Reviewed and agree with DYNAMOMETER REPAIRER documentation and assessment charting.
[2022-02-28] MEDS: Menthol/Lanolin/Calamine/Znox 113 GM Tube 1 APPLIC TOPICAL ×2 (06:15→21:06)
[2022-02-28] MEDS: Arthritis Pain Compound 60 CLICK TUBE TOPICAL ×6 (06:18→21:12)
[2022-02-28] MEDS: Nystatin Powder 15gm Bottle 1 APPLIC TOPICAL ×2 (06:18→21:07)
[2022-02-28 06:26] LABS: Bedside Glucose 94 mg/dL (74-106)
[2022-02-28 07:38] VITALS: BP 125/65; PULSE 60; RESP 16; TEMP 35.8
[2022-02-28] MEDS: Carvedilol 6.25 MG Tablet PO ×2 (08:35→21:07)
[2022-02-28] MEDS: Venlafaxine XR 150 MG Capsule PO (08:35)
[2022-02-28] MEDS: amLODIPine 5 MG Tablet PO (08:35)
[2022-02-28] MEDS: APIXABAN 5 MG TABLET PO ×2 (08:35→21:07)
[2022-02-28] MEDS: metFORMIN HCl 500 MG Tablet PO ×2 (08:35→17:03)
[2022-02-28] MEDS: Potassium Chloride Oral Tablet 20 MEQ PO ×2 (08:35→21:05)
[2022-02-28] MEDS: SACUBITRIL/VALSARTAN 24/26 MG TABLET 1 EACH PO ×2 (08:35→21:08)
[2022-02-28] MEDS: Empagliflozin 25 MG Tablet PO (08:35)
[2022-02-28] MEDS: Furosemide 40 MG Tablet PO (08:36)
[2022-02-28] MEDS: Aspirin 81 MG TAB.CHEW PO (08:36)
[2022-02-28] MEDS: Amiodarone 200 MG Tablet PO (08:36)
[2022-02-28] MEDS: Spironolactone 25 MG Tablet PO (08:36)
[2022-02-28 15:23] VITALS: BMI 52.4
[2022-02-28 21:07] VITALS: BP 117/69; PULSE 72; RESP 14; TEMP 36.1; O2SAT 98; BMI 52.4
[2022-02-28 22:15] VITALS: PULSE 65; RESP 16; O2SAT 96
--- NOTE | 2022-03-01 05:25 | NURSING ---
Reviewed and agree with PATIENT RELATIONS REPRESENTATIVE assessment.
[2022-03-01] MEDS: Arthritis Pain Compound 60 CLICK TUBE TOPICAL ×6 (05:38→20:45)
[2022-03-01] MEDS: Nystatin Powder 15gm Bottle 1 APPLIC TOPICAL ×2 (06:05→20:40)
[2022-03-01 07:20] LABS: Bedside Glucose 106 mg/dL (74-106)
[2022-03-01] MEDS: metFORMIN HCl 500 MG Tablet PO ×2 (08:25→16:49)
[2022-03-01] MEDS: Aspirin 81 MG TAB.CHEW PO (08:25)
[2022-03-01] MEDS: Spironolactone 25 MG Tablet PO (08:25)
[2022-03-01] MEDS: Amiodarone 200 MG Tablet PO (08:25)
[2022-03-01] MEDS: Venlafaxine XR 150 MG Capsule PO (08:25)
[2022-03-01] MEDS: Furosemide 40 MG Tablet PO (08:26)
[2022-03-01] MEDS: Potassium Chloride Oral Tablet 20 MEQ PO ×2 (08:26→20:38)
[2022-03-01] MEDS: Carvedilol 6.25 MG Tablet PO ×2 (08:26→20:39)
[2022-03-01] MEDS: APIXABAN 5 MG TABLET PO ×2 (08:26→20:39)
[2022-03-01] MEDS: amLODIPine 5 MG Tablet PO (08:26)
[2022-03-01] MEDS: SACUBITRIL/VALSARTAN 24/26 MG TABLET 1 EACH PO ×2 (08:26→20:40)
[2022-03-01] MEDS: Empagliflozin 25 MG Tablet PO (08:28)
--- NOTE | 2022-03-01 09:40 | PCM.PROGNOTE ---
Subjective Subjective Afebrile VSS-blood pressure is well controlled. Heart rate is within normal limits. Maintaining appropriate oxygen saturation on RA Oral intake is good Blood sugars are very well controlled with no hypoglycemia. Discussed with nursing - no problems that need addressed Reviewed the PT/OT/ST notes Medication list reviewed. Insurance has approved more days and the next update is 03/06. Mylene has no complaints. She is sleeping well and eating well. She is calm and engaged when talking with her and she is often smiling. Interacting with staff well. Denies chest pain, shortness of breath, palpitations, lightheadedness. She has no orthopnea no paroxysmal nocturnal dyspnea. She is compliant with the CPAP every night. Objective Data Objective Data Vital Signs: Vital Signs Temp Pulse Resp BP Pulse Ox 97.0 F L 65 16 117/69 96 02/28/22 21:07 02/28/22 22:15 02/28/22 22:15 02/28/22 21:07 02/28/22 22:15 Oxygen Flow Rate (L/min) 2 Oxygen Delivery Method Room Air Weight: 313 lb 15.012 oz Body Mass Index (BMI) 52.4 Intake & Output: Intake and Output for Last 24 Hours 02/27/22 02/28/22 03/01/22 23:59 23:59 23:59 Intake Total 720 / 720 1200 / 1200 Balance 720 / 720 1200 / 1200 Lab / Micro Data Result Diagrams: 02/27/22 05:47 02/27/22 05:47 Labs: Laboratory Results - last 24 hr 03/01/22 06:19: POC Glucose 106 Micro: Microbiology 02/10/22 09:15 Stool Stool Occult Blood (AMY) - Final Occult Blood Positive Physical Exam Const alert, oriented x3 and no apparent distress Resp normal respiratory effort and clear to auscultation bilaterally Resp Narrative: Breath sounds are diminished secondary to body habitus but she is able to speak in full sentences with no tachypnea. Cardio regular rate, regular rhythm, no murmurs and no gallops Extremity no calf tenderness and no pedal edema Extremity Narrative: Edema is adequately controlled by bilateral Toni wraps. The right foot is wrapped into dorsiflexion. Skin General Skin Exam: no breakdown Rashes: no rashes Psych mental status grossly normal, thought process normal, cooperative and affect normal Attitude: calm Activity / Motor Behavior: appropriate eye contact Assessment & Plan Assessment/Plan (1) Facial droop due to stroke: (2) Right hemiparesis: (3) Physical debility: (4) Chronic anticoagulation: (5) Sleep disorder breathing: (6) Diabetes mellitus, type 2: QUALIFIERS: Diabetes mellitus terminal system operator insulin use: without terminal system operator use Diabetes mellitus complication status: with circulatory complication Diabetes mellitus complication detail: with other circulatory complications Qualified Code(s): E11.59 - Type 2 diabetes mellitus with other circulatory complications PLAN: 1. Continue PT/OT. She was discharged from speech therapy on 02/10/2022. 2. Making good progress in therapy. No longer ambulating on the wall rail 3. Diabetes and HTN are well controlled. Continue the current drug regimen. 4. DC to her sister's home when she is able to get into the house and when she does not need 24/7 supervision. The house is WC accessible and there is a ramp now. she will need to be able to ambulate into and out of the bathroom because the WC is wider than the doorway. Charges/Coding Visit Charges Inpatient E&M: 31969 Subs Hosp L1
--- NOTE | 2022-03-01 10:13 | CASEMGMT ---
Social Work Updated pt and [facility] pt's NRD 03/07. The plan is for pt to DC to sister's home, but if sister cannot accept her at time of DC, [facility] will still be the alternative plan. SW to continue to follow. uLz Albrecht, CNC GRINDER FINISHING WIRE SAWYER
[2022-03-01 14:38] VITALS: BMI 52.4
[2022-03-01] MEDS: Menthol/Lanolin/Calamine/Znox 113 GM Tube 1 APPLIC TOPICAL (20:38)
[2022-03-01 20:51] VITALS: BP 118/61; PULSE 72; RESP 16; TEMP 37.1; O2SAT 98
[2022-03-01 21:36] VITALS: PULSE 62; RESP 16; O2SAT 96
[2022-03-02] MEDS: Nystatin Powder 15gm Bottle 1 APPLIC TOPICAL ×2 (04:51→21:30)
[2022-03-02] MEDS: Menthol/Lanolin/Calamine/Znox 113 GM Tube 1 APPLIC TOPICAL ×2 (04:51→21:28)
[2022-03-02 07:21] LABS: Bedside Glucose 90 mg/dL (74-106)
[2022-03-02] MEDS: metFORMIN HCl 500 MG Tablet PO ×2 (07:39→17:04)
[2022-03-02] MEDS: Potassium Chloride Oral Tablet 20 MEQ PO ×2 (07:39→21:26)
[2022-03-02] MEDS: amLODIPine 5 MG Tablet PO (07:39)
[2022-03-02] MEDS: Carvedilol 6.25 MG Tablet PO ×2 (07:39→21:28)
[2022-03-02] MEDS: Venlafaxine XR 150 MG Capsule PO (07:39)
[2022-03-02] MEDS: Amiodarone 200 MG Tablet PO (07:39)
[2022-03-02] MEDS: Aspirin 81 MG TAB.CHEW PO (07:39)
[2022-03-02] MEDS: Furosemide 40 MG Tablet PO (07:39)
[2022-03-02] MEDS: Spironolactone 25 MG Tablet PO (07:40)
[2022-03-02] MEDS: SACUBITRIL/VALSARTAN 24/26 MG TABLET 1 EACH PO ×2 (07:40→21:29)
[2022-03-02] MEDS: APIXABAN 5 MG TABLET PO ×2 (07:40→21:29)
[2022-03-02] MEDS: Arthritis Pain Compound 60 CLICK TUBE TOPICAL ×4 (07:40→14:24)
[2022-03-02] MEDS: Empagliflozin 25 MG Tablet PO (07:40)
[2022-03-02 07:45] VITALS: BP 135/68; PULSE 57; RESP 17; TEMP 36.2; O2SAT 97
[2022-03-02 08:20] VITALS: BMI 52.4
[2022-03-02 08:22] VITALS: PULSE 70
[2022-03-02 20:25] VITALS: BP 122/54; PULSE 68; RESP 16; TEMP 36.1; O2SAT 94
[2022-03-03 01:25] VITALS: BMI 52.4
[2022-03-03 06:00] LABS: Bedside Glucose 91 mg/dL (74-106)
[2022-03-03] MEDS: Menthol/Lanolin/Calamine/Znox 113 GM Tube 1 APPLIC TOPICAL ×2 (07:03→20:50)
[2022-03-03] MEDS: Nystatin Powder 15gm Bottle 1 APPLIC TOPICAL ×2 (07:03→20:50)
[2022-03-03] MEDS: Arthritis Pain Compound 60 CLICK TUBE TOPICAL ×5 (07:49→20:52)
[2022-03-03] MEDS: SACUBITRIL/VALSARTAN 24/26 MG TABLET 1 EACH PO ×2 (07:50→20:50)
[2022-03-03] MEDS: Carvedilol 6.25 MG Tablet PO ×2 (07:50→20:48)
[2022-03-03] MEDS: Amiodarone 200 MG Tablet PO (07:50)
[2022-03-03] MEDS: Potassium Chloride Oral Tablet 20 MEQ PO ×2 (07:50→20:49)
[2022-03-03] MEDS: APIXABAN 5 MG TABLET PO ×2 (07:50→20:50)
[2022-03-03] MEDS: Empagliflozin 25 MG Tablet PO (07:50)
[2022-03-03] MEDS: Aspirin 81 MG TAB.CHEW PO (07:50)
[2022-03-03] MEDS: Furosemide 40 MG Tablet PO (07:51)
[2022-03-03] MEDS: metFORMIN HCl 500 MG Tablet PO ×2 (07:51→17:49)
[2022-03-03] MEDS: Spironolactone 25 MG Tablet PO (07:51)
[2022-03-03] MEDS: Venlafaxine XR 150 MG Capsule PO (07:54)
[2022-03-03] MEDS: amLODIPine 5 MG Tablet PO (07:54)
[2022-03-03 10:00] VITALS: BP 133/65; PULSE 56; RESP 17; TEMP 36.1; O2SAT 98
[2022-03-03 12:53] VITALS: BMI 52.4
--- NOTE | 2022-03-03 13:00 | PN_ITS ---
Subjective Subjective Afebrile VSS-blood pressure is well controlled. Both the systolic and diastolic are at goal or below. Maintaining appropriate oxygen saturation on RA Oral intake is good. Discussed with nursing - no problems that need addressed Reviewed the PT/OT notes Medication list reviewed. Blood sugar record was reviewed and the blood sugars are under excellent control with no hypoglycemia. Mylene denies chest pain, shortness of breath, palpitations, lightheadedness, cephalgia, nausea/vomiting, diarrhea/constipation, calf pain. She has not complained about knee pain since the joint was injected earlier in the admissi on. She is using the compounded arthritic cream with good success. Objective Data Objective Data Vital Signs: Vital Signs Temp Pulse Resp BP Pulse Ox 97.0 F L 56 L 17 133/65 H 98 03/03/22 10:00 03/03/22 10:00 03/03/22 10:00 03/03/22 10:00 03/03/22 10:00 Oxygen Flow Rate (L/min) 2 Oxygen Delivery Method Room Air Weight: 313 lb 15.012 oz Body Mass Index (BMI) 52.4 Intake & Output: Intake and Output for Last 24 Hours 03/01/22 03/02/22 03/03/22 23:59 23:59 23:59 Intake Total 720 / 720 Balance 720 / 720 Lab / Micro Data Result Diagrams: 02/27/22 05:47 02/27/22 05:47 Labs: Laboratory Results - last 24 hr 03/03/22 05:55: POC Glucose 91 Micro: Microbiology 02/10/22 09:15 Stool Stool Occult Blood (AMY) - Final Occult Blood Positive Physical Exam Const alert and oriented x3 General Appearance: cooperative HEENT HEENT Narrative: Mucous membranes are moist. No thrush. Eyes PERRL, EOMs intact bilaterally, conjunctivae normal and no scleral icterus Chest Chest: symmetrical chest wall rise Resp normal respiratory effort and clear to auscultation bilaterally Effort and Inspection: able to speak in complete sentences Cardio regular rate, regular rhythm, S1 normal heart sound, S2 normal heart sound and no gallops Cardio Narrative: No ectopy GI normal to inspection, nondistended, normoactive bowel sounds, soft to palpation and non-tender Extremity no calf tenderness and no pedal edema Assessment & Plan Assessment/Plan (1) Physical debility: (2) Embolic cerebral infarction: (3) Atrial fibrillation: QUALIFIERS: Atrial fibrillation type: persistent (not longstanding) Qualified Code(s): I48.19 - Other persistent atrial fibrillation (4) Chronic anticoagulation: (5) Depression: QUALIFIERS: Depression Type: reactive depression Qualified Code(s): F32.9 - Major depressive disorder, single episode, unspecified (6) Diabetes mellitus, type 2: QUALIFIERS: Diabetes mellitus correction insulin use: without correction use Diabetes mellitus complication status: with circulatory complication Diabetes mellitus complication detail: with other circulatory complications Qualified Code(s): E11.59 - Type 2 diabetes mellitus with other circulatory complications (7) HTN (hypertension): PLAN: 1. Continue physical therapy and Occupational Therapy so that she may be discharged home with her sister rather than to a retirement facility or an ECF. She is making good steady progress and is very motivated to get better. She is always cooperative. 2. Continue the current drug regimen. 3. weight went up from last week. she tells me she is not eating any outside food and she is on a 1800 calorie diet. If the weight goes up again on Sunday will decrease the calories to 1600 or 1700 calories per day. Charges/Coding Visit Charges Inpatient E&M: 17592 Subs Hosp L1
[2022-03-03] MEDS: Acetaminophen 325 MG Tablet 650 MG PO (18:48)
[2022-03-03 19:58] VITALS: BP 148/86; PULSE 70; RESP 17; TEMP 36.1; O2SAT 96
[2022-03-04 03:51] VITALS: BMI 52.4
[2022-03-04] MEDS: Menthol/Lanolin/Calamine/Znox 113 GM Tube 1 APPLIC TOPICAL ×2 (06:11→20:38)
[2022-03-04] MEDS: Nystatin Powder 15gm Bottle 1 APPLIC TOPICAL ×2 (06:11→20:37)
[2022-03-04 06:16] LABS: Bedside Glucose 95 mg/dL (74-106)
[2022-03-04] MEDS: metFORMIN HCl 500 MG Tablet PO ×2 (07:29→16:23)
[2022-03-04] MEDS: Venlafaxine XR 150 MG Capsule PO (07:29)
[2022-03-04] MEDS: Carvedilol 6.25 MG Tablet PO ×2 (07:30→20:37)
[2022-03-04] MEDS: Furosemide 40 MG Tablet PO (07:30)
[2022-03-04] MEDS: APIXABAN 5 MG TABLET PO ×2 (07:30→20:36)
[2022-03-04] MEDS: amLODIPine 5 MG Tablet PO (07:30)
[2022-03-04] MEDS: SACUBITRIL/VALSARTAN 24/26 MG TABLET 1 EACH PO ×2 (07:30→20:36)
[2022-03-04] MEDS: Aspirin 81 MG TAB.CHEW PO (07:30)
[2022-03-04] MEDS: Empagliflozin 25 MG Tablet PO (07:30)
[2022-03-04] MEDS: Potassium Chloride Oral Tablet 20 MEQ PO ×2 (07:30→20:36)
[2022-03-04] MEDS: Amiodarone 200 MG Tablet PO (07:30)
[2022-03-04] MEDS: Spironolactone 25 MG Tablet PO (07:30)
[2022-03-04] MEDS: Arthritis Pain Compound 60 CLICK TUBE TOPICAL ×6 (07:32→20:41)
[2022-03-04 08:06] VITALS: BP 137/68; PULSE 56; RESP 18; TEMP 35.8; O2SAT 95
[2022-03-04 14:58] VITALS: BMI 52.4
[2022-03-04 20:30] VITALS: PULSE 65; RESP 17; O2SAT 95; BMI 52.4
[2022-03-04] MEDS: Senna/Docusate Sodium 1 Tablet 2 TABLET PO (20:37)
[2022-03-04 21:43] VITALS: BP 130/70; PULSE 65; RESP 17; TEMP 36.1; O2SAT 95
--- NOTE | 2022-03-05 03:39 | NURSING ---
Reviewed and agree with APICULTURE TEACHER assessment.
[2022-03-05] MEDS: Nystatin Powder 15gm Bottle 1 APPLIC TOPICAL ×2 (06:13→19:52)
[2022-03-05] MEDS: Arthritis Pain Compound 60 CLICK TUBE TOPICAL ×6 (06:14→19:53)
[2022-03-05 06:45] LABS: Bedside Glucose 109 mg/dL (74-106)
[2022-03-05] MEDS: Venlafaxine XR 150 MG Capsule PO (07:44)
[2022-03-05] MEDS: Amiodarone 200 MG Tablet PO (07:44)
[2022-03-05] MEDS: amLODIPine 5 MG Tablet PO (07:44)
[2022-03-05] MEDS: Furosemide 40 MG Tablet PO (07:44)
[2022-03-05] MEDS: metFORMIN HCl 500 MG Tablet PO (07:44)
[2022-03-05] MEDS: Carvedilol 6.25 MG Tablet PO ×2 (07:44→19:51)
[2022-03-05] MEDS: Potassium Chloride Oral Tablet 20 MEQ PO ×2 (07:44→19:51)
[2022-03-05] MEDS: Aspirin 81 MG TAB.CHEW PO (07:44)
[2022-03-05] MEDS: SACUBITRIL/VALSARTAN 24/26 MG TABLET 1 EACH PO ×2 (07:44→19:51)
[2022-03-05] MEDS: Spironolactone 25 MG Tablet PO (07:46)
[2022-03-05] MEDS: Empagliflozin 25 MG Tablet PO (07:48)
[2022-03-05] MEDS: APIXABAN 5 MG TABLET PO ×2 (07:48→19:51)
[2022-03-05 09:00] VITALS: BMI 52.4
[2022-03-05 10:00] VITALS: BP 127/58; PULSE 61; RESP 18; TEMP 36.3; O2SAT 97
[2022-03-05 19:30] VITALS: BP 128/72; PULSE 79; RESP 18; TEMP 36.7; O2SAT 97; BMI 52.4
[2022-03-05] MEDS: Senna/Docusate Sodium 1 Tablet 2 TABLET PO (19:51)
[2022-03-05] MEDS: Menthol/Lanolin/Calamine/Znox 113 GM Tube 1 APPLIC TOPICAL (19:54)
--- NOTE | 2022-03-06 03:13 | NURSING ---
Reviewed and agree with INSIDE SALES PERSON assessment.
[2022-03-06] MEDS: Nystatin Powder 15gm Bottle 1 APPLIC TOPICAL ×2 (05:13→22:07)
[2022-03-06] MEDS: Arthritis Pain Compound 60 CLICK TUBE TOPICAL ×6 (05:14→22:03)
[2022-03-06 07:00] LABS: Bedside Glucose 108 mg/dL (74-106)
[2022-03-06 07:44] VITALS: BP 133/74; PULSE 57; RESP 17; TEMP 36.5; O2SAT 97
[2022-03-06] MEDS: metFORMIN HCl 500 MG Tablet PO ×2 (07:52→17:55)
[2022-03-06] MEDS: Amiodarone 200 MG Tablet PO (07:52)
[2022-03-06] MEDS: Aspirin 81 MG TAB.CHEW PO (07:52)
[2022-03-06] MEDS: Empagliflozin 25 MG Tablet PO (07:52)
[2022-03-06] MEDS: amLODIPine 5 MG Tablet PO (07:53)
[2022-03-06] MEDS: Potassium Chloride Oral Tablet 20 MEQ PO ×2 (07:53→22:00)
[2022-03-06] MEDS: Carvedilol 6.25 MG Tablet PO ×2 (07:53→22:00)
[2022-03-06] MEDS: SACUBITRIL/VALSARTAN 24/26 MG TABLET 1 EACH PO ×2 (07:53→22:00)
[2022-03-06] MEDS: Furosemide 40 MG Tablet PO (07:53)
[2022-03-06] MEDS: APIXABAN 5 MG TABLET PO ×2 (07:55→22:00)
[2022-03-06] MEDS: Senna/Docusate Sodium 1 Tablet 2 TABLET PO (07:55)
[2022-03-06] MEDS: Spironolactone 25 MG Tablet PO (07:55)
[2022-03-06] MEDS: Venlafaxine XR 150 MG Capsule PO (07:56)
[2022-03-06 13:07] VITALS: BMI 52.4
--- NOTE | 2022-03-06 15:03 | CASEMGMT ---
Social Work IDT met with patient for Team meeting. Discussed patient's progress in PT/OT and nursing. Pt continues making progress. Therapist does not need to assist pt with advancing foot for 20 ft. Pt is now confident she can DC home safely to sister's home. Canceled referral to [facility]. Pt will need w/c, hemiwalker and O2 at DC. SW to order DME and HHC at DC. IDT inquired about setting DC date to align with sister's work schedule and sleep study needed. Pt declined. Pt wants to continue making as much progress as insurance allows. PT recommending a custom KAFO at DC. SW faxed referral to [facility]. Pt will be fitting after DC. Pt expressed understanding. SW to continue to follow. Luz Albrecht ,CONE BAKER MACHINE EMERGENCY MEDICAL SERVICE MANAGER
--- NOTE | 2022-03-06 17:38 | PN_ITS ---
Subjective Subjective Mylene was seen on team rounds today. Her sister was unable to participate by phone. Afebrile VSS -systolic and diastolic blood pressure are within goal. Maintaining appropriate oxygen saturation on RA Oral intake is good Blood sugars are well controlled with no hypoglycemia. Her weight today is 317.2 pounds which has increased 3 pounds from 02/23/2022. She continues to maintain that she is not eating any outside food. Having regular bowel movements. Discussed with nursing - no problems that need addressed Reviewed the PT/OT notes Medication list reviewed. Denies chest pain, shortness of breath, palpitations, lightheadedness, cephalgia, nausea/vomiting, constipation/diarrhea, hematochezia, hemoptysis. Continues to sleep well and has a good appetite. She makes good eye contact and is very interactive with staff. Objective Data Objective Data Vital Signs: Vital Signs Temp Pulse Resp BP Pulse Ox 97.7 F L 57 L 17 133/74 H 97 03/06/22 07:44 03/06/22 07:44 03/06/22 07:44 03/06/22 07:44 03/06/22 07:44 Oxygen Flow Rate (L/min) 2 Oxygen Delivery Method Room Air Weight: 317 lb 3.923 oz Body Mass Index (BMI) 52.4 Intake & Output: Intake and Output for Last 24 Hours 03/04/22 03/05/22 03/06/22 23:59 23:59 23:59 Intake Total 480 / 480 Balance 480 / 480 Lab / Micro Data Result Diagrams: 02/27/22 05:47 02/27/22 05:47 Labs: Laboratory Results - last 24 hr 03/06/22 06:45: POC Glucose 108 H Micro: Microbiology 02/10/22 09:15 Stool Stool Occult Blood (AMY) - Final Occult Blood Positive Physical Exam Const alert, oriented x3 and no apparent distress General Appearance: cooperative Resp normal respiratory effort, normal air movement and clear to auscultation bilaterally Auscultation: diminished lung sounds Cardio regular rate, regular rhythm, no murmurs and no gallops Cardio Narrative: No ectopy GI normal to inspection, nondistended, normoactive bowel sounds, soft to palpation and non-tender Extremity General Extremity: Negative for clubbing, cyanosis or edema Skin General Skin Exam: no breakdown Rashes: no rashes Neuro Neuro Narrative: Able to advance her right foot without assistance for approximately 20 feet. Beyond 20 feet she needs minimal assistance because she fatigues. She can manage the wheelchair with no assistance. She is able to get on and off an elevated toilet seat. She is much more stable with stand pivot now and can even pivot towards the right side with no loss of balance. She has some motion in the right upper extremity, especially with triceps extension, when the occupational therapist supports the R elbow. Psych thought process normal, cooperative and affect normal Appearance: appropriate Assessment & Plan Assessment/Plan (1) Physical debility: PLAN: Continues to improve and can now ambulate 20 ft, moving the R foot forward herself, independently. She requires only min assist with stand and pivot to both the strong side and the weak side. She is able to get up from the NuStep without assistance at contact-guard assist. On lower surfaces she requires only minimal assistance. I feel that we are getting close to being ab le to DC her home. She will need a WC, vik-walker and home O2. (2) Embolic cerebral infarction: PLAN: She is therapeutic on Eliquis 5 mg BID and this is what she will be discharged home on. she had the most recent embolic stroke while she was on Xarelto. (3) Chronic anticoagulation: PLAN: She has been in SR every time that I have examined her since admission. She has no pitting edema in the ankles with ANDRES wraps for compression. It will be interesting to see how the EF changes with maintenance of SR. (4) Atrial fibrillation: QUALIFIERS: Atrial fibrillation type: persistent (not longstanding) Qualified Code(s): I48.19 - Other persistent atrial fibrillation PLAN: Continue amiodarone. Would check a TSH in about 6 months since amiodarone can affect thyroid function. (5) Depression: QUALIFIERS: Depression Type: reactive depression Qualified Code(s): F32.9 - Major depressive disorder, single episode, unspecified (6) Sleep disorder breathing: PLAN: Will need and OP sleep study. Doing well in rehab on the hospital's CPAP. Will send home with home O2 to be worn at night only until she can see pulmonary and obtain a CPAP unit for use at home. (7) Diabetes mellitus, type 2: QUALIFIERS: Diabetes mellitus senior care insulin use: without senior care use Diabetes mellitus complication status: with circulatory complication Diabetes mellitus complication detail: with other circulatory complications Qualified Code(s): E11.59 - Type 2 diabetes mellitus with other circulatory c omplications PLAN: Diabetes is well controlled on 500 mg of Glucophage twice daily and Jardiance. Her weight has started to increase and she is eating 1800 shelby a day. She denies eating any outside food. I once again reviewed the dietitian's note from earlier in the admission and she recommended 1600 to 1800 shelby a day. We will decrease her diet to 1700 shelby a day and continue to monitor her weight weekly. (8) Right hemiparesis: PLAN: Getting stronger. Will need continued PT and OT as an OP. HHC at least initially. Charges/Coding Visit Charges Inpatient E&M: 35821 Subs Hosp L2
[2022-03-06 22:00] VITALS: BP 137/75; PULSE 65; RESP 14; TEMP 36.8; O2SAT 99; BMI 52.4
[2022-03-06] MEDS: Menthol/Lanolin/Calamine/Znox 113 GM Tube 1 APPLIC TOPICAL (22:01)
--- NOTE | 2022-03-07 03:15 | NURSING ---
REVIEWED AND AGREE WITH ASSISTANT CORPORATE CONTROLLER DOCUMENTATION AND CHARTING.
[2022-03-07] MEDS: Nystatin Powder 15gm Bottle 1 APPLIC TOPICAL ×2 (05:45→20:33)
[2022-03-07] MEDS: Arthritis Pain Compound 60 CLICK TUBE TOPICAL ×4 (05:46→13:56)
[2022-03-07 06:51] LABS: Bedside Glucose 107 mg/dL (74-106)
[2022-03-07 07:37] VITALS: BP 113/62; PULSE 56; RESP 16; TEMP 36.1; O2SAT 97
[2022-03-07] MEDS: Empagliflozin 25 MG Tablet PO (08:14)
[2022-03-07] MEDS: Venlafaxine XR 150 MG Capsule PO (08:14)
[2022-03-07] MEDS: Carvedilol 6.25 MG Tablet PO ×2 (08:14→20:31)
[2022-03-07] MEDS: Aspirin 81 MG TAB.CHEW PO (08:14)
[2022-03-07] MEDS: metFORMIN HCl 500 MG Tablet PO ×2 (08:14→16:40)
[2022-03-07] MEDS: Potassium Chloride Oral Tablet 20 MEQ PO ×2 (08:14→20:29)
[2022-03-07] MEDS: SACUBITRIL/VALSARTAN 24/26 MG TABLET 1 EACH PO ×2 (08:14→20:32)
[2022-03-07] MEDS: Amiodarone 200 MG Tablet PO (08:14)
[2022-03-07] MEDS: Furosemide 40 MG Tablet PO (08:15)
[2022-03-07] MEDS: APIXABAN 5 MG TABLET PO ×2 (08:15→20:32)
[2022-03-07] MEDS: amLODIPine 5 MG Tablet PO (08:15)
[2022-03-07] MEDS: Spironolactone 25 MG Tablet PO (08:15)
[2022-03-07 14:57] VITALS: BMI 52.4
--- NOTE | 2022-03-07 15:29 | CASEMGMT ---
Social Work Received call from pt's sister. Spoke with her extensively on discharge plans. Throughout conversation, sister expressed concern with having pt come to her home and the feasibility of caring for her. Sister runs an-in home daycare [employer], then travels to her daughter's house to babysit her grandchildren on , and is typically at her children's sporting events or outings on the weekends. She expressed concern with completing the step into the shower, transportation to appts, and the overall time and assistance the pt needs. She stated she received a confirmation email from [facility] that pt's Medicaid is approved starting 01/20/22. Sister asked multiple questions on resources/respite stays for when she is not home to care for pt. SW provided ongoing supportive listening, validation of feelings, and reality of lifestyle changing for both sister and pt. Explained resources available and questions to inquire to CM for [place]AN coverage such as [place] each with transport and showers, respite stay eligibility/restrictions for SNFs, KIERAN bedhold days if pt DCd to SNF and pt would have LOAs at sisters home, application for Waiver services for [employer], [employer]RA[employer] HELPER, transportation, DME, etc. Encouraged sister to get answers, discuss with and family, and thoroughly think if she is confident in taking pt to her home. Explained insurance NRD 03/14 and offered to take the next week to get these answers and provide confident decision on DC plan to SW next week. Offered to have honest discussion with pt and sister. Sister stated she had these conversations with pt, but pt only hears what she wants to hear that is sister is taking her home. Expressed understanding. Sister expressed appreciation for time and support from this worker. SW to f/u before NRD. Will continue to follow. Luz Albrecht, STACY ESCOBEDOW
[2022-03-07 18:56] VITALS: BP 120/56; PULSE 67; RESP 17; TEMP 36.4; O2SAT 97
[2022-03-07] MEDS: Menthol/Lanolin/Calamine/Znox 113 GM Tube 1 APPLIC TOPICAL (20:30)
--- NOTE | 2022-03-07 22:15 | NURSING ---
2015 pt sitting recliner and was noted to have frown on her face, when asked what was wrong, pt pointed to her shorts and they were noted to be crooked. pt then burst out crying. staff gave pt a hug and asked what was wrong and pt reported that she was tired. staff proceeded to get pt ready for bed, with pt crying off and on. pt refused to take most of her medications stating that she did not want them. pt positioned in bed for comfort and staff questioned pt if she had a bad day and pt stated yes that she had . pt declined to talk about it , staff encouraged that when she that she was able that staff would listen to her. pt continued to have intermittent tears and acknowledged this staff member. rn made aware of pt tearfulness
[2022-03-08 00:52] VITALS: BMI 52.4
--- NOTE | 2022-03-08 02:14 | NURSING ---
Reviewed and agree with DIRECTOR OF STUDENT SERVICES documentation and assessment charting.
[2022-03-08 07:06] LABS: Bedside Glucose 112 mg/dL (74-106)
[2022-03-08 08:09] VITALS: BP 121/75; PULSE 60; RESP 17; TEMP 36.7; O2SAT 99
[2022-03-08] MEDS: Venlafaxine XR 150 MG Capsule PO (08:16)
[2022-03-08] MEDS: Amiodarone 200 MG Tablet PO (08:16)
[2022-03-08] MEDS: Carvedilol 6.25 MG Tablet PO ×2 (08:17→20:52)
[2022-03-08] MEDS: Aspirin 81 MG TAB.CHEW PO (08:17)
[2022-03-08] MEDS: metFORMIN HCl 500 MG Tablet PO ×2 (08:17→17:08)
[2022-03-08] MEDS: Furosemide 40 MG Tablet PO (08:17)
[2022-03-08] MEDS: SACUBITRIL/VALSARTAN 24/26 MG TABLET 1 EACH PO ×2 (08:17→20:53)
[2022-03-08] MEDS: Potassium Chloride Oral Tablet 20 MEQ PO ×2 (08:17→20:51)
[2022-03-08] MEDS: Empagliflozin 25 MG Tablet PO (08:17)
[2022-03-08] MEDS: amLODIPine 5 MG Tablet PO (08:17)
[2022-03-08] MEDS: Spironolactone 25 MG Tablet PO (08:18)
[2022-03-08] MEDS: APIXABAN 5 MG TABLET PO ×2 (08:18→20:53)
[2022-03-08] MEDS: Arthritis Pain Compound 60 CLICK TUBE TOPICAL ×2 (08:19)
[2022-03-08 15:21] VITALS: BMI 52.4
[2022-03-08 19:48] VITALS: BP 132/85; PULSE 68; RESP 16; TEMP 36.5; O2SAT 96
[2022-03-08] MEDS: Menthol/Lanolin/Calamine/Znox 113 GM Tube 1 APPLIC TOPICAL (20:52)
[2022-03-08] MEDS: Nystatin Powder 15gm Bottle 1 APPLIC TOPICAL (20:54)
[2022-03-08 21:31] VITALS: BMI 52.4
[2022-03-08 22:00] VITALS: PULSE 66; RESP 16; O2SAT 96
[2022-03-09 06:30] LABS: Bedside Glucose 92 mg/dL (74-106)
[2022-03-09] MEDS: Menthol/Lanolin/Calamine/Znox 113 GM Tube 1 APPLIC TOPICAL ×2 (06:59→21:26)
[2022-03-09] MEDS: Nystatin Powder 15gm Bottle 1 APPLIC TOPICAL ×2 (06:59→21:26)
[2022-03-09 07:38] VITALS: BP 134/61; PULSE 60; RESP 18; TEMP 36.1; O2SAT 98
[2022-03-09] MEDS: Furosemide 40 MG Tablet PO (07:46)
[2022-03-09] MEDS: Spironolactone 25 MG Tablet PO (07:46)
[2022-03-09] MEDS: Potassium Chloride Oral Tablet 20 MEQ PO ×2 (07:46→21:28)
[2022-03-09] MEDS: Empagliflozin 25 MG Tablet PO (07:46)
[2022-03-09] MEDS: amLODIPine 5 MG Tablet PO (07:46)
[2022-03-09] MEDS: Amiodarone 200 MG Tablet PO (07:47)
[2022-03-09] MEDS: Venlafaxine XR 150 MG Capsule PO (07:47)
[2022-03-09] MEDS: APIXABAN 5 MG TABLET PO ×2 (07:47→21:26)
[2022-03-09] MEDS: SACUBITRIL/VALSARTAN 24/26 MG TABLET 1 EACH PO ×2 (07:47→21:26)
[2022-03-09] MEDS: Carvedilol 6.25 MG Tablet PO ×2 (07:47→21:26)
[2022-03-09] MEDS: metFORMIN HCl 500 MG Tablet PO ×2 (07:47→16:53)
[2022-03-09] MEDS: Aspirin 81 MG TAB.CHEW PO (07:47)
[2022-03-09] MEDS: Arthritis Pain Compound 60 CLICK TUBE TOPICAL ×6 (07:54→21:28)
--- NOTE | 2022-03-09 11:57 | PN_ITS ---
Subjective Subjective Afebrile VSS Maintaining appropriate oxygen saturation on RA Oral intake is good Blood sugars are under excellent control with no hypoglycemia. Bowel movements are regular. Discussed with nursing - no problems that need addressed Reviewed the PT/OT notes Medication list reviewed. Mylene has no complaints today. She states she is sleeping well and has no pain. She denies chest pain, shortness of breath, calf pain, nausea/vomiting/abdominal pain, lightheadedness, dysuria. Objective Data Objective Data Vital Signs: Vital Signs Temp Pulse Resp BP Pulse Ox 97.0 F L 60 18 134/61 H 98 03/09/22 07:38 03/09/22 07:38 03/09/22 07:38 03/09/22 07:38 03/09/22 07:38 Oxygen Flow Rate (L/min) 2 Oxygen Delivery Method Room Air Weight: 317 lb 14.505 oz Body Mass Index (BMI) 52.4 Intake & Output: Intake and Output for Last 24 Hours 03/07/22 03/08/22 03/09/22 23:59 23:59 23:59 Intake Total 340 / 340 Output Total 300 / 300 Balance 40 / 40 Lab / Micro Data Result Diagrams: 02/27/22 05:47 02/27/22 05:47 Labs: Laboratory Results - last 24 hr 03/09/22 06:24: POC Glucose 92 Micro: Microbiology 02/10/22 09:15 Stool Stool Occult Blood (AMY) - Final Occult Blood Positive Physical Exam Const alert, oriented x3 and no apparent distress Constitutional Narrative: smiling HEENT moist oral mucous membranes Eyes PERRL, EOMs intact bilaterally, conjunctivae normal and no scleral icterus Resp normal respiratory effort and clear to auscultation bilaterally Effort and Inspection: able to speak in complete sentences Cardio regular rate, regular rhythm, S1 normal heart sound, S2 normal heart sound and no gallops Cardio Narrative: No ectopy GI normal to inspection, nondistended, normoactive bowel sounds, soft to palpation and non-tender Extremity no calf tenderness and no pedal edema Extremity Narrative: ANDRES wraps are in place. [employer] has called her a few times but, she has not answered and she tells me that it goes to [facility]. Nursing is going to give her the # so she can call them. There should not be a problem because she has Medicaid now. Skin General Skin Exam: no breakdown Rashes: no rashes Neuro Neuro Narrative: I reviewed the therapy notes and she continues to get stronger. Psych mental status grossly normal, thought process normal, cooperative and affect normal Activity / Motor Behavior: appropriate eye contact Assessment & Plan Assessment/Plan (1) Physical debility: (2) Embolic cerebral infarction: (3) Atrial fibrillation: QUALIFIERS: Atrial fibrillation type: persistent (not longstanding) Qualified Code(s): I48.19 - Other persistent atrial fibrillation (4) Chronic anticoagulation: (5) Right hemiparesis: (6) HTN (hypertension): (7) Diabetes mellitus, type 2: QUALIFIERS: Diabetes mellitus snf insulin use: without snf use Diabetes mellitus complication status: with circulatory complication Diabetes mellitus complication detail: with other circulatory complications Qualified Code(s): E11.59 - 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 Next update with insurance is 03/14/22. 2. Continue therapy 3. BP and DM are under excellent control on the current medications. 4. Depression is much better and she is very outgoing now and smiles alot. She is interacting well with the staff and other patients and she is very motivated to get better and go home. We talked about what she would do if her sister was not able to take her at her home and she tells me that she would go to a SNF. She feels confident her sister will be able to take her in. Her son can spend Sunday's with her when her sister is not available. Her son will be out of town on vacation until 03/19 but, if she has to go before then her sister will take her. I will confirm this with her sister. 5. Recheck a lipid panel, a CMP and a mag in the AM. Charges/Coding Visit Charges Inpatient E&M: 10082 Subs Hosp L2
[2022-03-09 16:43] VITALS: BMI 52.4
[2022-03-09 20:00] VITALS: BP 141/84; PULSE 68; RESP 18; TEMP 36.6; O2SAT 94
[2022-03-10 06:21] LABS: ALB/GLOB Ratio 0.9 RATIO (0.9-2.4); AST(SGOT) 15 U/L (15-37); Alanine Aminotransfer ALT/SGPT 29 U/L (13-56); Alkaline Phosphatase 76 U/L (45-117); Anion Gap 7 (5-15); BUN 22 mg/dL (7-18); BUN/Creat Ratio 22.1 RATIO (10-20); Chloride 103 mmol/L (98-107); Cholesterol 150 mg/dL (200); EST Glomerular Filtration Rate 62 mL/min (>60); Est Glom Filt Rate - Afr Amer 75 mL/min (>60); Estimated Creatinine Clearance 57.87 ml/min; Globulin 3.2 g/dL (2.2-4.2); Glucose 86 mg/dL (74-106); High Density Lipoprotein 37 mg/dL; Magnesium 2.1 mg/dL (1.6-2.6); Protein, Total 6.2 g/dL (6.4-8.2); Sodium Level 138 mmol/L (136-145); Triglycerides 116 mg/dL; Very Low Density Lipoprotein 23 mg/dL (5-40)
[2022-03-10] MEDS: Menthol/Lanolin/Calamine/Znox 113 GM Tube 1 APPLIC TOPICAL ×2 (06:38→21:31)
[2022-03-10] MEDS: Arthritis Pain Compound 60 CLICK TUBE TOPICAL ×6 (06:38→21:28)
[2022-03-10] MEDS: Nystatin Powder 15gm Bottle 1 APPLIC TOPICAL ×2 (06:38→21:31)
[2022-03-10 06:46] LABS: Bedside Glucose 89 mg/dL (74-106)
[2022-03-10 07:34] VITALS: BP 138/67; PULSE 58; RESP 16; TEMP 36.3; O2SAT 94
[2022-03-10] MEDS: Aspirin 81 MG TAB.CHEW PO (07:36)
[2022-03-10] MEDS: SACUBITRIL/VALSARTAN 24/26 MG TABLET 1 EACH PO ×2 (07:36→21:29)
[2022-03-10] MEDS: APIXABAN 5 MG TABLET PO ×2 (07:36→21:29)
[2022-03-10] MEDS: Furosemide 40 MG Tablet PO (07:36)
[2022-03-10] MEDS: Amiodarone 200 MG Tablet PO (07:36)
[2022-03-10] MEDS: Potassium Chloride Oral Tablet 20 MEQ PO ×2 (07:36→21:27)
[2022-03-10] MEDS: amLODIPine 5 MG Tablet PO (07:36)
[2022-03-10] MEDS: Spironolactone 25 MG Tablet PO (07:37)
[2022-03-10] MEDS: Carvedilol 6.25 MG Tablet PO ×2 (07:37→21:29)
[2022-03-10] MEDS: metFORMIN HCl 500 MG Tablet PO ×2 (07:37→17:21)
[2022-03-10] MEDS: Empagliflozin 25 MG Tablet PO (07:37)
[2022-03-10] MEDS: Venlafaxine XR 150 MG Capsule PO (07:37)
[2022-03-10 08:51] VITALS: BMI 52.4
--- NOTE | 2022-03-10 12:52 | PCM.PROGNOTE ---
Subjective Subjective Afebrile VSS - BP's have been a little over 130 for the past 4 BP's.......if this continues will need to adjust the medication to Keep < 130/80. Heart rate is ranging from 56-68. She denies lightheadedness. Maintaining appropriate oxygen saturation on RA Oral intake is OK........I encouraged her to increase her fluid intake. Discussed with nursing - no problems that need addressed Reviewed the PT/OT/ST notes Medication list reviewed. Blood sugars are well controlled with no hypoglycemia and no hypoglycemic symptoms. All lab from this morning was personally reviewed. The BUN is 22 and the creatinine is 1.0 with a BUN/creatinine ratio of 22.1. Calcium is 9.0 and the magnesium is 2.1. LFTs are normal. Triglycerides are 116, cholesterol is 150, LDL is 90 and the HDL is decreased at 37. The LDL on 01/18/22 was 44. She was on Atorvastatin when she came to us but, is not now on Atorvastatin? She denies any hx of adverse reaction to Atorvastatin. Mylene has no complaints today. No SOB, CP, palpitations, SARMIENTO, lightheadedness. Denies dysuria, epigastric pain, nausea, abd pain. Objective Data Objective Data Vital Signs: Vital Signs Temp Pulse Resp BP Pulse Ox 97.3 F L 58 L 16 138/67 H 94 03/10/22 07:34 03/10/22 07:34 03/10/22 07:34 03/10/22 07:34 03/10/22 07:34 Oxygen Flow Rate (L/min) 2 Oxygen Delivery Method Room Air Weight: 316 lb 9.341 oz Body Mass Index (BMI) 52.4 Intake & Output: Intake and Output for Last 24 Hours 03/08/22 03/09/22 03/10/22 23:59 23:59 23:59 Intake Total 820 / 820 480 / 480 Output Total 300 / 300 Balance 520 / 520 480 / 480 Lab / Micro Data Result Diagrams: 02/27/22 05:47 03/10/22 05:41 Labs: Laboratory Results - last 24 hr 03/10/22 05:41: Sodium 138, Potassium 4.0, Chloride 103, Carbon Dioxide 28.0, Anion Gap 7, BUN 22 H, Creatinine 1.00, Estim Creat Clear Calc 57.87, Est GFR (MDRD) Af Amer 75, Est GFR (MDRD) Non-Af 62, BUN/Creatinine Ratio 22.1 H, Glucose 86, Calcium 9.0, Magnesium 2.1, Total Bilirubin 0.50, AST 15, ALT 29, Alkaline Phosphatase 76, Total Protein 6.2 L, Albumin 3.0 L, Globulin 3.2, Albumin/Globulin Ratio 0.9, Triglycerides 116, Cholesterol 150, LDL Cholesterol 90, VLDL Cholesterol 23, HDL Cholesterol 37 L 03/10/22 06:37: POC Glucose 89 Micro: Microbiology 02/10/22 09:15 Stool Stool Occult Blood (AMY) - Final Occult Blood Positive Physical Exam Const alert, oriented x3 and no apparent distress General Appearance: cooperative HEENT normocephalic and head/scalp atraumatic Mouth: dry mucous membranes Eyes PERRL, EOMs intact bilaterally, conjunctivae normal and no scleral icterus Resp normal respiratory effort and clear to auscultation bilaterally Effort and Inspection: able to speak in complete sentences Cardio regular rate, regular rhythm and no gallops GI normal to inspection, nondistended, normoactive bowel sounds, soft to palpation and non-tender Extremity no calf tenderness and no pedal edema Assessment & Plan Assessment/Plan (1) Physical debility: PLAN: Has done very well in rehab and remains very motivated to get better. I spoke with her sister today and she plans on Mylene coming to live with her but, will need someone to supervise her for the first couple weeks on Saturdays because Nathalia is not home on Saturdays. Mylene's son Abel will do this but, Abel will not be back from vacation until 03/19/22. Would like to be able to DC home on that date if the insurance company is agreeable. the next update is on 03/14/22. (2) Embolic cerebral infarction: PLAN: She had these infarctions while on Xarelto? Stated she did not miss any doses. She was transitioned to Eliquis 5 mg BID and we checked the Factor XI activity and it is therapeutic. Will continue the Eliquis at [place].......if she has a recurrent event on Eliquis she will likely need to be on Warfarin or Lovenox. (3) Atrial fibrillation: QUALIFIERS: Atrial fibrillation type: persistent (not longstanding) Qualified Code(s): I48.19 - Other persistent atrial fibrillation PLAN: Has been in SR every time I have examined her since 01/18/22. She is currently on Amiodarone and Coreg. She had previously on Tikosyn which was discontinued due to QT prolongation. Will check a TSH and this should be repeated in 6-12 months. (4) Tachycardia induced cardiomyopathy: PLAN: I suspect the EF is better because she no longer has any edema and the lungs are clear. She will need to follow up with a casting associate going forward and likely have a repeat ECHO in 6-12 months. (5) Chronic systolic CHF (congestive heart failure): PLAN: Controlled with the current drug regimen. (6) HTN (hypertension): PLAN: systolic mildly increased the past couple days.......goal is less than 130/80. Will continue to monitor and if it stays above 130 will consider increasing the Amlodipine dose to 7.5 mg daily........although it may decrease after she is home in her regular environment and we could defer to PCP. (7) Chronic anticoagulation: (8) Sleep disorder breathing: PLAN: Her sister told me that since she is now on Medicaid a home sleep study could be obtained.......will D/W the SW. I would still want her to follow up with either pulmonary or neurology to make sure she is on the correct settings. Will need O2 at DC for night time until she is able to get her own CPAP unit. (9) Elevated bilirubin: PLAN: May have been elevated due to biventricular heart failure at admission.......it is normal on the lab today. (10) Dyslipidemia (high LDL; low HDL): PLAN: Has been off Atorvastatin since admission because it did not get ordered when the meds were transcribed. The LDL is only 90 and the goal is < 70 so I do not think she needs 80 mg. will start 40 mg tonight. she will need a repeat Lipid and liver panel in 6 weeks. Charges/Coding Visit Charges Inpatient E&M: 23203 Subs Hosp L2
[2022-03-10 15:00] LABS: Thyroid Stim Hormone (TSH) 0.93 uIU/mL (0.358-3.74)
[2022-03-10 19:26] VITALS: BP 136/78; PULSE 74; RESP 16; TEMP 36.9; O2SAT 98
[2022-03-10] MEDS: Atorvastatin Calcium 40 MG Tablet PO (21:28)
[2022-03-11 03:47] VITALS: BMI 52.4
[2022-03-11] MEDS: Arthritis Pain Compound 60 CLICK TUBE TOPICAL ×7 (06:54→21:07)
[2022-03-11] MEDS: Nystatin Powder 15gm Bottle 1 APPLIC TOPICAL ×2 (06:55→21:19)
[2022-03-11] MEDS: Menthol/Lanolin/Calamine/Znox 113 GM Tube 1 APPLIC TOPICAL ×2 (06:56→21:07)
[2022-03-11 08:00] VITALS: BP 135/61; PULSE 56; RESP 18; TEMP 35.9; O2SAT 96
[2022-03-11] MEDS: Potassium Chloride Oral Tablet 20 MEQ PO ×2 (08:10→21:06)
[2022-03-11] MEDS: Aspirin 81 MG TAB.CHEW PO (08:10)
[2022-03-11] MEDS: APIXABAN 5 MG TABLET PO ×2 (08:10→21:09)
[2022-03-11] MEDS: Carvedilol 6.25 MG Tablet PO ×2 (08:10→21:09)
[2022-03-11] MEDS: Empagliflozin 25 MG Tablet PO (08:11)
[2022-03-11] MEDS: metFORMIN HCl 500 MG Tablet PO ×2 (08:11→16:54)
[2022-03-11] MEDS: Spironolactone 25 MG Tablet PO (08:11)
[2022-03-11] MEDS: Amiodarone 200 MG Tablet PO (08:11)
[2022-03-11] MEDS: SACUBITRIL/VALSARTAN 24/26 MG TABLET 1 EACH PO ×2 (08:12→21:08)
[2022-03-11] MEDS: Venlafaxine XR 150 MG Capsule PO (08:12)
[2022-03-11] MEDS: amLODIPine 5 MG Tablet PO (08:12)
[2022-03-11] MEDS: Furosemide 40 MG Tablet PO (08:13)
[2022-03-11 17:00] VITALS: BMI 52.4
[2022-03-11] MEDS: Atorvastatin Calcium 40 MG Tablet PO (21:08)
[2022-03-11 21:30] VITALS: BP 133/78; PULSE 64
--- NOTE | 2022-03-11 22:00 | ONC.PHONE ---
CPAP mask applied. Water chamber refilled.
[2022-03-12] MEDS: Menthol/Lanolin/Calamine/Znox 113 GM Tube 1 APPLIC TOPICAL (06:22)
[2022-03-12] MEDS: Nystatin Powder 15gm Bottle 1 APPLIC TOPICAL ×2 (06:23→20:57)
--- NOTE | 2022-03-12 06:32 | NURSING ---
Pt refusing arthritis cream pain compound be applied to affected areas at this time. Would like cream applied after bathing later today. Will report to oncoming nurse.
[2022-03-12] MEDS: Aspirin 81 MG TAB.CHEW PO (07:26)
[2022-03-12] MEDS: Arthritis Pain Compound 60 CLICK TUBE TOPICAL ×4 (07:26→14:11)
[2022-03-12] MEDS: metFORMIN HCl 500 MG Tablet PO ×2 (07:26→16:42)
[2022-03-12] MEDS: Spironolactone 25 MG Tablet PO (07:27)
[2022-03-12] MEDS: Amiodarone 200 MG Tablet PO ×2 (07:28→07:32)
[2022-03-12] MEDS: Venlafaxine XR 150 MG Capsule PO (07:29)
[2022-03-12] MEDS: Carvedilol 6.25 MG Tablet PO ×2 (07:29→20:55)
[2022-03-12] MEDS: APIXABAN 5 MG TABLET PO ×2 (07:30→20:55)
[2022-03-12] MEDS: SACUBITRIL/VALSARTAN 24/26 MG TABLET 1 EACH PO ×2 (07:30→20:57)
[2022-03-12] MEDS: Potassium Chloride Oral Tablet 20 MEQ PO ×2 (07:31→20:56)
[2022-03-12] MEDS: Empagliflozin 25 MG Tablet PO (07:31)
[2022-03-12] MEDS: Furosemide 40 MG Tablet PO (07:31)
[2022-03-12] MEDS: amLODIPine 5 MG Tablet PO (07:32)
[2022-03-12 08:51] VITALS: BP 126/75; PULSE 55; RESP 16; TEMP 35.7; O2SAT 99
[2022-03-12 12:57] VITALS: BMI 52.4
[2022-03-12 20:32] VITALS: BMI 52.4
[2022-03-12 20:43] VITALS: BP 126/54; PULSE 69; RESP 16; TEMP 35.9; O2SAT 98
[2022-03-12] MEDS: Atorvastatin Calcium 40 MG Tablet PO (20:56)
[2022-03-13] MEDS: Acetaminophen 325 MG Tablet 650 MG PO ×2 (00:51→20:54)
[2022-03-13] MEDS: Nystatin Powder 15gm Bottle 1 APPLIC TOPICAL ×2 (05:00→20:56)
[2022-03-13 07:24] VITALS: BP 131/68; PULSE 55; RESP 17; TEMP 36.2; O2SAT 98
[2022-03-13] MEDS: Arthritis Pain Compound 60 CLICK TUBE TOPICAL ×4 (07:50→20:53)
[2022-03-13] MEDS: Aspirin 81 MG TAB.CHEW PO (07:51)
[2022-03-13] MEDS: metFORMIN HCl 500 MG Tablet PO ×2 (07:52→16:42)
[2022-03-13] MEDS: amLODIPine 5 MG Tablet PO (07:52)
[2022-03-13] MEDS: Carvedilol 6.25 MG Tablet PO ×2 (07:52→20:50)
[2022-03-13] MEDS: Venlafaxine XR 150 MG Capsule PO (07:52)
[2022-03-13] MEDS: Potassium Chloride Oral Tablet 20 MEQ PO ×2 (07:52→20:50)
[2022-03-13] MEDS: Furosemide 40 MG Tablet PO (07:52)
[2022-03-13] MEDS: SACUBITRIL/VALSARTAN 24/26 MG TABLET 1 EACH PO ×2 (07:52→20:50)
[2022-03-13] MEDS: Amiodarone 200 MG Tablet PO (07:52)
[2022-03-13] MEDS: Spironolactone 25 MG Tablet PO (07:52)
[2022-03-13] MEDS: APIXABAN 5 MG TABLET PO ×2 (07:53→20:50)
[2022-03-13] MEDS: Empagliflozin 25 MG Tablet PO (07:53)
--- NOTE | 2022-03-13 12:18 | PCM.PN.BLA ---
Progress Note Mylene was seen on TEAM rounds today and she continues to make progress. No family was available to participate by phone or be present in the room. Son in out of town until Sunday. Afebrile VSS Maintaining appropriate oxygen saturation on RA Oral intake is good Discussed with nursing - no problems that need addressed Reviewed the PT/OT notes Medication list reviewed. Mylene has no complaints today. Denies calf pain, CP, SARMIENTO, cough, sore throat, lightheadedness. She was able to do the TUG test today with no assistance!. She is starting to be able to dorsiflex the R foot. Min assist for Upper body dressing now and needs help getting the shoes and socks on and the R side of her pants up but, she is getting better with pulling her pants up on the left side. Sleeping well. Physical Exam Const alert, oriented x3, no apparent distress and well nourished Constitutional Narrative: smiling, left her cupcake on the tray....she did not order. Dietary likely put in on her tray because she did not have enough carbs. General Appearance: cooperative, comfortable, well kempt and well developed HEENT normocephalic, head/scalp atraumatic and moist oral mucous membranes Eyes PERRL, EOMs intact bilaterally, conjunctivae normal and no scleral icterus Eyes Narrative: Able to close the R eye but not as tightly as the left and the R eye appears larger than the left due to this. Neck no lymphadenopathy, supple, no JVD and no carotid bruits General: trachea midline; Negative for lymphadenopathy Lymph Lymphatic: no lymphedema noted Chest Chest: symmetrical chest wall rise Resp normal respiratory effort, normal air movement, no use of accessory muscles and clear to auscultation bilaterally Resp Narrative: Breath sounds are diminished secondary to body habitus but she is able to speak in full sentences with no tachypnea. Effort and Inspection: able to speak in complete sentences; Negative for tachypneic or uses accessory muscles Auscultation: clear to auscultation bilaterally and diminished lung sounds bilateral (more likely than not due to body habitus) Cardio regular rate, regular rhythm, S1 normal heart sound, S2 normal heart sound, no murmurs, no rub and no gallops Cardio Narrative: No ectopy GI normal to inspection, nondistended, normoactive bowel sounds, soft to palpation, non-tender and non-distended GI Narrative: having regular BM's Palpation: Negative for guarding Extremity no clubbing, cyanosis or edema, no calf tenderness and no pedal edema Extremity Narrative: ANDRES wraps are in place. Skin no wounds Skin Narrative: No rashes, no skin breakdown. General Skin Exam: no breakdown Rashes: no rashes Wounds: Negative for wounds noted Neuro oriented x3 Neuro Narrative: I reviewed the therapy notes and she continues to get stronger. Psych mental status grossly normal, thought process normal, cooperative, affect normal, activity/motor behavior normal, denies hallucinations, denies homicidal ideation and denies suicidal ideation Psych Narrative: Appropriate, making good eye contact. Able to stay on topic and focus. No flight of ideas. Does not appear anxious or depressed. Conversant and relating well to staff. Overall much improved on the Effexor which was started at admission. No adverse SE's. Appearance: grossly normal, appropriate and well kempt Attitude: calm and No agitated Activity / Motor Behavior: appropriate eye contact Speech: normal speech Mood & Affect: euthymic mood; Negative for depressed, anxious or tearful Thought Process: normal thought process Thought Content: normal thought content, No suicidality, No delusion(s) and No hallucination(s) Attention / Concentration: attention grossly intact and concentration grossly intact Insight: insight good Judgement: judgement good Assessment & Plan Assessment/Plan (1) Physical debility: PLAN: Plan DC to her sister's home on Sunday if the insurance company will extend to then. Son will not be available to help until Sunday......on vacation. (2) Embolic cerebral infarction: PLAN: Continue Eliquis. (3) Atrial fibrillation: QUALIFIERS: Atrial fibrillation type: persistent (not longstanding) Qualified Code(s): I48.19 - Other persistent atrial fibrillation (4) Tachycardia induced cardiomyopathy: (5) Chronic systolic CHF (congestive heart failure): PLAN: Controlled with the current drug regimen. (6) HTN (hypertension): PLAN: systolic is often > 130 so will increase the Amlodipine to 7.5 mg daily. (7) Chronic anticoagulation: (8) Sleep disorder breathing: PLAN: Her sister told me that since she is now on Medicaid a home sleep study could be obtained.......will D/W the SW. I would still want her to follow up with either pulmonary or neurology to make sure she is on the correct settings. Will need O2 at DC for night time until she is able to get her own CPAP unit. (9) Elevated bilirubin: PLAN: May have been elevated due to biventricular heart failure at admission.......it is normal on the lab today. (10) Dyslipidemia (high LDL; low HDL): PLAN: Has been off Atorvastatin since admission because it did not get ordered when the meds were transcribed. The LDL is only 90 and the goal is < 70 so I do not think she needs 80 mg. will start 40 mg tonight. She will need a repeat Lipid and liver panel in 6 weeks. No adverse reactions with the Atorvastatin since it was restarted on Sunday. Visit Charges Inpatient E&M: 76703 Subs Hosp L2
--- NOTE | 2022-03-13 13:59 | CASEMGMT ---
Addendum entered by Luz Albrecht 03/16/22 13:49: [facility] is unable to service pt's area. Referred to [facility]. Unable to service area. Referred to [facility]. They can accept but do not currently have SARMIENTO or SW. SOC 03/20. Updated pt. Original Note: Social Work IDT met with patient for Team meeting. Discussed patient's progress in PT/OT and nursing. Pt progressing well. spoke with sister prior and agreed on DC to [facility] 03/19 due to some scheduling conflicts prior to that date. Pt confirms and feels comfortable/ready to DC. Confirmed DME needs: BSC, hospital bed, hemiwalker, w/c, night O2 and AFO to [place]. Cautioned insurance may not cover hemiwalker, but can forward bill to [facility] once billing number is received. SW to order HHC PT/OT/SN/SARMIENTO/SW. Provided skilled HHC list with quality and resource data. Pt has no preference, agreeable to [facility] access hospital. Contacted sister to confirm DC plans. Sister agreeable with date, DME needs and HHC. Referrals made to [facility] and Critical access hospital. Plan: DC to [facility] 03/19, Critical access hospital PT/OT/SN/SARMIENTO/SW and above listed DME STACY Hunter
[2022-03-13 16:02] VITALS: BMI 52.4
[2022-03-13 19:37] VITALS: BP 130/67; PULSE 68; RESP 18; TEMP 35.9; O2SAT 98
[2022-03-13] MEDS: Atorvastatin Calcium 40 MG Tablet PO (20:50)
[2022-03-13] MEDS: Menthol/Lanolin/Calamine/Znox 113 GM Tube 1 APPLIC TOPICAL (20:56)
[2022-03-14 00:25] VITALS: BMI 52.4
--- NOTE | 2022-03-14 02:07 | NURSING ---
Reviewed and agree with LEGAL IN[employer]STIGATOR documentation and assessment charting.
[2022-03-14] MEDS: Acetaminophen 325 MG Tablet 650 MG PO (02:38)
[2022-03-14] MEDS: Nystatin Powder 15gm Bottle 1 APPLIC TOPICAL ×2 (06:14→20:44)
[2022-03-14] MEDS: Arthritis Pain Compound 60 CLICK TUBE TOPICAL ×6 (06:14→20:42)
[2022-03-14 07:40] VITALS: BP 105/54; PULSE 60; RESP 18; TEMP 36.2; O2SAT 98
[2022-03-14] MEDS: Potassium Chloride Oral Tablet 20 MEQ PO ×2 (08:00→20:40)
[2022-03-14] MEDS: Aspirin 81 MG TAB.CHEW PO (08:00)
[2022-03-14] MEDS: Carvedilol 6.25 MG Tablet PO ×2 (08:00→20:43)
[2022-03-14] MEDS: Amiodarone 200 MG Tablet PO (08:00)
[2022-03-14] MEDS: APIXABAN 5 MG TABLET PO ×2 (08:00→20:44)
[2022-03-14] MEDS: Venlafaxine XR 150 MG Capsule PO (08:00)
[2022-03-14] MEDS: metFORMIN HCl 500 MG Tablet PO ×2 (08:01→16:50)
[2022-03-14] MEDS: Empagliflozin 25 MG Tablet PO (08:01)
[2022-03-14] MEDS: SACUBITRIL/VALSARTAN 24/26 MG TABLET 1 EACH PO ×2 (08:01→20:44)
[2022-03-14] MEDS: amLODIPine 5 MG Tablet PO (08:01)
[2022-03-14] MEDS: Furosemide 40 MG Tablet PO (08:01)
[2022-03-14] MEDS: Spironolactone 25 MG Tablet PO (08:10)
[2022-03-14 14:22] VITALS: BMI 52.4
[2022-03-14 19:09] VITALS: BP 126/54; PULSE 70; RESP 16; TEMP 36.6; O2SAT 97
[2022-03-14] MEDS: Menthol/Lanolin/Calamine/Znox 113 GM Tube 1 APPLIC TOPICAL (20:43)
[2022-03-14] MEDS: Atorvastatin Calcium 40 MG Tablet PO (20:44)
[2022-03-14 21:41] VITALS: BMI 52.4
[2022-03-14 22:00] VITALS: PULSE 61; RESP 17; O2SAT 98
[2022-03-15] MEDS: Arthritis Pain Compound 60 CLICK TUBE TOPICAL ×3 (06:01→08:03)
[2022-03-15] MEDS: Nystatin Powder 15gm Bottle 1 APPLIC TOPICAL ×2 (06:03→20:20)
[2022-03-15] MEDS: Menthol/Lanolin/Calamine/Znox 113 GM Tube 1 APPLIC TOPICAL ×2 (06:03→20:20)
[2022-03-15 07:35] VITALS: BP 127/62; PULSE 55; RESP 16; TEMP 36.3; O2SAT 98
[2022-03-15] MEDS: amLODIPine 5 MG Tablet PO (08:00)
[2022-03-15] MEDS: Furosemide 40 MG Tablet PO (08:00)
[2022-03-15] MEDS: Venlafaxine XR 150 MG Capsule PO (08:01)
[2022-03-15] MEDS: Carvedilol 6.25 MG Tablet PO ×2 (08:01→20:18)
[2022-03-15] MEDS: metFORMIN HCl 500 MG Tablet PO ×2 (08:01→17:04)
[2022-03-15] MEDS: SACUBITRIL/VALSARTAN 24/26 MG TABLET 1 EACH PO ×2 (08:01→20:17)
[2022-03-15] MEDS: Empagliflozin 25 MG Tablet PO (08:01)
[2022-03-15] MEDS: Potassium Chloride Oral Tablet 20 MEQ PO ×2 (08:01→20:18)
[2022-03-15] MEDS: APIXABAN 5 MG TABLET PO ×2 (08:01→20:18)
[2022-03-15] MEDS: Aspirin 81 MG TAB.CHEW PO (08:01)
[2022-03-15] MEDS: Spironolactone 25 MG Tablet PO (08:02)
--- NOTE | 2022-03-15 11:50 | PCM.PROGNOTE ---
Subjective Subjective Afebrile VSS-blood pressure is within goal and I did not have to increase the Amlodipine. Maintaining appropriate oxygen saturation on RA Oral intake is good Discussed with nursing - no problems that need addressed Reviewed the PT/OT/ST notes Medication list reviewed. Alert, oriented X 3, appropriate, smiling, upbeat MM are dry. No oropharyngeal abnormalities. Lungs - CTA HRRR, no gallop and no MM abd - soft, NT, ND, normal BS's, no guarding with palpation no significant ankle edema normal affect, good eye contact, normal speech, normal thought process, able to pay close attention and stay on topic. Impressions 1. debility due to embolic CVA's in BL cerebral hemispheres while on Xarelto. Currently on Eliquis with no events. She is still making progress daily and has been approved for another week by her insurance company. 2. PAF - has been on amiodarone and every time I have examined her over the last 2 months she has been in SR. A baseline TSH was check and is normal at 0.93. 3. DM II - very well controlled with no hypoglycemic episodes 4. HTN - well controlled and within goal. 5. tachycardia induced CM - suspect EF will be better at her next ECHO.......no tachycardia while in rehab. 6. Obesity. Has been very good about eating only what is on her tray and she has been refusing all sweets that dietary puts on her tray Very motivated to lose weight. 7. Severe OA of both knees - when she loses enough weight would consider knee replacements. Knee is now tolerable since the knee was injected earlier in the admission. 8. Ask about a COVID vaccine Objective Data Objective Data Vital Signs: Vital Signs Temp Pulse Resp BP Pulse Ox 97.4 F L 55 L 16 127/62 H 98 03/15/22 07:35 03/15/22 07:35 03/15/22 07:35 03/15/22 07:35 03/15/22 07:35 Oxygen Flow Rate (L/min) 2 Oxygen Delivery Method Room Air Weight: 313 lb 0.902 oz Body Mass Index (BMI) 52.4 Intake & Output: Intake and Output for Last 24 Hours 03/13/22 03/14/22 03/15/22 23:59 23:59 23:59 Intake Total 60 / 60 360 / 360 Balance 60 / 60 360 / 360 Lab / Micro Data Result Diagrams: 02/27/22 05:47 03/10/22 05:41 Micro: Microbiology 02/10/22 09:15 Stool Stool Occult Blood (AMY) - Final Occult Blood Positive Charges/Coding Visit Charges Inpatient E&M: 74338 Subs Hosp L1
[2022-03-15 17:00] VITALS: BMI 52.4
[2022-03-15 19:00] VITALS: BP 138/77; PULSE 78; RESP 16; TEMP 36.6; O2SAT 100
[2022-03-15] MEDS: Atorvastatin Calcium 40 MG Tablet PO (20:17)
[2022-03-15 21:50] VITALS: PULSE 66; RESP 26; O2SAT 98
[2022-03-15 23:36] VITALS: BMI 52.4
[2022-03-16] MEDS: Menthol/Lanolin/Calamine/Znox 113 GM Tube 1 APPLIC TOPICAL ×2 (05:42→20:50)
[2022-03-16] MEDS: Nystatin Powder 15gm Bottle 1 APPLIC TOPICAL ×2 (05:42→20:40)
[2022-03-16 07:32] VITALS: BP 140/62; PULSE 57; RESP 18; TEMP 36; O2SAT 97
[2022-03-16] MEDS: Arthritis Pain Compound 60 CLICK TUBE TOPICAL ×4 (07:59→20:51)
[2022-03-16] MEDS: metFORMIN HCl 500 MG Tablet PO ×2 (08:01→16:29)
[2022-03-16] MEDS: Venlafaxine XR 150 MG Capsule PO (08:01)
[2022-03-16] MEDS: Amiodarone 200 MG Tablet PO (08:01)
[2022-03-16] MEDS: Potassium Chloride Oral Tablet 20 MEQ PO ×2 (08:01→20:50)
[2022-03-16] MEDS: Aspirin 81 MG TAB.CHEW PO (08:01)
[2022-03-16] MEDS: APIXABAN 5 MG TABLET PO ×2 (08:01→20:50)
[2022-03-16] MEDS: Furosemide 40 MG Tablet PO (08:01)
[2022-03-16] MEDS: amLODIPine 5 MG Tablet PO (08:01)
[2022-03-16] MEDS: Carvedilol 6.25 MG Tablet PO ×2 (08:01→20:50)
[2022-03-16] MEDS: Empagliflozin 25 MG Tablet PO (08:02)
[2022-03-16] MEDS: Spironolactone 25 MG Tablet PO (08:02)
[2022-03-16] MEDS: SACUBITRIL/VALSARTAN 24/26 MG TABLET 1 EACH PO ×2 (08:55→20:49)
[2022-03-16 13:53] VITALS: BMI 52.4
[2022-03-16 19:37] VITALS: BP 144/81; PULSE 74; RESP 16; TEMP 36.1; O2SAT 98
[2022-03-16] MEDS: Atorvastatin Calcium 40 MG Tablet PO (20:48)
[2022-03-17] MEDS: Nystatin Powder 15gm Bottle 1 APPLIC TOPICAL ×2 (04:20→20:04)
[2022-03-17] MEDS: Menthol/Lanolin/Calamine/Znox 113 GM Tube 1 APPLIC TOPICAL ×2 (04:21→20:02)
[2022-03-17] MEDS: Spironolactone 25 MG Tablet PO (08:11)
[2022-03-17] MEDS: Aspirin 81 MG TAB.CHEW PO (08:11)
[2022-03-17] MEDS: metFORMIN HCl 500 MG Tablet PO ×2 (08:11→17:23)
[2022-03-17] MEDS: Amiodarone 200 MG Tablet PO (08:12)
[2022-03-17] MEDS: Carvedilol 6.25 MG Tablet PO ×2 (08:12→20:03)
[2022-03-17] MEDS: SACUBITRIL/VALSARTAN 24/26 MG TABLET 1 EACH PO ×2 (08:13→20:03)
[2022-03-17] MEDS: Venlafaxine XR 150 MG Capsule PO (08:13)
[2022-03-17] MEDS: APIXABAN 5 MG TABLET PO ×2 (08:13→20:03)
[2022-03-17] MEDS: Empagliflozin 25 MG Tablet PO (08:13)
[2022-03-17] MEDS: Furosemide 40 MG Tablet PO (08:14)
[2022-03-17] MEDS: Potassium Chloride Oral Tablet 20 MEQ PO ×2 (08:14→20:00)
[2022-03-17] MEDS: amLODIPine 5 MG Tablet PO (08:15)
[2022-03-17 08:23] VITALS: BP 134/64; PULSE 54; RESP 16; TEMP 36.2; O2SAT 99
--- NOTE | 2022-03-17 12:33 | PCM.PROGNOTE ---
Subjective Subjective Afebrile VSS Maintaining appropriate oxygen saturation on RA Oral intake is good Discussed with nursing - no problems that need addressed Reviewed the PT/OT/ST notes Medication list reviewed. No complaints. Denies dysuria, cough, SOB, calf pain, ST, HE, ear pain. Alert and oriented X #. NAD, sitting in the recliner and appears comfortable. Left facial droop MM are dry no cervical adenopathy Lungs - CTA, good air exchange, not tachypneic, no conversational dyspnea, able to speak in complete sentences abd - obese, soft, NT, ND with nl BS's no significant ankle edema no calf tenderness Impressions 1. debility due to multiple BL embolic cerebral infarcts 2. DM II - excellent control currently 3. HTN - BP is within goal of less than 130/80 4. Dyslipidemia - on atorvastatin 5. PAF - rate controlled on Coreg and amiodarone. Baseline TSH is normal and would repeat yearly as long as she is on Amiodarone. She has been regular every time I have examined her since admission to rehab 6. tachycardia induced CM - stable. continue current medications CBC without diff and a BMP today Plan DC for Sunday to her sister's house with [facility] RX's to go to the [facility]. Objective Data Objective Data Vital Signs: Vital Signs Temp Pulse Resp BP Pulse Ox 97.2 F L 54 L 16 134/64 H 99 03/17/22 08:23 03/17/22 08:23 03/17/22 08:23 03/17/22 08:23 03/17/22 08:23 Oxygen Flow Rate (L/min) 2 Oxygen Delivery Method Room Air Weight: 311 lb 8.211 oz Body Mass Index (BMI) 52.4 Intake & Output: Intake and Output for Last 24 Hours 03/15/22 03/16/22 03/17/22 23:59 23:59 23:59 Intake Total 1240 / 1240 480 / 480 480 / 480 Balance 1240 / 1240 480 / 480 480 / 480 Lab / Micro Data Result Diagrams: 03/17/22 13:10 03/17/22 13:10 Micro: Microbiology 02/10/22 09:15 Stool Stool Occult Blood (AMY) - Final Occult Blood Positive Charges/Coding Visit Charges Inpatient E&M: 11234 Subs Hosp L2
[2022-03-17 13:18] LABS: Hematocrit 44.5 % (37-47); Hemoglobin 14.3 g/dL (12.0-15.0); Mean Corp Hgb Conc 32.1 g/dL (32-36); Mean Corpuscular Hgb 27.6 pg (27.0-32.0); Mean Corpuscular Volume 85.7 fL (81-99); Mean Platelet Vol. 9.7 fl (6.2-12.0); Platelet Count 415 K/mm3 (150-450); RBC Distribution Width CV 16.8 % (11.6-14.6); RBC Distribution Width SD 52.3 fl (35.1-43.9); Red Blood Count 5.19 M/mm3 (4.2-5.4); White Blood Count 11.8 K/mm3 (4.4-11.0)
[2022-03-17 13:58] LABS: Anion Gap 8 (5-15); BUN 22 mg/dL (7-18); Calcium,Total 9.6 mg/dL (8.5-10.1); Chloride 103 mmol/L (98-107); EST Glomerular Filtration Rate 55 mL/min (>60); Est Glom Filt Rate - Afr Amer 67 mL/min (>60); Estimated Creatinine Clearance 52.61 ml/min; Glucose 102 mg/dL (74-106); Sodium Level 138 mmol/L (136-145)
[2022-03-17 15:25] VITALS: BMI 52.4
[2022-03-17 19:18] VITALS: BP 121/48; PULSE 70; RESP 16; TEMP 36.7; O2SAT 96
[2022-03-17 19:54] VITALS: BMI 52.4
[2022-03-17] MEDS: Arthritis Pain Compound 60 CLICK TUBE TOPICAL ×2 (20:00→20:01)
[2022-03-17] MEDS: Atorvastatin Calcium 40 MG Tablet PO (20:03)
[2022-03-17 20:13] VITALS: PULSE 75; RESP 16
[2022-03-18] MEDS: Nystatin Powder 15gm Bottle 1 APPLIC TOPICAL ×2 (05:08→21:39)
[2022-03-18 07:57] VITALS: BP 115/50; PULSE 57; RESP 16; TEMP 36.2; O2SAT 99
[2022-03-18] MEDS: SACUBITRIL/VALSARTAN 24/26 MG TABLET 1 EACH PO ×2 (08:34→20:02)
[2022-03-18] MEDS: Aspirin 81 MG TAB.CHEW PO (08:34)
[2022-03-18] MEDS: metFORMIN HCl 500 MG Tablet PO ×2 (08:34→17:07)
[2022-03-18] MEDS: Venlafaxine XR 150 MG Capsule PO (08:34)
[2022-03-18] MEDS: Carvedilol 6.25 MG Tablet PO ×2 (08:34→20:01)
[2022-03-18] MEDS: amLODIPine 5 MG Tablet PO (08:35)
[2022-03-18] MEDS: Potassium Chloride Oral Tablet 20 MEQ PO ×2 (08:35→20:00)
[2022-03-18] MEDS: APIXABAN 5 MG TABLET PO ×2 (08:35→20:02)
[2022-03-18] MEDS: Furosemide 40 MG Tablet PO (08:35)
[2022-03-18] MEDS: Spironolactone 25 MG Tablet PO (08:35)
[2022-03-18] MEDS: Amiodarone 200 MG Tablet PO (08:36)
[2022-03-18] MEDS: Arthritis Pain Compound 60 CLICK TUBE TOPICAL ×4 (08:37→20:01)
[2022-03-18] MEDS: Empagliflozin 25 MG Tablet PO (08:37)
--- NOTE | 2022-03-18 12:48 | PCM.DC ---
Discharge Instructions Diet Discharge Diet: - (1700 calorie Carbohydrate consistent diet. Low fat and low salt.) Activity Discharge Activity: May Not Drive, May Shower and Use Walker Weight Bearing Status: Full weight bearing Keep extremity elevated above heart level: Legs Dressing / Incision Call your doctor if you observe: Fever of 101 or Higher, Shortness of breath, Dizziness, Fainting spells, Chest pain, Increased palpitations (irregular heartbeat) and Calf discomfort Follow Up Care Please Follow Up With: Noé Giordano MD When: in 7-10 days Test Results: Test results from this visit will be discussed in further detail at your follow-up appointment, if applicable. Pending Tests Upon Discharge: none Discharge Plan Admission Admit Date/Time: 01/17/22 23:45 Primary Reason for Your Visit: Post stroke debility Attending Provider: Marva Kimbrough Primary Care Provider: Noé Giordano Instructions Patient Instructions: Depression Affects Your Mind ..., Depression: Tips to Help Yourself, Stroke Prevent Live W Atrial Fib Additional Instructions / Restrictions: 1. Remember your goals for treatment to help prevent another stroke going forward. a. HGBA1C less than or equal to 7. b. BP < 130/80 c. LDL (bad cholesterol) < 70. d. Take the Eliquis 5 mg twice a day everyday and do not miss doses. Most people remember the AM dose. If you find that you are missing the second dose or you are taking it later than 12 H after the first dose try setting a daily alarm on your phone or watch. 2. You had multiple strokes on both sides of the brain and had a lot of deficit when you came to rehab. You have done AMAZINGLY well and still continue to improve. I admire your perseverance! Keep working hard. 3. You have done well on the antidepressant. I would continue the Effexor XR (venlafaxine) for at least 1 year. If you are doing well at that time you could try cutting the dose down to 75 mg daily for a 1-2 months and then if everything is going well you can discontinue. You should discuss this with Dr. Giordano prior to tapering the dose. 4. You will need to have a lab done once a year as long as you are taking Amiodarone to check your thyroid function.........Amiodarone can cause the thyroid to be overactive or underactive. 5. Follow up with cardiology post DC. 6. Keep up with the weight loss Mylene........I think you would benefit greatly from having your knees replaced. You would be able to be more active and in less pain. 7. I decreased the Lasix to 40 mg once a day because you were getting too dehydrated. you have been on a low salt diet and this is important because salt makes the kidney retain water. One of the first signs you are retaining fluid is your weight will start increasing. Before you ever notice swelling in the legs your weight will have increased about 4 and 1/2 pounds. If this is addressed early then you can prevent admissions to the hospital for congestive heart failure. Buy a good scale.........digital is best Weigh yourself daily in the AM after urinating with no clothes on and keep a record. If your weight increases by 5 pounds or more in 1 week then you are retaining fluid. Cut back on salt intake and fluids and increase Lasix 40 mg to 2 times a day until your weight is back to baseline. If your weight continues to increase call your PCP or strategic debriefing specialist for instructions. Your weight on the morning of 03/19/22 will be your baseline. 8. It was a pleasure to meet you and I have been very happy to see how much you have progressed since coming to rehab. Stay active and be happy. If you have any questions after you leave rehab please do not hesitate to call me. Office: [phone] or [phone]. Discharge Orders/Prescriptions Prescriptions: New empagliflozin 25 mg tablet 25 mg PO DAILY Qty: 30 RF: 0 furosemide 40 mg Tablet 40 mg PO DAILY Qty: 30 RF: 0 acetaminophen [Tylenol] 325 mg Tablet 650 mg PO Q6H PRN PRN (Reason: PAIN) Qty: 0 RF: 0 Arthritis Pain Compound 2 click topical BID Qty: 1 RF: 5 amlodipine 5 mg Tablet 5 mg PO DAILY Qty: 30 RF: 0 atorvastatin 40 mg Tablet 40 mg PO QHS Qty: 30 RF: 0 metformin 500 mg Tablet 500 mg PO BIDCM Qty: 60 RF: 0 Entresto 24-26 mg Tablet 1 tab PO BID Qty: 60 RF: 0 venlafaxine 150 mg Capsule,Extended Release 24hr 150 mg PO DAILY Qty: 30 RF: 0 Continued aspirin 81 mg Tablet,Chewable 81 mg PO DAILY RF: 0 carvedilol 6.25 mg Tablet 6.25 mg PO BID Qty: 60 RF: 0 amiodarone 200 mg Tablet 200 mg PO DAILY Qty: 30 RF: 0 spironolactone 25 mg Tablet 25 mg PO DAILY Qty: 25 RF: 0 apixaban 5 mg Tablet 5 mg PO Q12H Qty: 60 RF: 0 Changed potassium chloride 20 mEq Tablet Extended Release 20 meq PO BIDCM Qty: 60 RF: 0 Discontinued furosemide 40 mg Tablet 40 mg PO BID RF: 0 atorvastatin 80 mg Tablet 80 mg PO QHS RF: 0 empagliflozin 10 mg Tablet 10 mg PO DAILY RF: 0 Referrals / Follow Up: Salvador Marte MD [STAFF PHYSICIAN] - 05/03/22 3:00 pm DEMI BURKS MD [NON-STAFF] - 03/31/22 10:30 am (address is [address] [place] [address] [address] ) Noé Giordano MD [Primary Care Provider] - 03/27/22 1:20 am Disposition Disposition (needs filled in before D/C Order can be placed): Home Health Service
--- NOTE | 2022-03-18 13:37 | DS.PCM_ITS ---
Providers Date of Admission: 01/17/22 Date of Discharge: 03/19/22 Primary Care Physician: Dr. Noé Giordano MD Reason For Visit: Post stroke debility Diagnosis Discharge Diagnosis (1) Physical debility: Status: Acute Code(s): R53.81 - Other malaise (2) Embolic cerebral infarction: Status: Acute Code(s): I63.40 - Cerebral infarction due to embolism of unspecified cerebral artery Qualifiers: Precerebral and cerebral artery: unspecified cerebral artery Qualified Code(s): I63.40 - Cerebral infarction due to embolism of unspecified cerebral artery (3) Facial droop due to stroke: Status: Acute (4) Dysarthria: Status: Acute Code(s): R47.1 - Dysarthria and anarthria (5) Right hemiparesis: Status: Acute Code(s): G81.91 - Hemiplegia, unspecified affecting right dominant side (6) Atrial fibrillation: Status: Chronic Code(s): I48.91 - Unspecified atrial fibrillation Qualifiers: Atrial fibrillation type: persistent (not longstanding) Qualified C ode(s): I48.19 - Other persistent atrial fibrillation (7) Tachycardia induced cardiomyopathy: Status: Chronic Code(s): R00.0 - Tachycardia, unspecified; I43 - Cardiomyopathy in diseases classified elsewhere (8) Chronic systolic CHF (congestive heart failure): Status: Chronic Code(s): I50.22 - Chronic systolic (congestive) heart failure (9) HTN (hypertension): Status: Chronic Code(s): I10 - Essential (primary) hypertension Qualifiers: Hypertension type: primary hypertension Qualified Code(s): I10 - Essential (primary) hypertension (10) Chronic anticoagulation: Status: Chronic Code(s): Z79.01 - MCFP (current) use of anticoagulants (11) Sleep disorder breathing: Status: Chronic Code(s): G47.30 - Sleep apnea, unspecified (12) Dyslipidemia (high LDL; low HDL): Status: Chronic Code(s): E78.5 - Hyperlipidemia, unspecified (13) Depression: Status: Acute Code(s): F32.A - Depression, unspecified Qualifiers: Depression Type: reactive depression Qualified Code(s): F32.9 - Major depressive disorder, single episode, unspecified (14) Heme + stool: Status: Acute Code(s): R19.5 - Other fecal abnormalities (15) Diabetes mellitus, type 2: Status: Acute Code(s): E11.9 - Type 2 diabetes mellitus without complications Qualifiers: Diabetes mellitus complication detail: with other circulatory complications Diabetes mellitus complication status: with circulatory complication Diabetes mellitus half-way insulin use: without termite control technician use Qualified Code(s): E11.59 - Type 2 diabetes mellitus with other circulatory complications (16) CRF (chronic renal failure): Status: Chronic Code(s): N18.9 - Chronic kidney disease, unspecified Qualifiers: Chronic kidney disease stage: stage 2 (mild) Qualified Code(s): N18.2 - Chronic kidney disease, stage 2 (mild) (17) Morbid obesity with BMI of 50.0-59.9, adult: Status: Acute Code(s): E66.01 - Morbid (severe) obesity due to excess calories; Z68.43 - Body mass index [BMI] 50.0-59.9, adult (18) Restless leg: Status: Resolved Code(s): G25.81 - Restless legs syndrome (19) Osteoarthritis: Status: Resolved Code(s): M19.90 - Unspecified osteoarthritis, unspecified site (20) Elevated bilirubin: Status: Resolved Code(s): R17 - Unspecified jaundice (21) RBC microcytosis: Status: Acute Code(s): R71.8 - Other abnormality of red blood cells Plan: 1. DC home with her sister and [facility] for PT/OT/SARMIENTO/SN/SW 2. Follow up with Dr. Giordano in 7-10 days 3. Follow up with Dr. Marte as arranged 4. Needs to have a home sleep study ordered - will be on Supplemental oxygen at night until she can have the sleep study and get CPAP. She has not needed the supplemental in rehab because the pulse ox is good on CPAP alone. 5. Will need to follow up with ortho in the future to discuss knee replacement. Her left knee was injected with 80 mg of Depo-Medrol and Marcaine on 01/25/22 and she achieved good pain relief. She is trying to lose weight so that she will be a good candidate for surgery. 6. She had a heme + stool but, this could be due to menstrual blood because she started her period shortly after the stool sample was taken. Has never had a colonoscopy. Medications at Discharge Home Medications aspirin 81 mg PO DAILY 01/18/22 Arthritis Pain Compound 2 click TOPICAL BID #1 bottle 03/18/22 acetaminophen [Tylenol] 650 mg PO Q6H PRN PRN #0 tab 03/18/22 amiodarone 200 mg PO DAILY #30 tab 03/18/22 amlodipine 5 mg PO DAILY #30 tab 03/18/22 apixaban 5 mg PO Q12H #60 tab 03/18/22 atorvastatin 40 mg PO QHS #30 tab 03/18/22 carvedilol 6.25 mg PO BID #60 tab 03/18/22 empagliflozin 25 mg PO DAILY #30 tab 03/18/22 furosemide 40 mg PO DAILY #30 tab 03/18/22 metformin 500 mg PO BIDCM #60 tab 03/18/22 potassium chloride 20 meq PO BIDCM #60 tab 03/18/22 sacubitril-valsartan [Entresto] 1 tab PO BID #60 tab 03/18/22 spironolactone 25 mg PO DAILY #25 tab 03/18/22 venlafaxine 150 mg PO DAILY #30 cap 03/18/22 Hospital Course Operations None Procedures None Summary of Care Provided Minutes Spent on Discharge: 45 Hospital Course: KARI DEJESUS, is a 56 YO F with a PMH of HTN, DM II, morbid obesity, PAF, chronic CHF with reduced EF at 35-40% on ECHO in October 2021 (thought to be due to tachycardia induced CM), prolonged QT interval, chronic anticoagulation on Xarelto and a hx of DCCV at [facility] in October of 2021 for AF (uncontrolled with Metoprolol, Diltiazem and Tikosyn and with decompensated acute CHF). She was later transitioned from Tikosyn to Amiodarone due to QT prolongation. Kari presented to an outside ED on 01/10/22 with c/o SARMIENTO and a sense that something was not right. A NC CTB was unremarkable and she was discharged home. The following day she had R arm weakness and slurred speech and presented to the ED at [facility]. A NC CT brain had no acute findings. CTA showed no large vessel occlusion. On PE she had a R facial droop and weakness/numbness in the R arm and the R leg. The NIHSS score was 8. MRI was not readily available and on 01/12/[address] she had a repeat CT of the brain which showed increased conspicuity of multiple hypodensities throughout the bilateral cerebral hemispheres, most notable in the left basal ganglia and the frontal lobe. There was no intracranial hemorrhage. A CTP was symmetric. She was outside the window for TPA at presentation. She was seen and evaluated by PT/OT/ST and a recommendation for transfer to an inpt rehab unit was made. She was transferred to the inpt acute rehab unit at [facility] on 01/17/22 for 3 hours of therapy daily to restore function/independence at or near her prior level of function. Prior to the stroke she used a WW and was independent with all ADL's. She lived with her mother and sister. Prior to transfer to [facility] she was transitioned from Xarelto to Eliquis due to presumed embolic CVA's while on Xarelto. At the time she arrived in rehab the modified Clatsop score was 5 consistent with severe debility. NIHSS was 8. She had severe weakness on the R side, Arm > leg. She had no movement in the R arm. She had a facial droop and mild to moderate dysarthria. She was seen by PT/OT and ST and had 3 hours of therapy daily. Because of the R side weakness she relied heavily on the L leg and the knee became quite painful and this limited her progress in therapy. A plain x- ray showed severe narrowing of the left knee medial compartment. The left knee was injected with 80 mg of Depo-Medrol plus Marcaine on 01/26/2022. The next day she had good relief of pain. A brace was applied to the Left knee for therapy and she did not c/o pain in the knees for the duration of her stay in rehab. She is likely going to need knee replacements going forward but, she understands that she needs to lose weight and recover from the strokes first. Prior to her DC a Factor X Inhibitor activity was obtained and was in the therapeutic window. The importance of taking this medication every 12 H without missing any doses was impressed on her she she had multiple BL cerebral embolic infarcts while taking Xarelto. She denied missing doses. While in rehab she was diagnosed with depression and she was started on Effexor XR. Her mood improved and she was able to control her diet and consumed no outside food during her admission and she did not eat any sweets placed on her tray by dietary. Her diabetes came under excellent control with Jardiance and Glucophage 500 mg BID. BS's were all under 150 at the time of DC with no hypoglycemia. BP was well controlled prior to DC with numbers consistently < 130/80 which is her goal. CORI hose were used for LE compression and the edema present at admission resolved. The creat was increasing and she became lightheaded with Lasix BID and the dose was changed to just once daily. With the change she still had no LE edema and her Lungs were CTA with no complaints of SOB/orthopnea. Her mood improved greatly on the Effexor and prior to DC she was smiling, doing everything asked of her in therapy and very interactive with staff. She was sleeping well at night and no longer tearful. Kari was very motivated to get better and go home to her sister's house. She worked hard every day and made excellent progress. Prior to DC she had a MRS of 4. She was MOD I with maneuvering the WC and she was able to do her laundry, washer/dryer, at CGA with no LOB. After she was made CAROLE she was doing laps in the WC with no assist. She was able to self advance the RLE when using the WC and when ambulating. She began to be able to dorsiflex the R foot. She initially was only able to take steps at the wall rail and the therapist had to advance her R leg for her. Prior to DC she was able to ambulate 20' at CGA/MIN A for trunk control while advancing her own RLE with the use of a vik walker. She still fatigues easily but she is gaining strength and endurance. She was able to stand and pivot with min assist of 1 using the HW. She was MOD I with eating and required only min assist with grooming. She is still requiring mod assist for bathing and UB/LB dressing. She is min assist for toilet transfer but, mod assist for toileting/hygiene. She was discharged from on 02/10/22 and has been doing facial exercises on her own in her room. The dysarthria has resolved and she is eating regular textures with thin liquids without any trouble/coughing. Prior to DC her family was brought in for family training to see if they would be able to provide the degree of assistance she still needs and learn how to best assist her. Family felt comfortable taking her home. While in the rehab unit she had an overnight trending pulse ox that was abnormal and oxygen was ordered for anytime she was sleeping. The RT set up one of the hospital CPAP units for her and she was complaint with using the machine while sleeping. She no longer has chronic fatigue and she is not sleepy during the day. She has no RLS. She will need a formal sleep study and now that she will have Medicaid a sleep study can be arranged for her at home. Until she can get her own CPAP unit she will be wearing O2 at night at 2 LPM. Kari was discharged on 03/19/22 and went home with her sister. She will have [facility] for PT/OT/ SN. They currently do not have the staff to provide a SW or SARMIENTO. She will follow up with Dr. Marte, Dr. Noé Giordano and with neurology. Physical Exam Const alert, oriented x3, no apparent distress and well nourished Constitutional Narrative: Smiling and very happy to be going home. General Appearance: cooperative, comfortable, well kempt and well developed HEENT normocephalic and head/scalp atraumatic HEENT Narrative: dry MM - I am always encouraging her to drink more Eyes PERRL, EOMs intact bilaterally, conjunctivae normal and no scleral icterus Eyes Narrative: Able to close the R eye but not as tightly as the left and the R eye appears larger than the left due to this. Neck no lymphadenopathy, supple, no JVD and no carotid bruits General: trachea midline; Negative for lymphadenopathy Lymph Lymphatic: no lymphedema noted Chest Chest: symmetrical chest wall rise Resp normal respiratory effort, normal air movement, no use of accessory muscles and clear to auscultation bilaterally Resp Narrative: Breath sounds are diminished secondary to body habitus but she is able to speak in full sentences with no tachypnea. Effort and Inspection: able to speak in complete sentences; Negative for tachypneic or uses accessory muscles Auscultation: clear to auscultation bilaterally and diminished lung sounds bilateral (more likely than not due to body habitus) Cardio regular rate, regular rhythm, S1 normal heart sound, S2 normal heart sound, no murmurs, no rub and no gallops Cardio Narrative: No ectopy GI normal to inspection, nondistended, normoactive bowel sounds, soft to palpation, non-tender and non-distended GI Narrative: having regular BM's Palpation: Negative for guarding Extremity no clubbing, cyanosis or edema, no calf tenderness and no pedal edema Extremity Narrative: ANDRES wraps are in place. General Extremity: Negative for clubbing, cyanosis or edema Skin no wounds Skin Narrative: No rashes, no skin breakdown. General Skin Exam: no breakdown Rashes: no rashes Wounds: Negative for wounds noted Wound Narrative: She has some irritation beneath the breasts where it is frequently moist. Neuro oriented x3 Neuro Narrative: I reviewed the therapy notes and she continues to get stronger. Able to dorsiflex the R foot somewhat now. She is also able to move the R arm a little. Persistent facial droop but, no dysarthria or aphasia. Psych mental status grossly normal, thought process normal, cooperative, affect normal, activity/motor behavior normal, denies hallucinations, denies homicidal ideation and denies suicidal ideation Psych Narrative: Appropriate, making good eye contact. Able to stay on topic and focus. No flight of ideas. Does not appear anxious or depressed. Conversant and relating well to staff. Overall much improved on the Effexor which was started at admission. No adverse SE's. Appearance: grossly normal, appropriate and well kempt Attitude: calm and No agitated Activity / Motor Behavior: appropriate eye contact Speech: normal speech Mood & Affect: euthymic mood; Negative for depressed, anxious or tearful Thought Process: normal thought process Thought Content: normal thought content, No suicidality, No delusion(s) and No hallucination(s) Attention / Concentration: attention grossly intact and concentration grossly intact Insight: insight good Judgement: judgement good Weight / BMI Weight Weight: 311 lb 8.211 oz Body Mass Index (BMI) 52.4 ABG / Lab / Microbiology Data Result Diagrams: 03/17/22 13:10 03/17/22 13:10 Laboratory: Laboratory Results - last 24 hr 03/17/22 13:10: Sodium 138, Potassium 4.0, Chloride 103, Carbon Dioxide 27.0, Anion Gap 8, BUN 22 H, Creatinine 1.10 H, Estim Creat Clear Calc 52.61, Est GFR (MDRD) Af Amer 67, Est GFR (MDRD) Non-Af 55 L, BUN/Creatinine Ratio 20.0, Glucose 102, Calcium 9.6 Microbiology: Microbiology 02/10/22 09:15 Stool Stool Occult Blood (AMY) - Final Occult Blood Positive Indicators for Scoring Admitted with or Primary Diagnosis of CVA/Stroke: Yes Hx of CVA/Stroke: Yes Modified Clatsop Score MRS Score at time of Evaluation: 4-Moderate/severe disability NIHSS NIHSS 1a. Level of Consciousness: Alert; keenly responsive 1b. LOC Questions: Answers BOTH questions correctly. 1c. LOC Commands: Performs both tasks correctly. 2. Best Gaze: Normal 3. Visual: No visual loss 4. Facial Palsy: Minor paralysis (flattened nasolabial fold, asymmetry on smiling) 5a. Left Arm: No drift; arm holds 90 (or 45) degrees for full 10 seconds 5b. Right Arm: Some effort against gravity; 6a. Left Leg: No drift; leg holds 30-degree position for full 5 seconds 6b. Right Leg: Drift; leg falls by the end of 5-seconds, but does not hit bed 7. Limb Ataxia: Absent 8. Sensory: Normal; no sensory loss 9. Best Language: No aphasia; normal 10. Dysarthria: Normal 11. Extinction and Inattention: No abnormality Total: 4 Stroke Questions Stroke Team Activated: No D/C Instructions Discharge Diet: - (1700 calorie Carbohydrate consistent diet. Low fat and low salt.) Weight Bearing Status: Full weight bearing Keep extremity elevated above heart level: Legs Call your doctor if you observe: Fever of 101 or Higher, Shortness of breath, Dizziness, Fainting spells, Chest pain, Increased palpitations (irregular heartbeat) and Calf discomfort Pending Tests Upon Discharge: none Please Follow Up With: Noé Giordano MD When: in 7-10 days Meaningful Use Info Meaningful Use Diagnoses (Choose all that apply): Ischemic CVA CVA Therapy Assessed for PT,OT and/or ST?: Yes Ischemic Stroke Antithrombotic order at d/c?: Yes Dx of Atrial fib/flutter?: Yes Anticoagulant at discharge?: Yes Statins at discharge?: Yes Primary Dx Acute Ischemic CVA?: Yes IV tPA ordered during stay?: No Reason IV t-PA not ordered: Treatment not Indicated Discharge Plan Admission Admit Date/Time: 01/17/22 23:45 Primary Reason for Your Visit: Post stroke debility Attending Provider: Marva Kimbrough Primary Care Provider: Noé Giordano Instructions Patient Instructions: Depression Affects Your Mind ..., Depression: Tips to Help Yourself, Stroke Prevent Live W Atrial Fib Additional Instructions / Restrictions: 1. Remember your goals for treatment to help prevent another stroke going forward. a. HGBA1C less than or equal to 7. b. BP < 130/80 c. LDL (bad cholesterol) < 70. d. Take the Eliquis 5 mg twice a day everyday and do not miss doses. Most people remember the AM dose. If you find that you are missing the second dose or you are taking it later than 12 H after the first dose try setting a daily alarm on your phone or watch. 2. You had multiple strokes on both sides of the brain and had a lot of deficit when you came to rehab. You have done AMAZINGLY well and still continue to improve. I admire your perseverance! Keep working hard. 3. You have done well on the antidepressant. I would continue the Effexor XR (venlafaxine) for at least 1 year. If you are doing well at that time you could try cutting the dose down to 75 mg daily for a 1-2 months and then if everything is going well you can discontinue. You should discuss this with Dr. Giordano prior to tapering the dose. 4. You will need to have a lab done once a year as long as you are taking Amiodarone to check your thyroid function.........Amiodarone can cause the thyro id to be overactive or underactive. 5. Follow up with cardiology post DC. 6. Keep up with the weight loss Kari........I think you would benefit greatly from having your knees replaced. You would be able to be more active and in less pain. 7. I decreased the Lasix to 40 mg once a day because you were getting too dehydrated. you have been on a low salt diet and this is important because salt makes the kidney retain water. One of the first signs you are retaining fluid is your weight will start increasing. Before you ever notice swelling in the legs your weight will have increased about 4 and 1/2 pounds. If this is addressed early then you can prevent admissions to the hospital for congestive heart failure. Buy a good scale.........digital is best Weigh yourself daily in the AM after urinating with no clothes on and keep a record. If your weight increases by 5 pounds or more in 1 week then you are retaining fluid. Cut back on salt intake and fluids and increase Lasix 40 mg to 2 times a day until your weight is back to baseline. If your weight continues to increase call your PCP or clinical counselor for instructions. Your weight on the morning of 03/19/22 will be your baseline. 8. It was a pleasure to meet you and I have been very happy to see how much you have progressed since coming to rehab. Stay active and be happy. If you have any questions after you leave rehab please do not hesitate to call me. Office: [phone] or [phone]. Discharge Orders/Prescriptions Prescriptions: New empagliflozin 25 mg tablet 25 mg PO DAILY Qty: 30 RF: 0 furosemide 40 mg Tablet 40 mg PO DAILY Qty: 30 RF: 0 acetaminophen [Tylenol] 325 mg Tablet 650 mg PO Q6H PRN PRN (Reason: PAIN) Qty: 0 RF: 0 Arthritis Pain Compound 2 click topical BID Qty: 1 RF: 5 amlodipine 5 mg Tablet 5 mg PO DAILY Qty: 30 RF: 0 atorvastatin 40 mg Tablet 40 mg PO QHS Qty: 30 RF: 0 metformin 500 mg Tablet 500 mg PO BIDCM Qty: 60 RF: 0 Entresto 24-26 mg Tablet 1 tab PO BID Qty: 60 RF: 0 venlafaxine 150 mg Capsule,Extended Release 24hr 150 mg PO DAILY Qty: 30 RF: 0 Continued aspirin 81 mg Tablet,Chewable 81 mg PO DAILY RF: 0 carvedilol 6.25 mg Tablet 6.25 mg PO BID Qty: 60 RF: 0 amiodarone 200 mg Tablet 200 mg PO DAILY Qty: 30 RF: 0 spironolactone 25 mg Tablet 25 mg PO DAILY Qty: 25 RF: 0 apixaban 5 mg Tablet 5 mg PO Q12H Qty: 60 RF: 0 Changed potassium chloride 20 mEq Tablet Extended Release 20 meq PO BIDCM Qty: 60 RF: 0 Discontinued furosemide 40 mg Tablet 40 mg PO BID RF: 0 atorvastatin 80 mg Tablet 80 mg PO QHS RF: 0 empagliflozin 10 mg Tablet 10 mg PO DAILY RF: 0 Referrals / Follow Up: Salvador Marte MD [STAFF PHYSICIAN] - 05/03/22 3:00 pm DEMI BURKS MD [NON-STAFF] - 03/31/22 10:30 am (address is [address] [place] [address] [address] ) Noé Giordano MD [Primary Care Provider] - 03/27/22 1:20 am Disposition Disposition (needs filled in before D/C Order can be placed): Home Health Service Charges/Coding Visit Charges Inpatient E&M: 70737 Disch Hosp
[2022-03-18 15:07] VITALS: BMI 52.4
[2022-03-18 18:58] VITALS: BP 146/77; PULSE 65; RESP 16; TEMP 36.6; O2SAT 98
[2022-03-18 19:52] VITALS: BMI 52.4
[2022-03-18 19:54] VITALS: PULSE 61; RESP 16; O2SAT 95
[2022-03-18] MEDS: Atorvastatin Calcium 40 MG Tablet PO (20:02)
[2022-03-18] MEDS: Menthol/Lanolin/Calamine/Znox 113 GM Tube 1 APPLIC TOPICAL (20:03)
[2022-03-18 20:40] VITALS: BMI 52.4
[2022-03-19] MEDS: Nystatin Powder 15gm Bottle 1 APPLIC TOPICAL (06:22)
[2022-03-19 07:20] VITALS: BP 110/46; PULSE 57; RESP 16; TEMP 36; O2SAT 96
[2022-03-19] MEDS: Arthritis Pain Compound 60 CLICK TUBE TOPICAL ×2 (07:58)
[2022-03-19] MEDS: Venlafaxine XR 150 MG Capsule PO (07:58)
[2022-03-19] MEDS: Aspirin 81 MG TAB.CHEW PO (07:58)
[2022-03-19] MEDS: metFORMIN HCl 500 MG Tablet PO (07:58)
[2022-03-19] MEDS: Furosemide 40 MG Tablet PO (07:59)
[2022-03-19] MEDS: amLODIPine 5 MG Tablet PO (07:59)
[2022-03-19] MEDS: SACUBITRIL/VALSARTAN 24/26 MG TABLET 1 EACH PO (07:59)
[2022-03-19] MEDS: Carvedilol 6.25 MG Tablet PO (07:59)
[2022-03-19] MEDS: Amiodarone 200 MG Tablet PO (08:00)
[2022-03-19] MEDS: Potassium Chloride Oral Tablet 20 MEQ PO (08:00)
[2022-03-19] MEDS: Spironolactone 25 MG Tablet PO (08:00)
[2022-03-19] MEDS: APIXABAN 5 MG TABLET PO (08:00)
[2022-03-19] MEDS: Empagliflozin 25 MG Tablet PO (08:00)
[2022-03-19 09:28] VITALS: BMI 52.4
[2022-03-19 12:47] VITALS: BP 110/46; PULSE 57; RESP 16; TEMP 36; O2SAT 96
--- NOTE | 2022-03-19 12:49 | NURSING ---
Discharge instructions given to patient and verbalized understanding.
--- NOTE | 2022-03-22 16:15 | CASEMGMT ---
Social Work Received call from pt's sister stating [facility] did not complete SOC; when sister call [facility], they stated they do not accept pt's insurance. SW contacted [facility] inquiring - intake stated they are able to accept the pt and unsure of the miscommunication - they will look into and return call. SW received call from nurse RONEN Breen from pt's PCP office stating she has contacted [facility]; they can accept, they just need clinical information. Updated Nuha that [facility] can accept - awaiting return call. Waited all day for call - was not placed. SW contacted sister and she is agreeable to use [facility]. Renick has an [employer] TECHNICIAN and SW to continue to assist. Sister appreciative. Left message updating RONEN Breen. Orders and clinicals faxed to [facility]. Luz Albrecht, ST[facility]
== END 2022-03-19 12:57 | disposition home health service (06) | DRG 57 ==
PROVIDERS: Admitting Provider Internal Medicine; PCP Family Medicine; Visit Provider Internal Medicine
DX: I69.351 Hemiplegia and hemiparesis following cerebral infarction affecting right dominant side (principal); I13.0 Hypertensive heart and chronic kidney disease with heart failure and stage 1 through stage 4 chronic kidney disease, or unspecified chronic kidney disease; I50.22 Chronic systolic (congestive) heart failure; Z68.43 Body mass index [BMI] 50.0-59.9, adult; E11.22 Type 2 diabetes mellitus with diabetic chronic kidney disease; E11.59 Type 2 diabetes mellitus with other circulatory complications; I48.0 Paroxysmal atrial fibrillation; G25.81 Restless legs syndrome; E78.5 Hyperlipidemia, unspecified; E66.01 Morbid (severe) obesity due to excess calories; N18.2 Chronic kidney disease, stage 2 (mild); F32.9 Major depressive disorder, single episode, unspecified; I69.322 Dysarthria following cerebral infarction; I87.2 Venous insufficiency (chronic) (peripheral); M17.0 Bilateral primary osteoarthritis of knee; G47.30 Sleep apnea, unspecified; I69.392 Facial weakness following cerebral infarction; Z79.01 Long term (current) use of anticoagulants; Z79.899 Other long term (current) drug therapy; Z79.82 Long term (current) use of aspirin
CPT/HCPCS: 36415; 73562; 80048; 80053; 80061; 80069; 82274; 82607; 82728; 82746; 82962; 83036; 83540; 83550; 83735; 84100; 84443; 85014; 85018; 85027; 85270; 85610; 92507; 92526; 92610; 94002; 94003; 94660; 94762; 96125; 97110; 97112; 97116; 97129; 97130; 97140; 97162; 97166; 97530; 97535; 97537; 97542; 97802; 97803

== ENCOUNTER → 2023-01-09 | Outpatient (CLI) | payer MEDICARE, MEDICAID, SELFPAY ==
[2023-01-09 13:03] LABS: Absolute Lymphocyte Count 1.79 X10^3/uL (0.83-4.51); Absolute Neutrophil Count 4.6 X10^3/uL (2.0-7.7); Basophil# 0.06 X10^3/uL; Basophil% 0.9 % (0-1); Eosinophil# 0.28 X10^3/uL; Hematocrit 29.8 % (37-47); Lymphocyte # 1.79 X10^3/ul (0.83-4.51); Lymphocyte % 25.4 % (19-41); Mean Corp Hgb Conc 30.2 g/dL (32-36); Mean Corpuscular Hgb 27.1 pg (27.0-32.0); Mean Corpuscular Volume 89.8 fL (81-99); Mean Platelet Vol. 9.5 fl (6.2-12.0); Monocyte# 0.34 X10^3/uL; Monocyte% 4.8 % (0-10); NRBC Flagged by Analyzer 0 % (0-5); Neutrophil # 4.55 X10^3/uL (2.7-7.7); Neutrophil % 64.6 % (47-70); Platelet Count 363 K/mm3 (150-450); RBC Distribution Width CV 14.4 % (11.6-14.6); RBC Distribution Width SD 46.5 fl (35.1-43.9); Red Blood Count 3.32 M/mm3 (4.2-5.4)
[2023-01-09 13:28] LABS: AST(SGOT) 17 U/L (15-37); Alanine Aminotransfer ALT/SGPT 26 U/L (13-56); Albumin, Serum 3.1 g/dL (3.2-5.0); Alkaline Phosphatase 88 U/L (45-117); Anion Gap 6 (5-15); BUN 18 mg/dL (7-18); BUN/Creat Ratio 21.7 RATIO (10-20); Calcium,Total 8.4 mg/dL (8.5-10.1); Chloride 109 mmol/L (98-107); Creatinine, Serum 0.83 mg/dL (0.55-1.02); EST Glomerular Filtration Rate 76 mL/min (>60); Est Glom Filt Rate - Afr Amer 92 mL/min (>60); Globulin 3.1 g/dL (2.2-4.2); Glucose 108 mg/dL (74-106); Protein, Total 6.2 g/dL (6.4-8.2); Sodium Level 141 mmol/L (136-145); Thyroid Stim Hormone (TSH) 0.42 uIU/mL (0.358-3.74)
== END | disposition home or self-care (01) ==
PROVIDERS: PCP Family Medicine; Referring Provider Physician Assistant Medical; Visit Provider Physician Assistant Medical
DX: I77.810 Thoracic aortic ectasia (principal); I43 Cardiomyopathy in diseases classified elsewhere; Z79.899 Other long term (current) drug therapy; R00.0 Tachycardia, unspecified; Z79.01 Long term (current) use of anticoagulants
CPT/HCPCS: 36415; 80053; 84443; 85025

== ENCOUNTER → 2023-02-19 | Outpatient (CLI) | payer MEDICARE, MEDICAID, SELFPAY ==
--- NOTE | 2023-02-19 09:39 | ECHOCS_ITS ---
Reason For Study: DILATED AORTA Procedure This was a 2D Doppler, Color Flow transthoracic echocardiogram. The study was technically difficult. Contrast injection was performed. Exam performed in department. Left Ventricle Normal LV size. Mild concentric left ventricular hypertrophy. Left ventricular systolic function is normal. The estimated ejection fraction is 60 %. Stage 1 diastolic dysfunction. No regional wall motion abnormalities noted. Right Ventricle Normal RV size. Normal systolic function. Atria Normal left atrium. Normal right atrium. Mitral Valve Normal mitral valve. Tricuspid Valve Normal tricuspid valve. Mild (1+) tricuspid valve insufficiency. Pulmonary artery systolic pressure is 28 mmHg. Aortic Valve The aortic valve is not well visualized. Mild (1+) aortic valve insufficiency. Pulmonic Valve The pulmonic valve is not well visualized. Great Vessels Moderately dilated aortic root. The pulmonary artery is normal size. Normal inferior vena cava. Pericardium/Pleural No pericardial effusion. Medication 22 gauge I.V. with prn adaptor inserted into right arm. Diluted definity 2ml given slow IV push to enhance endocardial definition. MMode/2D Measurements & Calculations LVIDd: 5.9 cm IVSd: 1.6 cm LVOT diam: 2.1 cm LVIDs: 3.0 cm LVPWd: 1.2 cm FS: 48.4 % LVOT area: 3.6 cm2 CO(Teich): 429.5 l/min Ao root diam: 4.8 cm LAV(MOD-sp4): 109.6 ml LVAd ap4: 43.7 cm2 CO(MOD-sp4): 269.1 l/min SV(sp4-el): 96.3 ml LVLd ap4: 9.5 cm SV(MOD-sp4): 85.3 ml EDV(MOD-sp4): 157.8 ml EDV(sp4-el): 170.0 ml LVAs ap4: 25.8 cm2 LVLs ap4: 7.7 cm ESV(MOD-sp4): 72.5 ml ESV(sp4-el): 73.7 ml EF(MOD-sp4): 54.1 % EF(sp4-el): 56.7 % LA A4 area: 28.8 cm2 LA dimension(2D): 5.9 cm RA A4 area: 17.3 cm2 Time Measurements MV dec time: 0.27 sec Doppler Measurements & Calculations MV E max juventino: 68.0 cm/sec Lat Peak E' Juventino: 5.0 cm/sec Med Peak E' Juventino: 6.3 cm/sec MV A max juventino: 117.8 cm/sec E/E' lat: 13.7 E/E' med: 10.9 MV E/A: 0.58 MV V2 max: 105.3 cm/sec Ao V2 max: 193.4 cm/sec MV max P.5 mmHg MV dec slope: 256.1 cm/sec2 Ao max P.0 mmHg MV V2 mean: 54.1 cm/sec Ao V2 mean: 126.0 cm/sec MV mean P.5 mmHg Ao mean P.7 mmHg MV V2 VTI: 36.4 cm Ao V2 VTI: 49.6 cm AV (velocity ratio): 0.68 MVA(VTI): 3.3 cm2 STANLEY(I,D): 2.4 cm2 STANLEY(V,D): 2.2 cm2 LV V1 max: 121.9 cm/sec SV(LVOT): 120.0 ml PA V2 max: 119.2 cm/sec LV V1 max P.9 mmHg PA V2 mean: 78.7 cm/sec LV V1 mean P.9 mmHg LV V1 mean: 79.7 cm/sec LV V1 VTI: 33.7 cm TR max juventino: 245.5 cm/sec TR max P.1 mmHg ECHO/Echo Complete W/ Contrast Interpretation Summary Normal LV size. Left ventricular systolic function is normal. The estimated ejection fraction is 60 %. Moderately dilated aortic root. Stage 1 diastolic dysfunction. Mild concentric left ventricular hypertrophy. Contrast injection was performed. Ordering Physician: Suha Adams Referring Physician: Suha Adams Performed By: Nydia Thomas RCS
== END | disposition home or self-care (01) ==
LOC: CVS 09:37
PROVIDERS: PCP Family Medicine; Referring Provider Physician Assistant Medical; Visit Provider Physician Assistant Medical
DX: I48.0 Paroxysmal atrial fibrillation (principal); I77.810 Thoracic aortic ectasia
CPT/HCPCS: 93306; Q9957; A4216; C8929